=== PATIENT | female | born 1930 | race Two or more races ===

== ENCOUNTER 2016-02-23 09:28 | Observation (INO) | payer MEDICARE, MEDICAID ==
[~2016-02-23] VITALS: Ht 154.9 cm; Wt 60.6 kg
[~2016-02-23 09:28] MED LIST: AMLO5TAB2 PO; AMLO5TAB4 PO; ASPI81TA2 PO; CARV12.5 PO; CARV25TA PO; CARV6.252 PO; CHOL10002 PO; CLON0.1T PO; FURO-68 PO; FURO20TA3 PO; HYDR-2869 PO; Hydrocodone/Acetaminophen PO; LEVO125T5 PO; LEVO150T5 PO; LEVO500T8 PO; LISI-334 PO; POTA20TA4 PO; PRED20TA PO; SIMV20TA3 PO
[2016-02-23] MEDS ORDERED: AMLO5TAB2 PO (09:49)
--- NOTE | 2016-02-23 10:06 | EKG ---
[facility] [address] [place] [address] Test Date: 2016-02-23 Test Time: 09:32:44 Pat Name: MAE QUINONES Department: Room: Gender: F Cell Maker: : [id number] Requested By: MINI ST Order Number: [id number] Reading MD: Florence Braswell Measurements Intervals [place] Rate: 72 P: 43 MA: 166 QRS: -41 QRSD: 210 T: 137 QT: 478 QTc: 525 Interpretive Statements SINUS RHYTHM LEFT ATRIAL ABNORMALITY ABNORMAL LEFT AXIS DEVIATION LEFT BUNDLE BRANCH BLOCK Electronically Signed On 02-25-2016 23:59:07 [employer]ENTICE by Florence Braswell
[2016-02-23 10:08] LABS: BASO # 0.1 x10^3/uL (0.0-0.2); BASO % 1 % (0-3); EOS % 1 % (0-3); HEMATOCRIT 31.3 % (36.0-47.0); HEMOGLOBIN 10.7 g/dL (12.0-15.5); LYMPH # 0.8 x10^3/uL (1.0-4.8); LYMPH % 9 % (24-48); MEAN CORPUSCULAR HEMOGLOBIN 32 pg (25-35); MEAN CORPUSCULAR HGB CONC 34 g/dL (31-37); MEAN CORPUSCULAR VOLUME 94 fL (79-100); MONO % 4 % (0-9); NEUT % 85 % (31-73); PLATELET COUNT 310 x10^3/uL (140-400); RED BLOOD COUNT 3.33 x10^6/uL (3.50-5.40); RED CELL DISTRIBUTION WIDTH 14.3 % (11.5-14.5); WHITE BLOOD COUNT 8.6 x10^3/uL (4.0-11.0)
[2016-02-23 10:13] LABS: CALCIUM 9.1 mg/dL (8.5-10.1); CREATININE 0.7 mg/dL (0.6-1.0); GFR 79.2; POTASSIUM 4.4 mmol/L (3.5-5.1)
[2016-02-23 10:18] LABS: ALBUMIN 3.7 g/dL (3.4-5.0); DIRECT BILIRUBIN 0.2 mg/dL (0.0-0.2); TOTAL BILIRUBIN 1.1 mg/dL (0.2-1.0)
[2016-02-23 10:21] LABS: INR 1.2 (0.8-1.1)
[2016-02-23 10:24] LABS: CKMB MASS 0.7 ng/mL (0.0-3.6); CREATINE KINASE 41 U/L (26-192)
--- NOTE | 2016-02-23 10:28 | RAD ---
Portable chest, 02/23/2016: History: Chest pain Comparison is made to a study from 01/14/2016. A left-sided transvenous pacemaker remains in place with 2 leads extending into the right heart. The heart is enlarged. The pulmonary vascularity is congested with loss of vascular margination.. There are mixed interstitial and airspace opacities in both lungs most compatible with pulmonary edema. These have worsened since the previous study. There is probably pleural fluid contributing to the right basilar opacity. IMPRESSION: Worsening moderate bilateral pulmonary infiltrates most compatible with pulmonary edema due to congestive heart failure.
--- NOTE | 2016-02-23 10:55 | PHYS DOC ---
Past Medical History Past Medical History: CHF, High Cholesterol, Hypertension, Hypothyroid Additional Past Medical Histor: hiatal hernia Past Surgical History: Pacemaker Alcohol Use: Occasionally Drug Use: None Adult General Chief Complaint Chief Complaint: CHEST PAIN HPI HPI Patient is a 85 year old female who presents with shortness of breath. She speaks Romansh and her daughter is interpreting and states that this morning when she woke up she's been feeling short of breath. She denies any chest pain nausea vomiting. She states that since she sits up in a chair with oxygen she feels better. Currently she denies any chest pain and no according to daughter she was told she had some this morning. She was on 40 mg by mouth Lasix and had that decreased to 20 mg in January when she was admitted and followed up with Dr. Conklin. Review of Systems Review of Systems Constitutional: Denies fever or chills [] Eyes: Denies change in visual acuity, redness, or eye pain [] HENT: Denies nasal congestion or sore throat [] Respiratory: Denies cough, positive for shortness of breath [] Cardiovascular: No additional information not addressed in HPI [] GI: Denies abdominal pain, nausea, vomiting, bloody stools or diarrhea [] : Denies dysuria or hematuria [] Musculoskeletal: Denies back pain or joint pain [] Integument: Denies rash or skin lesions [] Neurologic: Denies headache, focal weakness or sensory changes [] Endocrine: Denies polyuria or polydipsia [] Current Medications Current Medications Current Medications Medications (Trade) Dose Ordered Sig/Kenneth Start Time Stop Time Status Last Admin Dose Admin Furosemide (Lasix) 20 mg 1X ONCE 02/23/16 11:45 02/23/16 11:46 DC 02/23/16 11:53 20 MG Allergies Allergies Allergies Coded Allergies Type Severity Reaction Last Updated Verified No Known Drug Allergies 11/24/13 No Physical Exam Physical Exam Constitutional: Well developed, well nourished, no acute distress, non-toxic appearance. [] HENT: Normocephalic, atraumatic, bilateral external ears normal, oropharynx moist, no oral exudates, nose normal. [] Eyes: PERRLA, EOMI, conjunctiva normal, no discharge. [] Neck: Normal range of motion, no tenderness, supple, no stridor. [] Cardiovascular:Heart rate regular rhythm, no murmur [] Lungs & Thorax: Coarse bilaterally with decreased breath sounds at the bases [] Abdomen: Bowel sounds normal, soft, no tenderness, no masses, no pulsatile masses. [] Skin: Warm, dry, no erythema, no rash. [] Back: No tenderness, no CVA tenderness. [] Extremities: No tenderness, no cyanosis, no clubbing, ROM intact, no edema. [] Neurologic: Alert and oriented X 3, normal motor function, normal sensory function, no focal deficits noted. [] Psychologic: Affect normal, judgement normal, mood normal. [] Current Patient Data Vital Signs Vital Signs Date Time Temp Pulse Resp B/P Pulse Ox O2 Delivery O2 Flow Rate FiO2 02/23/16 12:39 66 16 159/69 97 02/23/16 11:09 Nasal Cannula 2 02/23/16 09:32 97.7 97.7 Lab Values Laboratory Tests Test 02/23/16 09:45 02/23/16 10:50 White Blood Count 8.6x10^3/uL (4.0-11.0) Red Blood Count 3.33x10^6/uL (3.50-5.40) L Hemoglobin 10.7g/dL (12.0-15.5) L Hematocrit 31.3% (36.0-47.0) L Mean Corpuscular Volume 94fL (79-100) Mean Corpuscular Hemoglobin 32pg (25-35) Mean Corpuscular Hemoglobin Concent 34g/dL (31-37) Red Cell Distribution Width 14.3% (11.5-14.5) Platelet Count 310x10^3/uL (140-400) Neutrophils (%) (Auto) 85% (31-73) H Lymphocytes (%) (Auto) 9% (24-48) L Monocytes (%) (Auto) 4% (0-9) Eosinophils (%) (Auto) 1% (0-3) Basophils (%) (Auto) 1% (0-3) Neutrophils # (Auto) 7.3x10^3uL (1.8-7.7) Lymphocytes # (Auto) 0.8x10^3/uL (1.0-4.8) L Monocytes # (Auto) 0.3x10^3/uL (0.0-1.1) Eosinophils # (Auto) 0.1x10^3/uL (0.0-0.7) Basophils # (Auto) 0.1x10^3/uL (0.0-0.2) Prothrombin Time 14.0SEC (11.7-14.0) Prothrombin Time INR 1.2 (0.8-1.1) H Sodium Level 134mmol/L (136-145) L Potassium Level 4.4mmol/L (3.5-5.1) Chloride Level 101mmol/L (98-107) Carbon Dioxide Level 25mmol/L (21-32) Anion Gap 8 (6-14) Blood Urea Nitrogen 17mg/dL (7-20) Creatinine 0.7mg/dL (0.6-1.0) Estimated GFR (Cockcroft-Gault) 79.2 Glucose Level 211mg/dL (70-99) H Calcium Level 9.1mg/dL (8.5-10.1) Magnesium Level 2.0mg/dL (1.8-2.4) Total Bilirubin 1.1mg/dL (0.2-1.0) H Direct Bilirubin 0.2mg/dL (0.0-0.2) Aspartate Amino Transferase (AST) 31U/L (15-37) Alanine Aminotransferase (ALT) 32U/L (14-59) Alkaline Phosphatase 55U/L (46-116) Creatine Kinase 41U/L (26-192) Creatine Kinase MB (Mass) 0.7ng/mL (0.0-3.6) Creatine Kinase MB Relative Index % (0-4) Troponin I Quantitative < 0.017ng/mL (0.000-0.055) BT-Xrx-L-Type Natriuretic Peptide 4718pg/mL (0-449) H Total Protein 7.0g/dL (6.4-8.2) Albumin 3.7g/dL (3.4-5.0) Lipase 220U/L (73-393) Thyroid Stimulating Hormone (TSH) 1.865uIU/mL (0.358-3.74) Urine Collection Type Unknown Urine Color Yellow Urine Clarity Cloudy Urine pH 6.5 Urine Specific [place] 1.020 Urine Protein 30mg/dL (NEG-TRACE) Urine Glucose (UA) 100mg/dL (NEG) Urine Ketones (Stick) Negativemg/dL (NEG) Urine Blood Negative (NEG) Urine Nitrite Negative (NEG) Urine Bilirubin Negative (NEG) Urine Urobilinogen Dipstick 1.0mg/dL (0.2 mg/dL) Urine Leukocyte Esterase Moderate (NEG) Urine RBC 0/HPF (0-2) Urine WBC 1-4/HPF (0-4) Urine Bacteria Many/HPF (0-FEW) Laboratory Tests 02/23/16 09:45 Laboratory Tests 02/23/16 09:45 Microbiology 02/23/16 Urine Culture - Final, Complete 02/23/16 Urine Culture Result 1 (MEAGAN) - Final, Complete 02/23/16 Antimicrobic Susceptibility - Final, Complete EKG EKG EKG shows a paced rhythm that is unchanged from her previous EKG in January 2016 Radiology/Procedures Radiology/Procedures [facility] [address] [place] [address] IMAGING REPORT Signed PATIENT: MAE QUINONES ACCOUNT: [id number] : 1930 LOCATION: ER AGE: 85 SEX: F EXAM STATUS: REG ER ORD. PHYSICIAN: MINI ST MD REASON: chest pain PROCEDURE: PORTABLE CHEST 1V Portable chest, 02/23/2016: History: Chest pain Comparison is made to a study from 01/14/2016. A left-sided transvenous pacemaker remains in place with 2 leads extending into the right heart. The heart is enlarged. The pulmonary vascularity is congested with loss of vascular margination.. There are mixed interstitial and airspace opacities in both lungs most compatible with pulmonary edema. These have worsened since the previous study. There is probably pleural fluid contributing to the right basilar opacity. IMPRESSION: Worsening moderate bilateral pulmonary infiltrates most compatible with pulmonary edema due to congestive heart failure. DICTATED and SIGNED BY: HIPOLITO TUCKER MD DATE: 02/23/16 1023 CC: ANJEL SHARP; MINI ST MD ~ Impressions: Congestive heart failure exacerbation Course & Med Decision Making Course & Med Decision Making Pertinent Labs and Imaging studies reviewed. (See chart for details) She presents with signs and symptoms of heart failure. She was given IV Lasix and admitted to with consultation to Dr. Conklin. I did speak with Dr. Vences regarding the patient. Patient and daughter is agreeable to plan of admission. She is in stable condition at this time. Dragon Disclaimer Dragon Disclaimer This electronic medical record was generated, in whole or in part, using a voice recognition dictation system. Departure Departure Impression: Primary Impression: Acute on chronic congestive heart failure Disposition: ADMITTED INPATIENT Admitting Physician: Charlene Olaery Condition: STABLE Referrals: ANJEL SHARP (PCP) MINI ST MD Feb 23, 2016 10:55
[2016-02-23 11:06] LABS: BILIRUBIN,URINE NEGATIVE (NEG); GLUCOSE,URINE 100 mg/dL (NEG); NITRITE,URINE NEGATIVE (NEG); PH,URINE 6.5; PROTEIN,URINE 30 mg/dL (NEG-TRACE)
[2016-02-23 11:19] LABS: BACTERIA,URINE MANY /HPF (0-FEW); RBC,URINE 0 /HPF (0-2)
[2016-02-23] MEDS ORDERED: FUROSEMIDE 20 MG/2 ML VIAL IVP ONE (11:45)
[2016-02-23 14:10] VITALS: BP 147/78
[2016-02-23 15:00] VITALS: BP 147/78
[2016-02-23] MEDS ORDERED: FUROSEMIDE 40 MG/4 ML VIAL IVP ONE (15:30)
--- NOTE | 2016-02-23 16:47 | ACF ---
Admission Forms Criteria HEART FAILURE: COMMON COMPLICATIONS Clinical Indications for Inpatient Care (Place 'X' for any and all applicable criteria): Ongoing inpatient care may be indicated for heart failure with ANY ONE of the following (1)(2)(3)(4)(5): [ ]I. Ongoing need for care for primary condition requiring frequent therapy adjustments because of changes in cardiac function (eg, drug dosage changes for drugs that are renally metabolized) [ ]II. New-onset heart failure [ ]III. Heart failure with decreased urine output not responsive to attempts to optimize volume status [ ]IV. Acute cardiac ischemia causing or associated with failure [X]V. Complications of heart failure, including ANY ONE of the following: [ ]a) Pericardial effusion [ ]b) Symptomatic pleural effusion [ ]c) O2 saturation <90% or PO2 < 60 mm Hg (8.0 kPa) on room air or require baseline supplemental O2 [ ]d) Tachypnea [X]e) Dyspnea [ ]f) Syncope [ ]g) Change in mental status [ ]h) Acute renal insufficiency that is severe (reduction of more than 50% in estimated glomerular filtration rate from baseline) or progressive reduction of more than 25% in estimated glomerular filtration rate from baseline, with creatinine continuing to rise) [ ]i) Hemodynamic instability [ ]j) Anasarca [ ]k) Clinically significant metabolic abnormalities due to heart failure (eg, new-onset metabolic acidosis) Extended stay beyond goal length of stay for primary condition may be needed until ALL of the following are present(1)(3): [ ]a) Stable and effective diuretic regimen established (or patient on stable dialysis regimen if in chronic renal failure) [ ]b) Breathing comfortably at rest [ ]c) Saturation of arterial oxygen greater than 90% or at acceptable baseline [ ]d) Pulmonary edema absent or improved [ ]e) Hemodynamic stability [ ]f) Volume status acceptable on oral medication [ ]g) Peripheral or sacral edema absent or improved [ ]h) Renal function stable and manageable at a lower level of care [ ]i) Complications (eg, pleural effusion) resolved or manageable at a lower level of care [ ]j) Patient or caregiver has received written discharge instructions or educational material addressing activity level, diet, discharge medications, follow-up appointment, weight monitoring, and what to do if symptoms worsen The original [facility] content created by [employer] has been revised. The portions of the content which have been revised are identified through the use of italic text or in bold, and [facility] has neither reviewed nor approved the modified material.All other unmodified content is copyright [facility]. Please see references footnoted in the original [facility] edition 2016 Admission Criteria Met?: Pending BHUMIKA ALATORRE Feb 23, 2016 16:47
[2016-02-23 19:00] VITALS: BP 179/75
--- NOTE | 2016-02-23 19:09 | PDOC2 ---
CONSULT Date of Consult Date of Consult DATE: 02/23/16 TIME: 19:01 Reason for Consult Reason for Consult: Dyspnea Referring Physician Referring Physician: Dr. Oleary Identification/Chief Complaint Chief Complaint Dyspnea History of Present Illness Reason for Visit: This patient is a very pleasant 85-year-old lady that has a known history of heart rhythm problems post pacemaker. She's had previous admissions for acute CHF. She was at home when she started getting short of breath and this continued to get worse and due to that she was brought to the emergency room. After arrival in the ER she was seen and evaluated and he was decided to admit her. At the time that I saw her the patient states that she is still short of breath. Although doing a little better from when she came into the ER. She denies having any chest pains. She denies having any palpitations or loss of consciousness. The patient's heart rhythm was a paced rhythm since arrival. Past Medical History Cardiovascular: CHF, HTN, Hyperlipidemia, Other Endocrine: Hypothyroidism Past Surgical History Past Surgical History: Pacemaker Family History Family History: Hypertension Current Problem List Problem List Problems Medical Problems: (1) CHF (congestive heart failure) Status: Acute Current Medications Current Medications Current Medications Furosemide (Lasix) 20 mg 1X ONCE IVP Last administered on 02/23/16t 11:53; Start 02/23/16 at 11:45; Stop 02/23/16 at 11:46; Status DC Furosemide (Lasix) 40 mg 1X ONCE IVP Last administered on 02/23/16t 16:27; Start 02/23/16 at 15:30; Stop 02/23/16 at 15:31; Status DC Active Scripts Active Coreg (Carvedilol) 25 Mg Tablet 25 Mg PO BIDWMEALS Reported Amlodipine Besylate 5 Mg Tablet 5 Mg PO DAILY Clonidine Hcl 0.1 Mg Tablet 0.1 Mg PO BID Levothyroxine Sodium 125 Mcg Tablet 1 Tab PO DAILY Furosemide 20 Mg Tablet 1 Tab PO DAILY Aspirin 81 Mg Tab.chew 1 Tab PO DAILY Simvastatin 20 Mg Tablet 1 Tab PO QHS Lisinopril 20 Mg Tablet 1 Tab PO DAILY Hydralazine Hcl 50 Mg Tablet 1 Tab PO TID Allergies Allergies: Coded Allergies: No Known Drug Allergies (Unverified , 11/24/13) Physical Exam Physical Exam Patient in mild respiratory distress. H EENT pupils are reactive. Oral mucosa dry. Neck is supple 2 cm JVD. Lungs breath sounds are decreased, by basilar Rales. Heart regular rate and rhythm S1-S2 1 to 2/6 systolic murmur. Abdomen is soft bowel sounds are present. Extremities 1+ edema. Vitals VITALS Vital Signs Date Time Temp Pulse Resp B/P Pulse Ox O2 Delivery O2 Flow Rate FiO2 02/23/16 15:00 97.4 77 18 147/78 97 Nasal Cannula 2.0 97.4 Labs Labs Laboratory Tests Test 02/23/16 09:45 02/23/16 10:50 White Blood Count 8.6x10^3/uL (4.0-11.0) Red Blood Count 3.33x10^6/uL (3.50-5.40) Hemoglobin 10.7g/dL (12.0-15.5) Hematocrit 31.3% (36.0-47.0) Mean Corpuscular Volume 94fL (79-100) Mean Corpuscular Hemoglobin 32pg (25-35) Mean Corpuscular Hemoglobin Concent 34g/dL (31-37) Red Cell Distribution Width 14.3% (11.5-14.5) Platelet Count 310x10^3/uL (140-400) Neutrophils (%) (Auto) 85% (31-73) Lymphocytes (%) (Auto) 9% (24-48) Monocytes (%) (Auto) 4% (0-9) Eosinophils (%) (Auto) 1% (0-3) Basophils (%) (Auto) 1% (0-3) Neutrophils # (Auto) 7.3x10^3uL (1.8-7.7) Lymphocytes # (Auto) 0.8x10^3/uL (1.0-4.8) Monocytes # (Auto) 0.3x10^3/uL (0.0-1.1) Eosinophils # (Auto) 0.1x10^3/uL (0.0-0.7) Basophils # (Auto) 0.1x10^3/uL (0.0-0.2) Prothrombin Time 14.0SEC (11.7-14.0) Prothromb Time International Ratio 1.2 (0.8-1.1) Sodium Level 134mmol/L (136-145) Potassium Level 4.4mmol/L (3.5-5.1) Chloride Level 101mmol/L (98-107) Carbon Dioxide Level 25mmol/L (21-32) Anion Gap 8 (6-14) Blood Urea Nitrogen 17mg/dL (7-20) Creatinine 0.7mg/dL (0.6-1.0) Estimated GFR (Cockcroft-Gault) 79.2 Glucose Level 211mg/dL (70-99) Calcium Level 9.1mg/dL (8.5-10.1) Magnesium Level 2.0mg/dL (1.8-2.4) Total Bilirubin 1.1mg/dL (0.2-1.0) Direct Bilirubin 0.2mg/dL (0.0-0.2) Aspartate Amino Transf (AST/SGOT) 31U/L (15-37) Alanine Aminotransferase (ALT/SGPT) 32U/L (14-59) Alkaline Phosphatase 55U/L (46-116) Creatine Kinase 41U/L (26-192) Creatine Kinase MB (Mass) 0.7ng/mL (0.0-3.6) Creatine Kinase MB Relative Index % (0-4) Troponin I Quantitative < 0.017ng/mL (0.000-0.055) VJ-Cme-B-Type Natriuretic Peptide 4718pg/mL (0-449) Total Protein 7.0g/dL (6.4-8.2) Albumin 3.7g/dL (3.4-5.0) Lipase 220U/L (73-393) Thyroid Stimulating Hormone (TSH) 1.865uIU/mL (0.358-3.74) Urine Collection Type Unknown Urine Color Yellow Urine Clarity Cloudy Urine pH 6.5 Urine Specific [place] 1.020 Urine Protein 30mg/dL (NEG-TRACE) Urine Glucose (UA) 100mg/dL (NEG) Urine Ketones (Stick) Negativemg/dL (NEG) Urine Blood Negative (NEG) Urine Nitrite Negative (NEG) Urine Bilirubin Negative (NEG) Urine Urobilinogen Dipstick 1.0mg/dL (0.2 mg/dL) Urine Leukocyte Esterase Moderate (NEG) Urine RBC 0/HPF (0-2) Urine WBC 1-4/HPF (0-4) Urine Bacteria Many/HPF (0-FEW) Laboratory Tests Test 02/23/16 09:45 02/23/16 10:50 White Blood Count 8.6x10^3/uL (4.0-11.0) Red Blood Count 3.33x10^6/uL (3.50-5.40) Hemoglobin 10.7g/dL (12.0-15.5) Hematocrit 31.3% (36.0-47.0) Mean Corpuscular Volume 94fL (79-100) Mean Corpuscular Hemoglobin 32pg (25-35) Mean Corpuscular Hemoglobin Concent 34g/dL (31-37) Red Cell Distribution Width 14.3% (11.5-14.5) Platelet Count 310x10^3/uL (140-400) Neutrophils (%) (Auto) 85% (31-73) Lymphocytes (%) (Auto) 9% (24-48) Monocytes (%) (Auto) 4% (0-9) Eosinophils (%) (Auto) 1% (0-3) Basophils (%) (Auto) 1% (0-3) Neutrophils # (Auto) 7.3x10^3uL (1.8-7.7) Lymphocytes # (Auto) 0.8x10^3/uL (1.0-4.8) Monocytes # (Auto) 0.3x10^3/uL (0.0-1.1) Eosinophils # (Auto) 0.1x10^3/uL (0.0-0.7) Basophils # (Auto) 0.1x10^3/uL (0.0-0.2) Prothrombin Time 14.0SEC (11.7-14.0) Prothromb Time International Ratio 1.2 (0.8-1.1) Sodium Level 134mmol/L (136-145) Potassium Level 4.4mmol/L (3.5-5.1) Chloride Level 101mmol/L (98-107) Carbon Dioxide Level 25mmol/L (21-32) Anion Gap 8 (6-14) Blood Urea Nitrogen 17mg/dL (7-20) Creatinine 0.7mg/dL (0.6-1.0) Estimated GFR (Cockcroft-Gault) 79.2 Glucose Level 211mg/dL (70-99) Calcium Level 9.1mg/dL (8.5-10.1) Magnesium Level 2.0mg/dL (1.8-2.4) Total Bilirubin 1.1mg/dL (0.2-1.0) Direct Bilirubin 0.2mg/dL (0.0-0.2) Aspartate Amino Transf (AST/SGOT) 31U/L (15-37) Alanine Aminotransferase (ALT/SGPT) 32U/L (14-59) Alkaline Phosphatase 55U/L (46-116) Creatine Kinase 41U/L (26-192) Creatine Kinase MB (Mass) 0.7ng/mL (0.0-3.6) Creatine Kinase MB Relative Index % (0-4) Troponin I Quantitative < 0.017ng/mL (0.000-0.055) HV-Bnz-E-Type Natriuretic Peptide 4718pg/mL (0-449) Total Protein 7.0g/dL (6.4-8.2) Albumin 3.7g/dL (3.4-5.0) Lipase 220U/L (73-393) Thyroid Stimulating Hormone (TSH) 1.865uIU/mL (0.358-3.74) Urine Collection Type Unknown Urine Color Yellow Urine Clarity Cloudy Urine pH 6.5 Urine Specific [place] 1.020 Urine Protein 30mg/dL (NEG-TRACE) Urine Glucose (UA) 100mg/dL (NEG) Urine Ketones (Stick) Negativemg/dL (NEG) Urine Blood Negative (NEG) Urine Nitrite Negative (NEG) Urine Bilirubin Negative (NEG) Urine Urobilinogen Dipstick 1.0mg/dL (0.2 mg/dL) Urine Leukocyte Esterase Moderate (NEG) Urine RBC 0/HPF (0-2) Urine WBC 1-4/HPF (0-4) Urine Bacteria Many/HPF (0-FEW) Assessment/Plan Assessment/Plan This patient has a known history of previous episodes of CHF she comes in with an episode of acute on chronic CHF secondary to systolic dysfunction. I would recommend to diurese the patient. She has a problem with compliance and I have had her in the past on Lasix which had been reduced after she was seen her the last time because of hypotension. The patient is not very compliant with diet per fluid restrictions either. I have discussed all of this with the patient as well as the family. Thank you very much for asking me to participate in the care of this patient. MARYELLEN DUONG MD Feb 23, 2016 19:09
[2016-02-23] MEDS ORDERED: POTASSIUM CHLORIDE 20 MEQ TABLET.ER. PO ONE (19:15)
[2016-02-23] MEDS: CARVEDILOL 12.5 MG TABLET PO SCH (19:15)
[2016-02-23] MEDS ORDERED: ENOXAPARIN 40 MG/0.4 ML DISP.SYRIN. SQ SCH (20:00)
[2016-02-23] MEDS ORDERED: SIMVASTATIN 20 MG TABLET PO SCH (21:00)
[2016-02-23] MEDS ORDERED: HYDRALAZINE 50 MG TABLET PO SCH (21:00)
[2016-02-23] MEDS: CLONIDINE HCL 0.1 MG TABLET PO SCH (21:33)
[2016-02-23 23:00] VITALS: BP 90/42
[2016-02-24 03:00] VITALS: BP 102/54
[2016-02-24 04:37] LABS: BASO % 1 % (0-3); EOS % 1 % (0-3); HEMATOCRIT 28.7 % (36.0-47.0); LYMPH % 15 % (24-48); MEAN CORPUSCULAR HEMOGLOBIN 32 pg (25-35); MEAN CORPUSCULAR HGB CONC 35 g/dL (31-37); MEAN CORPUSCULAR VOLUME 93 fL (79-100); MONO % 7 % (0-9); NEUT % 77 % (31-73); PLATELET COUNT 262 x10^3/uL (140-400); RED BLOOD COUNT 3.09 x10^6/uL (3.50-5.40); RED CELL DISTRIBUTION WIDTH 14.1 % (11.5-14.5)
[2016-02-24 04:59] LABS: ALBUMIN 3.4 g/dL (3.4-5.0); ALBUMIN/GLOBULIN RATIO 1.2 (1.0-1.7); CALCIUM 8.7 mg/dL (8.5-10.1); GFR 52.4; POTASSIUM 4.5 mmol/L (3.5-5.1); TOTAL BILIRUBIN 1.2 mg/dL (0.2-1.0); TOTAL PROTEIN 6.2 g/dL (6.4-8.2)
[2016-02-24] MEDS ORDERED: LEVOTHYROXINE 125 MCG TABLET PO SCH (07:00)
[2016-02-24 07:21] VITALS: BP 112/56
[2016-02-24] MEDS ORDERED: POTASSIUM CHLORIDE 20 MEQ TABLET.ER. PO SCH (08:00)
[2016-02-24] MEDS: CLONIDINE HCL 0.1 MG TABLET PO SCH (09:00)
[2016-02-24] MEDS ORDERED: LISINOPRIL 20 MG TABLET PO SCH (09:00)
[2016-02-24] MEDS ORDERED: ASPIRIN 81 MG TAB.CHEW PO SCH (09:00)
[2016-02-24] MEDS ORDERED: AMLODIPINE BESYLATE 5 MG TABLET PO SCH (09:00)
[2016-02-24] MEDS: CARVEDILOL 12.5 MG TABLET PO SCH (09:23)
--- NOTE | 2016-02-24 09:45 | PDOC ---
Provider Note Provider Note H&P dictated. #[id number] KIERSTEN BALL MD Feb 24, 2016 09:45
--- NOTE | 2016-02-24 10:24 | RAD ---
Indication follow-up congestive heart failure. PA and lateral views of the chest were obtained and are compared to an examination one day earlier. Changes of congestive heart failure seen previously have improved substantially. Cardiomegaly is unchanged. Bilateral pleural effusions persist. A new finding is not seen. Bipolar cardiac pacing device is noted. IMPRESSION: Interval improvement. Bilateral pleural effusions.
[2016-02-24 11:01] VITALS: BP 107/47
[2016-02-24] MEDS ORDERED: FURO-68 PO (12:03)
--- NOTE | 2016-02-24 12:11 | HP ---
ADMIT DATE: 02/23/2016 LOCATION: [facility] REASON FOR ADMISSION TO THE HOSPITAL: Shortness of breath, chronic systolic heart failure. PRIMARY CARE PHYSICIAN: Dr. Gabriel. HISTORY OF PRESENT ILLNESS: The patient is an 85-year-old female, patient of Dr. Gabriel, with history of congestive heart failure, chronic systolic ejection fraction 20%. The patient was having shortness of breath and came into the Emergency Room. Her BNP was elevated. Chest x-ray shows CHF. She has crackles in the lungs, was given IV Lasix. Consultation was done for Cardiology and she is doing much better today. PAST MEDICAL HISTORY: Has history of congestive heart failure, hypertension, hyperlipidemia, hypothyroidism, chronic systolic heart failure, ejection fraction 20%. PAST SURGICAL HISTORY: Hiatal hernia, pacemaker. SOCIAL HISTORY: Denies smoking, social alcohol, and denies any drugs. FAMILY HISTORY: Positive for hypertension and heart disease. REVIEW OF SYSTEMS: 14-system review: CARDIAC: Complains of cough and shortness of breath. No fever, no yellow sputum. GASTROINTESTINAL: No nausea or vomiting. NEUROLOGICAL: No swelling. Rest of the 14-system was reviewed and negative. ALLERGIES: No known drug allergies. MEDICATIONS AT HOME: The patient is on Lasix 20 mg daily, amlodipine 5 mg daily, aspirin 81 mg daily, Coreg 25 mg twice a day, clonidine 0.1 twice a day, hydralazine 50 mg 3 times daily, levothyroxine 125 mcg daily, lisinopril 20 mg daily, simvastatin 20 mg daily. PHYSICAL EXAMINATION: GENERAL: The patient is pleasant, not in any distress. VITAL SIGNS: Temperature 97, pulse 73, respirations 28, blood pressure 167/77, and 88% on room air, 94 on 2 liters. HEENT: Head is atraumatic. Pupils equal. Oral cavity: No congestion. NECK: Supple. Thyroid not enlarged. JVD not elevated. CHEST: Symmetrical. Pacemaker left side of the chest. CARDIOVASCULAR: S1, S2. No murmurs. LUNGS: Crackles at the bases very fine. ABDOMEN: Soft, bowel sounds present, no mass palpable. EXTERNAL GENITALIA: No Morin. RECTAL: Deferred. EXTREMITIES: No calf tenderness, no edema. Pulses 1+. NEUROLOGIC: Cranial nerves intact. Power 5/5 in all extremities. LABORATORY DATA: Shows a white count of 8, hemoglobin 10, platelets 310. Electrolytes show sodium 134, potassium 4.4, chloride 101, bicarbonate 25, BUN 17, creatinine 0.7, glucose 211, and magnesium 2.0. LFTs were normal. ProBNP was 4718. UA was negative. INR 1.2. Chest x-ray: CHF. EKG: Normal sinus rhythm, no acute ischemic changes. FINAL IMPRESSION: 1. Rufak-fa-rhvbaop systolic heart failure. 2. 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 3. Hypertension. 4. Hyperlipidemia. 5. Poor left ventricular function, ejection fraction 20%. PLAN: At this time, was given IV Lasix. Replace potassium. Cardiology is going to follow and social service consult. Diet education and DVT prophylaxis and see how she does. KIERSTEN BALL MD DR: KARY/chel JOB#: [id number] / [id number] pooja Gabriel Dr.
--- NOTE | 2016-02-24 14:25 | PDOC ---
PROGRESS NOTES Subjective Subjective Patient is feeling well today and offers no cardiac complaints. Objective Objective Vital Signs Date Time Temp Pulse Resp B/P Pulse Ox O2 Delivery O2 Flow Rate FiO2 02/24/16 11:01 98.4 66 18 107/47 97 Nasal Cannula 2.0 98.4 Intake and Output 02/24/16 07:00 Intake Total 370 ml Balance 370 ml Intake Oral 370 ml # Voids 3 Physical Exam Physical Exam No change in cardiac exam Assessment Assessment Problems Medical Problems: (1) CHF (congestive heart failure) Status: Acute Plan Plan of Care Patient is stable from a cardiac standpoint. I recommend increasing Lasix to 40 mg qd. I spoke with her on the importance of limiting her fluid and salt intake. Comment Review of Relevant I have reviewed the following items bonny (where applicable) has been applied. Labs Laboratory Tests Test 02/23/16 09:45 02/23/16 10:50 02/23/16 19:30 02/24/16 02:53 White Blood Count 8.6x10^3/uL (4.0-11.0) 7.0x10^3/uL (4.0-11.0) Red Blood Count 3.33x10^6/uL (3.50-5.40) 3.09x10^6/uL (3.50-5.40) Hemoglobin 10.7g/dL (12.0-15.5) 10.0g/dL (12.0-15.5) Hematocrit 31.3% (36.0-47.0) 28.7% (36.0-47.0) Mean Corpuscular Volume 94fL (79-100) 93fL (79-100) Mean Corpuscular Hemoglobin 32pg (25-35) 32pg (25-35) Mean Corpuscular Hemoglobin Concent 34g/dL (31-37) 35g/dL (31-37) Red Cell Distribution Width 14.3% (11.5-14.5) 14.1% (11.5-14.5) Platelet Count 310x10^3/uL (140-400) 262x10^3/uL (140-400) Neutrophils (%) (Auto) 85% (31-73) 77% (31-73) Lymphocytes (%) (Auto) 9% (24-48) 15% (24-48) Monocytes (%) (Auto) 4% (0-9) 7% (0-9) Eosinophils (%) (Auto) 1% (0-3) 1% (0-3) Basophils (%) (Auto) 1% (0-3) 1% (0-3) Neutrophils # (Auto) 7.3x10^3uL (1.8-7.7) 5.4x10^3uL (1.8-7.7) Lymphocytes # (Auto) 0.8x10^3/uL (1.0-4.8) 1.0x10^3/uL (1.0-4.8) Monocytes # (Auto) 0.3x10^3/uL (0.0-1.1) 0.5x10^3/uL (0.0-1.1) Eosinophils # (Auto) 0.1x10^3/uL (0.0-0.7) 0.1x10^3/uL (0.0-0.7) Basophils # (Auto) 0.1x10^3/uL (0.0-0.2) 0.0x10^3/uL (0.0-0.2) Prothrombin Time 14.0SEC (11.7-14.0) Prothromb Time International Ratio 1.2 (0.8-1.1) Sodium Level 134mmol/L (136-145) 138mmol/L (136-145) Potassium Level 4.4mmol/L (3.5-5.1) 4.5mmol/L (3.5-5.1) Chloride Level 101mmol/L (98-107) 102mmol/L (98-107) Carbon Dioxide Level 25mmol/L (21-32) 25mmol/L (21-32) Anion Gap 8 (6-14) 11 (6-14) Blood Urea Nitrogen 17mg/dL (7-20) 23mg/dL (7-20) Creatinine 0.7mg/dL (0.6-1.0) 1.0mg/dL (0.6-1.0) Estimated GFR (Cockcroft-Gault) 79.2 52.4 Glucose Level 211mg/dL (70-99) 94mg/dL (70-99) Calcium Level 9.1mg/dL (8.5-10.1) 8.7mg/dL (8.5-10.1) Magnesium Level 2.0mg/dL (1.8-2.4) Total Bilirubin 1.1mg/dL (0.2-1.0) 1.2mg/dL (0.2-1.0) Direct Bilirubin 0.2mg/dL (0.0-0.2) Aspartate Amino Transf (AST/SGOT) 31U/L (15-37) 24U/L (15-37) Alanine Aminotransferase (ALT/SGPT) 32U/L (14-59) 27U/L (14-59) Alkaline Phosphatase 55U/L (46-116) 50U/L (46-116) Creatine Kinase 41U/L (26-192) Creatine Kinase MB (Mass) 0.7ng/mL (0.0-3.6) Creatine Kinase MB Relative Index % (0-4) Troponin I Quantitative < 0.017ng/mL (0.000-0.055) < 0.017ng/mL (0.000-0.055) < 0.017ng/mL (0.000-0.055) OC-Fzw-S-Type Natriuretic Peptide 4718pg/mL (0-449) Total Protein 7.0g/dL (6.4-8.2) 6.2g/dL (6.4-8.2) Albumin 3.7g/dL (3.4-5.0) 3.4g/dL (3.4-5.0) Lipase 220U/L (73-393) Thyroid Stimulating Hormone (TSH) 1.865uIU/mL (0.358-3.74) Urine Collection Type Unknown Urine Color Yellow Urine Clarity Cloudy Urine pH 6.5 Urine Specific [place] 1.020 Urine Protein 30mg/dL (NEG-TRACE) Urine Glucose (UA) 100mg/dL (NEG) Urine Ketones (Stick) Negativemg/dL (NEG) Urine Blood Negative (NEG) Urine Nitrite Negative (NEG) Urine Bilirubin Negative (NEG) Urine Urobilinogen Dipstick 1.0mg/dL (0.2 mg/dL) Urine Leukocyte Esterase Moderate (NEG) Urine RBC 0/HPF (0-2) Urine WBC 1-4/HPF (0-4) Urine Bacteria Many/HPF (0-FEW) BUN/Creatinine Ratio 23 (6-20) Albumin/Globulin Ratio 1.2 (1.0-1.7) Laboratory Tests Test 02/23/16 19:30 02/24/16 02:53 Troponin I Quantitative < 0.017ng/mL (0.000-0.055) < 0.017ng/mL (0.000-0.055) White Blood Count 7.0x10^3/uL (4.0-11.0) Red Blood Count 3.09x10^6/uL (3.50-5.40) Hemoglobin 10.0g/dL (12.0-15.5) Hematocrit 28.7% (36.0-47.0) Mean Corpuscular Volume 93fL (79-100) Mean Corpuscular Hemoglobin 32pg (25-35) Mean Corpuscular Hemoglobin Concent 35g/dL (31-37) Red Cell Distribution Width 14.1% (11.5-14.5) Platelet Count 262x10^3/uL (140-400) Neutrophils (%) (Auto) 77% (31-73) Lymphocytes (%) (Auto) 15% (24-48) Monocytes (%) (Auto) 7% (0-9) Eosinophils (%) (Auto) 1% (0-3) Basophils (%) (Auto) 1% (0-3) Neutrophils # (Auto) 5.4x10^3uL (1.8-7.7) Lymphocytes # (Auto) 1.0x10^3/uL (1.0-4.8) Monocytes # (Auto) 0.5x10^3/uL (0.0-1.1) Eosinophils # (Auto) 0.1x10^3/uL (0.0-0.7) Basophils # (Auto) 0.0x10^3/uL (0.0-0.2) Sodium Level 138mmol/L (136-145) Potassium Level 4.5mmol/L (3.5-5.1) Chloride Level 102mmol/L (98-107) Carbon Dioxide Level 25mmol/L (21-32) Anion Gap 11 (6-14) Blood Urea Nitrogen 23mg/dL (7-20) Creatinine 1.0mg/dL (0.6-1.0) Estimated GFR (Cockcroft-Gault) 52.4 BUN/Creatinine Ratio 23 (6-20) Glucose Level 94mg/dL (70-99) Calcium Level 8.7mg/dL (8.5-10.1) Total Bilirubin 1.2mg/dL (0.2-1.0) Aspartate Amino Transf (AST/SGOT) 24U/L (15-37) Alanine Aminotransferase (ALT/SGPT) 27U/L (14-59) Alkaline Phosphatase 50U/L (46-116) Total Protein 6.2g/dL (6.4-8.2) Albumin 3.4g/dL (3.4-5.0) Albumin/Globulin Ratio 1.2 (1.0-1.7) Microbiology 02/23/16 Urine Culture - Preliminary, Resulted 02/23/16 Urine Culture Result 1 (MEAGAN) - Preliminary, Resulted Medications Current Medications Furosemide (Lasix) 20 mg 1X ONCE IVP Last administered on 02/23/16 11:53; Start 02/23/16 at 11:45; Stop 02/23/16 at 11:46; Status DC Furosemide (Lasix) 40 mg 1X ONCE IVP Last administered on 02/23/16 16:27; Start 02/23/16 at 15:30; Stop 02/23/16 at 15:31; Status DC Amlodipine Besylate (Norvasc) 5 mg DAILY PO ; Start 02/24/16 at 09:00 Aspirin (Children'S Aspirin) 81 mg DAILY PO Last administered on 02/24/16 09: 23; Start 02/24/16 at 09:00 Clonidine HCl (Catapres) 0.1 mg BID PO Last administered on 02/23/16 21:33; Start 02/23/16 at 21:00 Hydralazine HCl (Apresoline) 50 mg TID PO Last administered on 02/23/16 21:32 ; Start 02/23/16 at 21:00 Levothyroxine Sodium (Synthroid) 125 mcg DAILY07 PO Last administered on 06:27; Start 02/24/16 at 07:00 Lisinopril (Prinivil) 20 mg DAILY PO Last administered on 02/24/16 09:24; Start 02/24/16 at 09:00 Simvastatin (Zocor) 20 mg QHS PO Last administered on 02/23/16 21:33; Start at 21:00 Carvedilol (Coreg) 12.5 mg BIDWMEALS PO Last administered on 02/24/16 09:23; Start 02/23/16 at 19:15 Potassium Chloride (Klor-Con) 40 meq 1X ONCE PO Last administered on 21:33; Start 02/23/16 at 19:15; Stop 02/23/16 at 19:17; Status DC Potassium Chloride (Klor-Con) 20 meq DAILYWBKFT PO Last administered on 09:23; Start 02/24/16 at 08:00 Enoxaparin Sodium (Lovenox 40mg Syringe) 40 mg Q24H SQ Last administered on 21:34; Start 02/23/16 at 20:00 Active Scripts Active Coreg (Carvedilol) 25 Mg Tablet 25 Mg PO BIDWMEALS Reported Lasix (Furosemide) 40 Mg Tablet 1 Tab PO DAILY Levothyroxine Sodium 125 Mcg Tablet 1 Tab PO DAILY Aspirin 81 Mg Tab.chew 1 Tab PO DAILY Simvastatin 20 Mg Tablet 1 Tab PO QHS Lisinopril 20 Mg Tablet 1 Tab PO DAILY Hydralazine Hcl 50 Mg Tablet 1 Tab PO TID Vitals/I & O Vital Sign - Last 24 Hours 02/23/16 02/23/16 02/23/16 02/23/16 14:28 15:00 19:00 19:15 Temp 97.4 98.6 97.4 98.6 Pulse 77 89 89 Resp 18 20 B/P 147/78 179/75 179/75 Pulse Ox 97 98 O2 Delivery Nasal Cannula Nasal Cannula Room Air O2 Flow Rate 2.0 2.0 02/23/16 02/23/16 02/23/16 02/23/16 20:06 21:32 21:33 23:00 Temp 98.7 98.7 Pulse 89 89 65 Resp 16 B/P 179/75 179/75 90/42 Pulse Ox 94 O2 Delivery Nasal Cannula Nasal Cannula O2 Flow Rate 2.0 2.0 02/24/16 02/24/16 02/24/16 02/24/16 03:00 07:21 07:40 09:23 Temp 97.9 98.0 97.9 98.0 Pulse 66 67 74 Resp 22 20 B/P 102/54 112/56 112/56 Pulse Ox 95 97 O2 Delivery Nasal Cannula Nasal Cannula Nasal Cannula O2 Flow Rate 2.0 2.0 2.0 02/24/16 02/24/16 09:24 11:01 Temp 98.4 98.4 Pulse 74 66 Resp 18 B/P 112/56 107/47 Pulse Ox 97 O2 Delivery Nasal Cannula O2 Flow Rate 2.0 Intake and Output 02/23/16 02/23/16 02/24/16 15:00 23:00 07:00 Intake Total 120 ml 250 ml Balance 120 ml 250 ml MARYELLEN DUONG MD Feb 24, 2016 14:25
== END 2016-02-24 13:45 | disposition home or self-care (01) ==
LOC: ER 09:28 → INTOOBSV 13:00 → 2 NORTH 13:00
PROVIDERS: ADMIT Internal Medicine; ATTEND Internal Medicine
DX: I50.22 Chronic systolic (congestive) heart failure (principal); E78.00 Pure hypercholesterolemia, unspecified; I10 Essential (primary) hypertension; E78.5 Hyperlipidemia, unspecified; E03.9 Hypothyroidism, unspecified; Z95.0 Presence of cardiac pacemaker; Z82.49 Family history of ischemic heart disease and other diseases of the circulatory system
CPT/HCPCS: 36415; 71010; 71020; 80048; 80053; 80076; 81001; 82553; 83690; 83735; 83880; 84443; 84484; 85027; 85610; 87086; 87186; 93005; 96372; 96374; 96376; 99285; G0378; J1650; J1940; G0379

== ENCOUNTER 2016-04-28 09:50 | Observation (INO) | payer MEDICARE, MEDICAID ==
[~2016-04-28] VITALS: Ht 154.9 cm; Wt 62.7 kg
--- NOTE | 2016-04-28 10:24 | EKG ---
[facility] [address] [place] [address] Test Date: 2016-04-28 Test Time: 10:14:31 Pat Name: MAE QUINONES Department: Room: Gender: F Rayon Tester: : [id number] Requested By: MILTON OJEDA Order Number: [id number] Reading MD: Measurements Intervals [place] Rate: 79 P: 142 HI: 150 QRS: -43 QRSD: 206 T: 138 QT: 458 QTc: 526 Interpretive Statements SUPRAVENTRICULAR RHYTHM ABNORMAL LEFT AXIS DEVIATION NON SPECIFIC INTRAVENTRICULAR BLOCK QRS(T) CONTOUR ABNORMALITY CONSISTENT WITH ANTEROSEPTAL INFARCT POSSIBLY RECENT CONSIDER INFERIOR INFARCT ABNORMAL ECG RI6.01 No previous ECG available for comparison
[2016-04-28 10:34] LABS: BASO % 1 % (0-3); EOS % 2 % (0-3); HEMATOCRIT 30.7 % (36.0-47.0); HEMOGLOBIN 10.5 g/dL (12.0-15.5); LYMPH # 0.8 x10^3/uL (1.0-4.8); LYMPH % 13 % (24-48); MEAN CORPUSCULAR HEMOGLOBIN 32 pg (25-35); MEAN CORPUSCULAR HGB CONC 34 g/dL (31-37); MEAN CORPUSCULAR VOLUME 94 fL (79-100); MONO % 6 % (0-9); NEUT % 78 % (31-73); PLATELET COUNT 246 x10^3/uL (140-400); RED BLOOD COUNT 3.28 x10^6/uL (3.50-5.40); RED CELL DISTRIBUTION WIDTH 14.5 % (11.5-14.5); WHITE BLOOD COUNT 6.1 x10^3/uL (4.0-11.0)
--- NOTE | 2016-04-28 10:52 | RAD ---
Portable chest, 04/28/2016: History: Lightheadedness, dizziness Comparison is made to a study from 02/24/2016. A left-sided transvenous pacemaker remains in place with 2 leads extending into the right heart. The heart is enlarged. There is calcific plaquing of the aorta. The basilar lung markings are prominent with Renetta B lines on the left. The findings suggest mild interstitial edema. Previously seen small bilateral pleural effusions are no longer evident. The bony structures are demineralized. IMPRESSION: Mild congestive heart failure with interstitial pulmonary edema.
[2016-04-28 10:59] LABS: CREATININE 0.8 mg/dL (0.6-1.0); GFR 67.8; POTASSIUM 4.1 mmol/L (3.5-5.1)
[2016-04-28 11:08] LABS: ALBUMIN 3.7 g/dL (3.4-5.0); DIRECT BILIRUBIN 0.3 mg/dL (0.0-0.2); TOTAL BILIRUBIN 1.3 mg/dL (0.2-1.0); TOTAL PROTEIN 7.2 g/dL (6.4-8.2)
--- NOTE | 2016-04-28 12:52 | PHYS DOC ---
Past Medical History Past Medical History: CHF, High Cholesterol, Hypertension, Hypothyroid Additional Past Medical Histor: hiatal hernia Past Surgical History: Pacemaker Alcohol Use: Occasionally Drug Use: None Adult General Chief Complaint Chief Complaint: DIZZY/LIGHT HEADED HPI HPI 85-year-old female presenting to the emergency department with lightheadedness. This started approximately 24 hours ago. It is worse when she stands up. She reports normal oral intake at home. She denies dysuria polyuria. She denies cough fevers or chills. Location generalized. Duration intermittent. No alleviating factors present. Review of systems is negative for chest pain shortness of breath abdominal pain nausea vomiting fevers chills. All other review of systems is negative unless otherwise noted in history of present illness. Review of Systems Review of Systems SEE ABOVE. Allergies Allergies Allergies Coded Allergies Type Severity Reaction Last Updated Verified No Known Drug Allergies 11/24/13 No Physical Exam Physical Exam Constitutional: Well developed, well nourished, no acute distress, non-toxic appearance. HENT: Normocephalic, atraumatic, bilateral external ears normal, oropharynx moist, no oral exudates, nose normal. [] Eyes: PERRLA, EOMI, conjunctiva normal, no discharge. Neck: Normal range of motion, no tenderness, supple, no stridor. [] Cardiovascular:Heart rate regular rhythm, no murmur [] Lungs & Thorax: Bilateral breath sounds clear to auscultation Abdomen: Bowel sounds normal, soft, no tenderness, no masses, no pulsatile masses. [] Skin: Warm, dry, no erythema, no rash. [] Back: No tenderness, no CVA tenderness. Extremities: No tenderness, no cyanosis, no clubbing, ROM intact, 1+ edema present Neurologic: Alert and oriented X 3, normal motor function, normal sensory function, no focal deficits noted. [] Psychologic: Affect normal, judgement normal, mood normal. [] Current Patient Data Vital Signs Vital Signs Date Time Temp Pulse Resp B/P Pulse Ox O2 Delivery O2 Flow Rate FiO2 04/28/16 11:17 76 149/67 97 Room Air 04/28/16 09:59 98.4 14 98.4 Lab Values Laboratory Tests Test 04/28/16 10:21 04/28/16 10:45 White Blood Count 6.1x10^3/uL (4.0-11.0) Red Blood Count 3.28x10^6/uL (3.50-5.40) L Hemoglobin 10.5g/dL (12.0-15.5) L Hematocrit 30.7% (36.0-47.0) L Mean Corpuscular Volume 94fL (79-100) Mean Corpuscular Hemoglobin 32pg (25-35) Mean Corpuscular Hemoglobin Concent 34g/dL (31-37) Red Cell Distribution Width 14.5% (11.5-14.5) Platelet Count 246x10^3/uL (140-400) Neutrophils (%) (Auto) 78% (31-73) H Lymphocytes (%) (Auto) 13% (24-48) L Monocytes (%) (Auto) 6% (0-9) Eosinophils (%) (Auto) 2% (0-3) Basophils (%) (Auto) 1% (0-3) Neutrophils # (Auto) 4.7x10^3uL (1.8-7.7) Lymphocytes # (Auto) 0.8x10^3/uL (1.0-4.8) L Monocytes # (Auto) 0.4x10^3/uL (0.0-1.1) Eosinophils # (Auto) 0.1x10^3/uL (0.0-0.7) Basophils # (Auto) 0.0x10^3/uL (0.0-0.2) Sodium Level 139mmol/L (136-145) Potassium Level 4.1mmol/L (3.5-5.1) Chloride Level 104mmol/L (98-107) Carbon Dioxide Level 25mmol/L (21-32) Anion Gap 10 (6-14) Blood Urea Nitrogen 15mg/dL (7-20) Creatinine 0.8mg/dL (0.6-1.0) Estimated GFR (Cockcroft-Gault) 67.8 Glucose Level 124mg/dL (70-99) H Calcium Level 9.0mg/dL (8.5-10.1) Total Bilirubin 1.3mg/dL (0.2-1.0) H Direct Bilirubin 0.3mg/dL (0.0-0.2) H Aspartate Amino Transferase (AST) 25U/L (15-37) Alanine Aminotransferase (ALT) 22U/L (14-59) Alkaline Phosphatase 57U/L (46-116) Troponin I Quantitative 0.026ng/mL (0.000-0.055) QA-Ant-V-Type Natriuretic Peptide 7619pg/mL (0-449) H Total Protein 7.2g/dL (6.4-8.2) Albumin 3.7g/dL (3.4-5.0) Lipase 236U/L (73-393) Lactic Acid Level 1.1mmol/L (0.4-2.0) Laboratory Tests 04/28/16 10:21 Laboratory Tests 04/28/16 10:21 EKG EKG [] EKG shows paced rhythm with a regular rate. Radiology/Procedures Radiology/Procedures [] Course & Med Decision Making Course & Med Decision Making Pertinent Labs and Imaging studies reviewed. (See chart for details) [] 85-year-old female presenting to the emergency department with lightheadedness and general weakness. Triage vital signs afebrile normal heart rate. Mild hypertension. Satting well on room air. EKG shows paced rhythm with a regular rate. Chest x-ray shows pulmonary edema. Blood work obtained. CBC shows mild anemia. Chemistry panel shows elevated proBNP. Troponin within the reference range of normal. Lactic acid normal. Chest x-ray shows pulmonary edema. Patient walked in the emergency department however felt severely short of breath. Patient subsequently admitted to our hospital for further evaluation workup and care. Dragon Disclaimer Dragon Disclaimer This electronic medical record was generated, in whole or in part, using a voice recognition dictation system. Departure Departure Impression: Primary Impression: Acute on chronic congestive heart failure Additional Impressions: CHF (congestive heart failure) Pulmonary edema Disposition: ADMITTED INPATIENT Admitting Physician: Charlene Oleary Condition: STABLE Referrals: ANJEL SHARP (PCP) Problem Qualifiers MILTON OJEDA MD Apr 28, 2016 12:52
[2016-04-28] MEDS ORDERED: ONDANSETRON PF 4 MG/2 ML VIAL. IV PRN (15:00)
[2016-04-28] MEDS ORDERED: MORPHINE SULFATE 2 MG/ML DISP.SYRIN. IV PRN (15:00)
[2016-04-28 15:38] LABS: BILIRUBIN,URINE NEGATIVE (NEG); GLUCOSE,URINE NEGATIVE (NEG); NITRITE,URINE NEGATIVE (NEG); PH,URINE 6.5; PROTEIN,URINE 100 mg/dL (NEG-TRACE)
[2016-04-28 15:53] LABS: BACTERIA,URINE MANY /HPF (0-FEW); RBC,URINE 0 /HPF (0-2); WBC,URINE OCC /HPF (0-4)
[2016-04-28 15:54] LABS: SQUAMOUS EPITHELIAL CELL,UR MOD /LPF
[2016-04-28 17:31] VITALS: BP 144/72
[2016-04-28 17:32] VITALS: BP 144/72
[2016-04-28 19:00] VITALS: BP 121/60
[2016-04-28] MEDS ORDERED: SIMVASTATIN 20 MG TABLET PO SCH (21:00)
[2016-04-28] MEDS: HYDRALAZINE 50 MG TABLET PO SCH (21:17)
[2016-04-28] MEDS ORDERED: ENOXAPARIN 40 MG/0.4 ML DISP.SYRIN. SQ SCH (22:00)
[2016-04-28 23:00] VITALS: BP 142/79
[2016-04-28] MEDS ORDERED: ACETAMINOPHEN 325 MG TABLET. PO PRN (23:00)
[2016-04-29] VITALS (8 sets, daily range): BP systolic 126–148; BP diastolic 61–75
--- NOTE | 2016-04-29 01:09 | ACF ---
Admission Forms Criteria HEART FAILURE Clinical Indications for Admission to Inpatient Care (Place 'X' for any and all applicable criteria): Admission is indicated by ANY ONE of the following(1)(2)(3)(4): [ ]I. Severe electrolyte abnormalities requiring inpatient care(9) [ ]II. Hemodynamic instability [ ]III. Anasarca [ ]IV. Acute cardiac ischemia causing or associated with failure (Also use Angina or Myocardial Infarction as appropriate) [ ]V. Cardiac arrhythmias of immediate concern [ ]. Precipitating cause for acute decompensation (eg, pneumonia, pulmonary embolism) requires inpatient care [ ]VII. Pulmonary edema that is very severe (eg, mechanical ventilation needed, imminent or likely, need for 100% oxygen to keep oxygen saturation above 90%) [ ]VIII. Inpatient admission required rather than observation care (Also use Heart Failure: Observation Care as appropriate) because of ANY ONE of the following: [ ]a) Pulmonary edema that is severe or worsening as indicated by ALL of the following: [ ]i) New need for oxygen therapy to keep oxygen saturation above 90% (or increased FiO2 need from baseline) [ ]ii) Has not improved sufficiently with emergency department or observation care IV diuretics or other heart failure treatments[C] [ ]b) Cognitive impairment that is severe or persistent [ ]c) Increased creatinine (new on laboratory test) with reduction of more than 50% in estimated glomerular filtration rate from baseline. [ ]d) Acute renal insufficiency (progressively (ongoing) rising creatinine (known from past laboratory test) with reduction of more than 25% in estimated glomerular filtration rate from baseline) [ ]e) Acute peripheral ischemia (eg, pulseless, cool, mottled, or cyanotic extremity) [ ]f) Acute renal failure [ ]g) Supplemental O2 or respiratory treatment for >24 hr that are performable only in acute inpatient setting [ ]h) Pulmonary artery catheter monitoring [ ]i) Other condition, treatment or monitoring requiring inpatient admission [ ]IX. Contraindications and/or Inappropriate clinical situations for Observational Care in patients with Heart Failure, when ANY ONE of the following is required: [ ]a) Patient with High risk of cardiac embolism (e.g, patients with previous cardiac embolism, LVEF < 40%, age >75 and patients with prosthetic valve) 18 [ ]b) Patient with Moderate risk including DM patient, CAD and patient aged 65-75 [ ]c) Patient with any change in cardiac biomarker especially troponin should be managed as high risk in an inpatient setting 19 [ ]d) Physician judgement irrespective of ECG and other diagnostic findings 20 [ ]e) Patients with hyponatremia have high risk for mortality and require more extensive care and length of stay 21 [ ]f) Need for large volume diuresis 21 [ ]g) Presence of renal insufficiency or hypotension limiting speed of diuresis 21 [ ]h) Acute cardiac Ischemia in the elderly 21 [ ]i) Patients with a 30 day risk of mortality based on a multidimensional prognostic index (MPI) [J,]21 [X]X. General contraindications and/or Inappropriate clinical situations for Observational Care in patients with Heart Failure, when ANY ONE of the following is required: [X]a) Prediction of prolongation of LOS based on ANY ONE of the following may be considered as a contraindication for observational care 2, 3, 4, 5, 6, 7, 8 , 9, 10, 11 [X]i) Age > 65 yrs. [ ]ii) Patient arriving by ambulance [ ]iii) Patient with high acuity [ ]iv) Patient requiring vital sign monitoring [ ]v) Patient on IV medication [ ]b) Systolic blood pressures 180mmHg 3,12 [ ]c) Patient with altered mental status including delirium and other alteration of consciousness, (3) [ ]d) Patient whose discharge disposition will be to a jail home or rehabilitation home should not be managed in Emergency Department Observation Unit. CMS rule requires 3 days hospital stay before such placement.3,13 [ ]e) Patient with failure to thrive due to broad array of etiologies 3,16,17 [ ]f) Inability to ambulate 3,14 Extended stay beyond goal length of stay may be needed for(1)(3)(21)(25): [ ]a) Cardiac ischemia, confirmed or suspected as precipitant [ ]b) Cardiogenic shock or refractory pulmonary edema [ ]c) Acute kidney injury or renal failure [ ]d) Respiratory failure (eg, need for noninvasive or invasive mechanical ventilation) (23) [ ]e) Concomitant pneumonia or significant electrolyte abnormality (eg, severe hyponatremia) [ ]f) Newly diagnosed (new onset) atrial fibrillation [ ]g) Stage IV chronic kidney disease (estimated glomerular filtration rate of less than 30 mL/min/1.73m2 (0.50 mL/sec/1.73m2), and not previously on chronic dialysis The original [facility] content created by [facility] has been revised. The portions of the content which have been revised are identified through the use of italic text or in bold, and [facility] has neither reviewed nor approved the modified material. All other unmodified content is copyright [facility]. Please see references footnoted in the original [facility] edition 2016 Admission Criteria Met?: Yes SHERLYN ZALDIVAR Apr 29, 2016 01:09
[2016-04-29 05:22] LABS: BASO # 0.1 x10^3/uL (0.0-0.2); BASO % 1 % (0-3); EOS % 2 % (0-3); HEMATOCRIT 30.2 % (36.0-47.0); HEMOGLOBIN 10.1 g/dL (12.0-15.5); LYMPH % 14 % (24-48); MEAN CORPUSCULAR HEMOGLOBIN 32 pg (25-35); MEAN CORPUSCULAR HGB CONC 33 g/dL (31-37); MEAN CORPUSCULAR VOLUME 94 fL (79-100); MONO % 7 % (0-9); NEUT % 77 % (31-73); PLATELET COUNT 251 x10^3/uL (140-400); RED BLOOD COUNT 3.19 x10^6/uL (3.50-5.40); RED CELL DISTRIBUTION WIDTH 14.8 % (11.5-14.5); WHITE BLOOD COUNT 7.3 x10^3/uL (4.0-11.0)
[2016-04-29 05:44] LABS: CREATININE 0.9 mg/dL (0.6-1.0); GFR 59.2; POTASSIUM 3.5 mmol/L (3.5-5.1)
[2016-04-29] MEDS ORDERED: LEVOTHYROXINE 125 MCG TABLET PO SCH (07:00)
[2016-04-29] MEDS ORDERED: CARVEDILOL 12.5 MG TABLET PO SCH (08:00)
[2016-04-29] MEDS: HYDRALAZINE 50 MG TABLET PO SCH ×2 (08:44→14:54)
[2016-04-29] MEDS ORDERED: ASPIRIN 81 MG TAB.CHEW PO SCH (09:00)
[2016-04-29] MEDS ORDERED: FUROSEMIDE 40 MG TABLET PO SCH (09:00)
[2016-04-29] MEDS ORDERED: LISINOPRIL 20 MG TABLET PO SCH (09:00)
--- NOTE | 2016-04-29 10:28 | PDOC ---
Provider Note Provider Note Pt seen.H&P dictated. #[id number] KIERSTEN BALL MD Apr 29, 2016 10:28
[2016-04-29] MEDS ORDERED: MECLIZINE HCL 12.5 MG TABLET. PO PRN (10:30)
[2016-04-29] MEDS ORDERED: MECL12.52 PO (10:31)
--- NOTE | 2016-04-29 12:40 | HP ---
ADMIT DATE: 04/28/2016 LOCATION: [facility]. REASON FOR ADMISSION TO THE HOSPITAL: 1. Dizziness. 2. Shortness of breath. 3. Chronic systolic heart failure. HISTORY OF PRESENT ILLNESS: The patient is an 85-year-old female, patient of Dr. Gabriel. She was having dizziness and short of breath with exercise and came to the Emergency Room and she was slightly congested in the lungs, was given Lasix and she was feeling better. PAST MEDICAL HISTORY: History of chronic systolic heart failure, ejection fraction 20%, has a pacemaker for sick sinus syndrome. She has history of hypertension, hypothyroidism, hyperlipidemia, and hiatal hernia. PAST SURGICAL HISTORY: As mentioned, has a pacemaker. ALLERGIES: No known allergies. PERSONAL HISTORY: No history of smoking, alcohol, or drug abuse. SOCIAL HISTORY: Lives at home with a family member; somebody lives with her. MEDICATIONS AT HOME: The patient is on aspirin 81 mg daily, Coreg 25 mg twice a day, Lasix 40 mg daily, hydralazine 50 mg 3 times daily, levothyroxine 125 mcg daily, lisinopril 20 mg daily, simvastatin 20 mg daily. FAMILY HISTORY: Unremarkable. REVIEW OF SYSTEMS: Complains of dizziness and lightheaded, short of breath with exertion. No shortness of breath when she is a stationary. No swelling in the legs. Rest of her system was reviewed and negative. PHYSICAL EXAMINATION: GENERAL: The patient is pleasant, not in any distress. VITAL SIGNS: At the time of admission shows a temperature 98, pulse 83, respirations 14, blood pressure 143/75, 98% on room air. HEENT: Head is atraumatic. Pupils equal. Oral cavity: No congestion. Dentures present. NECK: Supple. Thyroid not enlarged. JVD not elevated. CHEST: Symmetrical. LUNGS: Few crackles at the bases, pacemaker left side of chest. CARDIOVASCULAR: S1, S2. ABDOMEN: Soft, bowel sounds present, no mass palpable. EXTERNAL GENITALIA: No Morin. RECTAL: Deferred. EXTREMITIES: No calf tenderness. Pulses 1+. NEUROLOGIC: Cranial nerves intact. Power 5/5 in all extremities. LABORATORY DATA: Shows a white count of 6, hemoglobin 10, platelets 246. Electrolytes show sodium 139, potassium 4.1, chloride 104, bicarbonate 25, BUN 15, creatinine 0.8, glucose 124. LFTs were normal. ProBNP was 2619. Troponin was negative. Chest x-ray shows mild CHF. EKG done, report is pending. FINAL IMPRESSION: 1. Shortness of breath secondary to acute on chronic systolic heart failure. 2. Chronic systolic heart failure, ejection fraction 20%. 3. Sick sinus syndrome, pacemaker. 4. Hypothyroidism. 5. Hypertension. 6. Hyperlipidemia. 7. Dizziness secondary to probably inner ear problems. PLAN: Plan would be admit to the hospital. Cardiology consultation, Dr. Conklin, and she is feeling better. She wants to go home, probably could be discharged home. Give some Antivert for dizziness and see how she does. Follow with PCP in 1 week. KIERSTEN BALL MD DR: KARY/chel JOB#: [id number] / [id number] ANJEL Laird
--- NOTE | 2016-04-29 13:36 | PDOC2 ---
CONSULT Date of Consult Date of Consult DATE: 04/29/16 TIME: 13:33 Reason for Consult Reason for Consult: Exertional dyspnea Referring Physician Referring Physician: Dr Oleary Identification/Chief Complaint Chief Complaint Dizziness when standing up History of Present Illness Reason for Visit: 85 year old female who complains of dizziness worse when standing up. Has not been sick recently. Patient states she has been eating and drinking like normal , although she does not have much of an appetite on exam this morning. States that if she slowly stands up the dizziness does not really happen. Denies any palpitations, shortness of breath, edema, or other cardiac complaints. Past Medical History Cardiovascular: CHF, HTN, Hyperlipidemia, Other Endocrine: Hypothyroidism Past Surgical History Past Surgical History: Pacemaker Family History Family History: Hypertension Current Problem List Problem List Problems Medical Problems: (1) Acute on chronic congestive heart failure Status: Acute (2) CHF (congestive heart failure) Status: Acute (3) Pulmonary edema Status: Acute (4) SOBOE (shortness of breath on exertion) Status: Acute Current Medications Current Medications Current Medications Ondansetron HCl (Zofran) 4 mg PRN Q8HRS PRN IV NAUSEA/VOMITING; Start 04/28/16 at 15:00; Stop 04/29/16 at 14:59 Morphine Sulfate 2 mg PRN Q2HR PRN IV PAIN; Start 04/28/16 at 15:00; Stop 04/29 at 14:59 Aspirin (Children'S Aspirin) 81 mg DAILY PO Last administered on 04/29/16 08: 44; Start 04/29/16 at 09:00 Furosemide (Lasix) 40 mg DAILY PO Last administered on 04/29/16 08:44; Start 04/29/16 at 09:00 Hydralazine HCl (Apresoline) 50 mg TID PO Last administered on 04/29/16 08:44 ; Start 04/28/16 at 21:00 Levothyroxine Sodium (Synthroid) 125 mcg DAILY07 PO Last administered on 07:39; Start 04/29/16 at 07:00 Lisinopril (Prinivil) 20 mg DAILY PO Last administered on 04/29/16 08:43; Start 04/29/16 at 09:00 Simvastatin (Zocor) 20 mg QHS PO Last administered on 04/28/16 21:17; Start at 21:00 Carvedilol (Coreg) 25 mg BIDWMEALS PO Last administered on 04/29/16 08:44; Start 04/29/16 at 08:00 Enoxaparin Sodium (Lovenox 40mg Syringe) 40 mg Q24H SQ Last administered on 21:17; Start 04/28/16 at 22:00 Acetaminophen (Tylenol) 650 mg PRN Q6HRS PRN PO MILD PAIN / TEMP Last administered on 04/28/16 23:27; Start 04/28/16 at 23:00 Meclizine HCl (Antivert) 12.5 mg PRN Q6HRS PRN PO DIZZINESS; Start 04/29/16 at 10:30 Active Scripts Active Coreg (Carvedilol) 25 Mg Tablet 25 Mg PO BIDWMEALS Reported Lasix (Furosemide) 40 Mg Tablet 1 Tab PO DAILY Levothyroxine Sodium 125 Mcg Tablet 1 Tab PO DAILY Aspirin 81 Mg Tab.chew 1 Tab PO DAILY Simvastatin 20 Mg Tablet 1 Tab PO QHS Lisinopril 20 Mg Tablet 1 Tab PO DAILY Hydralazine Hcl 50 Mg Tablet 1 Tab PO TID Allergies Allergies: Coded Allergies: No Known Drug Allergies (Unverified , 11/24/13) Physical Exam General: Alert, Cooperative, No acute distress Lungs: Clear to auscultation, Normal air movement Heart: Regular rate Extremities: No edema Vitals VITALS Vital Signs Date Time Temp Pulse Resp B/P Pulse Ox O2 Delivery O2 Flow Rate FiO2 04/29/16 11:49 72 18 142/68 97 Room Air 04/29/16 10:57 97.4 97.4 Labs Labs Laboratory Tests Test 04/28/16 10:21 04/28/16 10:45 04/28/16 15:30 04/28/16 20:40 White Blood Count 6.1x10^3/uL (4.0-11.0) Red Blood Count 3.28x10^6/uL (3.50-5.40) Hemoglobin 10.5g/dL (12.0-15.5) Hematocrit 30.7% (36.0-47.0) Mean Corpuscular Volume 94fL (79-100) Mean Corpuscular Hemoglobin 32pg (25-35) Mean Corpuscular Hemoglobin Concent 34g/dL (31-37) Red Cell Distribution Width 14.5% (11.5-14.5) Platelet Count 246x10^3/uL (140-400) Neutrophils (%) (Auto) 78% (31-73) Lymphocytes (%) (Auto) 13% (24-48) Monocytes (%) (Auto) 6% (0-9) Eosinophils (%) (Auto) 2% (0-3) Basophils (%) (Auto) 1% (0-3) Neutrophils # (Auto) 4.7x10^3uL (1.8-7.7) Lymphocytes # (Auto) 0.8x10^3/uL (1.0-4.8) Monocytes # (Auto) 0.4x10^3/uL (0.0-1.1) Eosinophils # (Auto) 0.1x10^3/uL (0.0-0.7) Basophils # (Auto) 0.0x10^3/uL (0.0-0.2) Sodium Level 139mmol/L (136-145) Potassium Level 4.1mmol/L (3.5-5.1) Chloride Level 104mmol/L (98-107) Carbon Dioxide Level 25mmol/L (21-32) Anion Gap 10 (6-14) Blood Urea Nitrogen 15mg/dL (7-20) Creatinine 0.8mg/dL (0.6-1.0) Estimated GFR (Cockcroft-Gault) 67.8 Glucose Level 124mg/dL (70-99) Calcium Level 9.0mg/dL (8.5-10.1) Total Bilirubin 1.3mg/dL (0.2-1.0) Direct Bilirubin 0.3mg/dL (0.0-0.2) Aspartate Amino Transf (AST/SGOT) 25U/L (15-37) Alanine Aminotransferase (ALT/SGPT) 22U/L (14-59) Alkaline Phosphatase 57U/L (46-116) Troponin I Quantitative 0.026ng/mL (0.000-0.055) 0.021ng/mL (0.000-0.055) FG-Kue-O-Type Natriuretic Peptide 7619pg/mL (0-449) Total Protein 7.2g/dL (6.4-8.2) Albumin 3.7g/dL (3.4-5.0) Lipase 236U/L (73-393) Lactic Acid Level 1.1mmol/L (0.4-2.0) Urine Collection Type Unknown Urine Color Yellow Urine Clarity Cloudy Urine pH 6.5 Urine Specific [place] 1.020 Urine Protein 100mg/dL (NEG-TRACE) Urine Glucose (UA) Negativemg/dL (NEG) Urine Ketones (Stick) Negativemg/dL (NEG) Urine Blood Negative (NEG) Urine Nitrite Negative (NEG) Urine Bilirubin Negative (NEG) Urine Urobilinogen Dipstick 1.0mg/dL (0.2 mg/dL) Urine Leukocyte Esterase Trace (NEG) Urine RBC 0/HPF (0-2) Urine WBC Occ/HPF (0-4) Urine Squamous Epithelial Cells Mod/LPF Urine Bacteria Many/HPF (0-FEW) Urine Mucus Mod/LPF Test 04/29/16 03:15 White Blood Count 7.3x10^3/uL (4.0-11.0) Red Blood Count 3.19x10^6/uL (3.50-5.40) Hemoglobin 10.1g/dL (12.0-15.5) Hematocrit 30.2% (36.0-47.0) Mean Corpuscular Volume 94fL (79-100) Mean Corpuscular Hemoglobin 32pg (25-35) Mean Corpuscular Hemoglobin Concent 33g/dL (31-37) Red Cell Distribution Width 14.8% (11.5-14.5) Platelet Count 251x10^3/uL (140-400) Neutrophils (%) (Auto) 77% (31-73) Lymphocytes (%) (Auto) 14% (24-48) Monocytes (%) (Auto) 7% (0-9) Eosinophils (%) (Auto) 2% (0-3) Basophils (%) (Auto) 1% (0-3) Neutrophils # (Auto) 5.6x10^3uL (1.8-7.7) Lymphocytes # (Auto) 1.0x10^3/uL (1.0-4.8) Monocytes # (Auto) 0.5x10^3/uL (0.0-1.1) Eosinophils # (Auto) 0.1x10^3/uL (0.0-0.7) Basophils # (Auto) 0.1x10^3/uL (0.0-0.2) Sodium Level 139mmol/L (136-145) Potassium Level 3.5mmol/L (3.5-5.1) Chloride Level 103mmol/L (98-107) Carbon Dioxide Level 22mmol/L (21-32) Anion Gap 14 (6-14) Blood Urea Nitrogen 19mg/dL (7-20) Creatinine 0.9mg/dL (0.6-1.0) Estimated GFR (Cockcroft-Gault) 59.2 Glucose Level 140mg/dL (70-99) Calcium Level 9.0mg/dL (8.5-10.1) Troponin I Quantitative 0.019ng/mL (0.000-0.055) Laboratory Tests Test 04/28/16 15:30 04/28/16 20:40 04/29/16 03:15 Urine Collection Type Unknown Urine Color Yellow Urine Clarity Cloudy Urine pH 6.5 Urine Specific [place] 1.020 Urine Protein 100mg/dL (NEG-TRACE) Urine Glucose (UA) Negativemg/dL (NEG) Urine Ketones (Stick) Negativemg/dL (NEG) Urine Blood Negative (NEG) Urine Nitrite Negative (NEG) Urine Bilirubin Negative (NEG) Urine Urobilinogen Dipstick 1.0mg/dL (0.2 mg/dL) Urine Leukocyte Esterase Trace (NEG) Urine RBC 0/HPF (0-2) Urine WBC Occ/HPF (0-4) Urine Squamous Epithelial Cells Mod/LPF Urine Bacteria Many/HPF (0-FEW) Urine Mucus Mod/LPF Troponin I Quantitative 0.021ng/mL (0.000-0.055) 0.019ng/mL (0.000-0.055) White Blood Count 7.3x10^3/uL (4.0-11.0) Red Blood Count 3.19x10^6/uL (3.50-5.40) Hemoglobin 10.1g/dL (12.0-15.5) Hematocrit 30.2% (36.0-47.0) Mean Corpuscular Volume 94fL (79-100) Mean Corpuscular Hemoglobin 32pg (25-35) Mean Corpuscular Hemoglobin Concent 33g/dL (31-37) Red Cell Distribution Width 14.8% (11.5-14.5) Platelet Count 251x10^3/uL (140-400) Neutrophils (%) (Auto) 77% (31-73) Lymphocytes (%) (Auto) 14% (24-48) Monocytes (%) (Auto) 7% (0-9) Eosinophils (%) (Auto) 2% (0-3) Basophils (%) (Auto) 1% (0-3) Neutrophils # (Auto) 5.6x10^3uL (1.8-7.7) Lymphocytes # (Auto) 1.0x10^3/uL (1.0-4.8) Monocytes # (Auto) 0.5x10^3/uL (0.0-1.1) Eosinophils # (Auto) 0.1x10^3/uL (0.0-0.7) Basophils # (Auto) 0.1x10^3/uL (0.0-0.2) Sodium Level 139mmol/L (136-145) Potassium Level 3.5mmol/L (3.5-5.1) Chloride Level 103mmol/L (98-107) Carbon Dioxide Level 22mmol/L (21-32) Anion Gap 14 (6-14) Blood Urea Nitrogen 19mg/dL (7-20) Creatinine 0.9mg/dL (0.6-1.0) Estimated GFR (Cockcroft-Gault) 59.2 Glucose Level 140mg/dL (70-99) Calcium Level 9.0mg/dL (8.5-10.1) Assessment/Plan Assessment/Plan Acute on chronic CHF Pulmonary edema The patient has improved significantly since she was diuresed. Presently she is feeling fine and is back to her baseline. She may be discharged to be followed at home as an outpatient. Thank you very much for asking me to participate in the care of this patient. MARYELLEN DUONG MD Apr 29, 2016 13:36
== END 2016-04-29 16:34 | disposition home or self-care (01) ==
LOC: ER 09:50 → INTOOBSV 14:36 → 6 SOUTH 14:36
PROVIDERS: ADMIT Internal Medicine; ATTEND Internal Medicine
DX: I50.23 Acute on chronic systolic (congestive) heart failure (principal); E03.9 Hypothyroidism, unspecified; I10 Essential (primary) hypertension; E78.5 Hyperlipidemia, unspecified; R42 Dizziness and giddiness; E78.00 Pure hypercholesterolemia, unspecified; Z95.0 Presence of cardiac pacemaker
CPT/HCPCS: 36415; 71010; 80048; 80076; 81001; 83605; 83690; 83880; 84484; 85027; 87086; 93005; 96372; 97161; 99285; G0378; J1650; 87186; G0379

== ENCOUNTER 2016-05-18 08:18 | Observation (INO) | payer MEDICAID, MEDICARE ==
[~2016-05-18] VITALS: Ht 152.4 cm; Wt 64.7 kg
[~2016-05-18 08:18] MED LIST changes: +MECL12.52 PO
--- NOTE | 2016-05-18 08:41 | PHYS DOC ---
Past Medical History Past Medical History: CHF, High Cholesterol, Hypertension, Hypothyroid Additional Past Medical Histor: hiatal hernia Past Surgical History: Pacemaker Alcohol Use: Occasionally Drug Use: None Adult General Chief Complaint Chief Complaint: DIZZY/LIGHT HEADED HPI HPI Patient is a 85 year old female who presents with complains of dizziness. She states started yesterday and she is feeling nauseated for them. She states the room feels like it's pending. She denies any fevers chills vomiting, headache, neck stiffness, ear congestion, chest pain. She's had similar symptoms 2 months ago and was given meclizine but this made her confused and she is refusing to take it. Her son is the court interpreter. She lives with her 2 children, according to her son she walked into the room without any difficulty. Review of Systems Review of Systems Constitutional: Denies fever or chills [] Eyes: Denies change in visual acuity, redness, or eye pain [] HENT: Denies nasal congestion or sore throat [] Respiratory: Denies cough or shortness of breath [] Cardiovascular: No additional information not addressed in HPI [] GI: Denies abdominal pain, nausea, vomiting, bloody stools or diarrhea [] : Denies dysuria or hematuria [] Musculoskeletal: Denies back pain or joint pain [] Integument: Denies rash or skin lesions [] Neurologic: Denies headache, focal weakness or sensory changes, positive for dizziness Endocrine: Denies polyuria or polydipsia [] Current Medications Current Medications Current Medications Medications (Trade) Dose Ordered Sig/[facility] Start Time Stop Time Status Last Admin Dose Admin Aspirin (Yana Aspirin) 325 mg 1X ONCE 05/18/16 11:15 05/18/16 11:16 UNV Diazepam (Valium) 2.5 mg 1X ONCE 05/18/16 09:00 05/18/16 09:01 DC 05/18/16 09:13 2.5 MG Allergies Allergies Allergies Coded Allergies Type Severity Reaction Last Updated Verified No Known Drug Allergies 11/24/13 No Physical Exam Physical Exam Constitutional: Well developed, well nourished, no acute distress, non-toxic appearance. [] HENT: Normocephalic, atraumatic, bilateral external ears normal, oropharynx moist, no oral exudates, nose normal. [] Eyes: PERRLA, EOMI, conjunctiva normal, no discharge. [] Neck: Normal range of motion, no tenderness, supple, no stridor. [] Cardiovascular:Heart rate regular rhythm, no murmur [] Lungs & Thorax: Bilateral breath sounds clear to auscultation [] Abdomen: Bowel sounds normal, soft, no tenderness, no masses, no pulsatile masses. [] Skin: Warm, dry, no erythema, no rash. [] Back: No tenderness, no CVA tenderness. [] Extremities: No tenderness, no cyanosis, no clubbing, ROM intact, no edema. [] Neurologic: Alert and oriented X 3, normal motor function, normal sensory function, no focal deficits noted, they'll nerves II through XII grossly intact , finger-nose intact. Psychologic: Affect normal, judgement normal, mood normal. [] Current Patient Data Vital Signs Vital Signs Date Time Temp Pulse Resp B/P Pulse Ox O2 Delivery O2 Flow Rate FiO2 05/18/16 08:40 98.4 72 18 149/69 96 Room Air 98.4 Lab Values Laboratory Tests Test 05/18/16 09:05 White Blood Count 6.7x10^3/uL (4.0-11.0) Red Blood Count 3.15x10^6/uL (3.50-5.40) L Hemoglobin 10.0g/dL (12.0-15.5) L Hematocrit 29.8% (36.0-47.0) L Mean Corpuscular Volume 95fL (79-100) Mean Corpuscular Hemoglobin 32pg (25-35) Mean Corpuscular Hemoglobin Concent 34g/dL (31-37) Red Cell Distribution Width 15.0% (11.5-14.5) H Platelet Count 220x10^3/uL (140-400) Neutrophils (%) (Auto) 82% (31-73) H Lymphocytes (%) (Auto) 10% (24-48) L Monocytes (%) (Auto) 6% (0-9) Eosinophils (%) (Auto) 2% (0-3) Basophils (%) (Auto) 1% (0-3) Neutrophils # (Auto) 5.5x10^3uL (1.8-7.7) Lymphocytes # (Auto) 0.7x10^3/uL (1.0-4.8) L Monocytes # (Auto) 0.4x10^3/uL (0.0-1.1) Eosinophils # (Auto) 0.1x10^3/uL (0.0-0.7) Basophils # (Auto) 0.0x10^3/uL (0.0-0.2) Prothrombin Time 14.4SEC (11.7-14.0) H Prothrombin Time INR 1.2 (0.8-1.1) H Sodium Level 134mmol/L (136-145) L Potassium Level 4.6mmol/L (3.5-5.1) Chloride Level 101mmol/L (98-107) Carbon Dioxide Level 26mmol/L (21-32) Anion Gap 7 (6-14) Blood Urea Nitrogen 15mg/dL (7-20) Creatinine 0.8mg/dL (0.6-1.0) Estimated GFR (Cockcroft-Gault) 67.8 Glucose Level 107mg/dL (70-99) H Calcium Level 8.7mg/dL (8.5-10.1) Magnesium Level 2.2mg/dL (1.8-2.4) Total Bilirubin 1.1mg/dL (0.2-1.0) H Direct Bilirubin 0.3mg/dL (0.0-0.2) H Aspartate Amino Transferase (AST) 33U/L (15-37) Alanine Aminotransferase (ALT) 33U/L (14-59) Alkaline Phosphatase 60U/L (46-116) Creatine Kinase 34U/L (26-192) Creatine Kinase MB (Mass) 0.6ng/mL (0.0-3.6) Creatine Kinase MB Relative Index 1.8% (0-4) Troponin I Quantitative < 0.017ng/mL (0.000-0.055) WC-Hhr-G-Type Natriuretic Peptide 5570pg/mL (0-449) H Total Protein 6.3g/dL (6.4-8.2) L Albumin 3.5g/dL (3.4-5.0) Thyroid Stimulating Hormone (TSH) 2.677uIU/mL (0.358-3.74) Laboratory Tests 05/18/16 09:05 Laboratory Tests 05/18/16 09:05 EKG EKG Sinus rhythm with left axis deviation, left bundle branch morphology, no ST elevations or T-wave inversions that's different and her previous EKGs on February 23, 2016 and April 28, 2016, every RS 190 ms, QTc 523 ms, as interpreted by me. Radiology/Procedures Radiology/Procedures [place] [id number] IMAGING REPORT Signed PATIENT: MAE QUINONES ACCOUNT: [id number] : 1930 LOCATION: ER AGE: 85 SEX: F EXAM STATUS: PRE ER ORD. PHYSICIAN: MINI ST MD REASON: dizziness PROCEDURE: PORTABLE CHEST 1V Portable AP upright chest x-ray performed at 08 55 History: Dizziness for 2 days. History of CHF and hypertension. Comparison: 04/28/2016. Findings: There is an increase in right-sided pleural effusion. Small left-sided pleural effusion is now evident. Bilateral interstitial pulmonary edema is unchanged. Right hilar fullness is unchanged and may be secondary to prominent pulmonary artery but a right hilar mass or enlarged lymph node has not been excluded. Bipolar atrial-ventricular pacemaker is again noted. The heart size is prominent but stable. Mediastinum is unchanged. IMPRESSION: Worsening CHF. Unchanged prominent right hilum. DICTATED and SIGNED BY: AUNDREA CARO MD DATE: 05/18/16 0900 CC: ANJEL SHARP; MINI ST MD ~ [address] [id number] IMAGING REPORT Signed PATIENT: MAE QUINONES ACCOUNT: [id number] : 1930 LOCATION: ER AGE: 85 SEX: F EXAM STATUS: REG ER ORD. PHYSICIAN: MINI ST MD REASON: dizziness PROCEDURE: CT HEAD WO CONTRAST Clinical indications: Dizziness.. Technique: Noncontrast axial cross sectional scanning of the head was performed. RS Compliance Statement: One or more of the following individualized dose reduction techniques were utilized for this examination: 1. Automated exposure control 2. Adjustment of the mA and/or kV according to patient size 3. Use of iterative reconstruction technique Comparison: October 27, 2012. Findings: No acute intracranial hemorrhage or midline shift or mass-effect or hydrocephalus or extra-axial fluid collection is seen. There is a new focus of small hypodensity within the left parietal centrum semiovale seen on image 16 and series 2. Chronic bilateral periventricular white matter hypodensity is seen elsewhere consistent with chronic small vessel ischemic disease. No skull fracture or pneumocephalus is seen. No opacification of the mastoid sinuses or the paranasal sinuses is seen. The maxillary sinuses are not completely seen in this study. Impression: No acute intracranial hemorrhage is seen. Small focus of hypodensity of the left parietal centrum semiovale. Acute ischemia is possible. DICTATED and SIGNED BY: AUNDREA CARO MD DATE: 05/18/16 1022 CC: ANJEL SHARP; MINI ST MD ~ Impressions: Dizziness Worsening heart failure nonischemic stroke Course & Med Decision Making Course & Med Decision Making Pertinent Labs and Imaging studies reviewed. (See chart for details) CT scan season area that's concerning for ischemia. Spoke with Dr. Oleary, who is agreeable to admit the patient and consult neurology. Spoke with Dr. Apodaca, who recommends giving the patient 325 of aspirin now. Patient's agreeable plan is in stable condition this time. Dragon Disclaimer Dragon Disclaimer This electronic medical record was generated, in whole or in part, using a voice recognition dictation system. Departure Departure Impression: Primary Impression: Stroke Disposition: ADMITTED INPATIENT Admitting Physician: Charlene Oleary Condition: STABLE Referrals: ANJEL SHARP (PCP) MINI ST MD May 18, 2016 08:41
[2016-05-18] MEDS ORDERED: DIAZEPAM 10 MG/2 ML DISP.SYRIN. IV ONE (09:00)
--- NOTE | 2016-05-18 09:10 | RAD ---
Portable AP upright chest x-ray performed at 08 55 History: Dizziness for 2 days. History of CHF and hypertension. Comparison: 04/28/2016. Findings: There is an increase in right-sided pleural effusion. Small left-sided pleural effusion is now evident. Bilateral interstitial pulmonary edema is unchanged. Right hilar fullness is unchanged and may be secondary to prominent pulmonary artery but a right hilar mass or enlarged lymph node has not been excluded. Bipolar atrial-ventricular pacemaker is again noted. The heart size is prominent but stable. Mediastinum is unchanged. IMPRESSION: Worsening CHF. Unchanged prominent right hilum.
[2016-05-18 09:19] LABS: BASO % 1 % (0-3); EOS % 2 % (0-3); HEMATOCRIT 29.8 % (36.0-47.0); LYMPH # 0.7 x10^3/uL (1.0-4.8); LYMPH % 10 % (24-48); MEAN CORPUSCULAR HEMOGLOBIN 32 pg (25-35); MEAN CORPUSCULAR HGB CONC 34 g/dL (31-37); MEAN CORPUSCULAR VOLUME 95 fL (79-100); MONO % 6 % (0-9); NEUT % 82 % (31-73); PLATELET COUNT 220 x10^3/uL (140-400); RED BLOOD COUNT 3.15 x10^6/uL (3.50-5.40); WHITE BLOOD COUNT 6.7 x10^3/uL (4.0-11.0)
[2016-05-18 09:25] LABS: CALCIUM 8.7 mg/dL (8.5-10.1); CREATININE 0.8 mg/dL (0.6-1.0); GFR 67.8; POTASSIUM 4.6 mmol/L (3.5-5.1)
[2016-05-18 09:30] LABS: ALBUMIN 3.5 g/dL (3.4-5.0); DIRECT BILIRUBIN 0.3 mg/dL (0.0-0.2); MAGNESIUM 2.2 mg/dL (1.8-2.4); TOTAL BILIRUBIN 1.1 mg/dL (0.2-1.0); TOTAL PROTEIN 6.3 g/dL (6.4-8.2)
[2016-05-18 09:45] LABS: CKMB INDEX 1.8 % (0-4); CKMB MASS 0.6 ng/mL (0.0-3.6)
--- NOTE | 2016-05-18 10:30 | RAD ---
Clinical indications: Dizziness.. Technique: Noncontrast axial cross sectional scanning of the head was performed. PQRS Compliance Statement: One or more of the following individualized dose reduction techniques were utilized for this examination: 1. Automated exposure control 2. Adjustment of the mA and/or kV according to patient size 3. Use of iterative reconstruction technique Comparison: October 27, 2012. Findings: No acute intracranial hemorrhage or midline shift or mass-effect or hydrocephalus or extra-axial fluid collection is seen. There is a new focus of small hypodensity within the left parietal centrum semiovale seen on image 16 and series 2. Chronic bilateral periventricular white matter hypodensity is seen elsewhere consistent with chronic small vessel ischemic disease. No skull fracture or pneumocephalus is seen. No opacification of the mastoid sinuses or the paranasal sinuses is seen. The maxillary sinuses are not completely seen in this study. Impression: No acute intracranial hemorrhage is seen. Small focus of hypodensity of the left parietal centrum semiovale. Acute ischemia is possible.
[2016-05-18 10:54] LABS: INR 1.2 (0.8-1.1); PROTHROMBIN TIME PATIENT 14.4 SEC (11.7-14.0)
[2016-05-18] MEDS ORDERED: ASPIRIN 325 MG TABLET PO ONE (11:15)
[2016-05-18 11:19] LABS: BILIRUBIN,URINE NEGATIVE (NEG); GLUCOSE,URINE NEGATIVE (NEG); NITRITE,URINE NEGATIVE (NEG); PH,URINE 7.5; PROTEIN,URINE 30 mg/dL (NEG-TRACE)
[2016-05-18 11:43] LABS: BACTERIA,URINE 0 /HPF (0-FEW); RBC,URINE 0 /HPF (0-2); SQUAMOUS EPITHELIAL CELL,UR OCC /LPF
[2016-05-18] MEDS ORDERED: POTA10TA10 PO (13:09)
[2016-05-18] MEDS ORDERED: FURO-69 PO (13:09)
[2016-05-18 13:30] VITALS: BP 156/81
--- NOTE | 2016-05-18 14:08 | EKG ---
[facility] [address] [place] [address] Test Date: 2016-05-18 Test Time: 08:37:25 Pat Name: MAE QUINONES Department: Room: Gender: F Radiation Therapy Technologist: : 1930 Requested By: MINI ST Order Number: [id number] Reading MD: Measurements Intervals [place] Rate: 76 P: -4 CA: 162 QRS: -43 QRSD: 198 T: 137 QT: 460 QTc: 523 Interpretive Statements SINUS RHYTHM ABNORMAL LEFT AXIS DEVIATION NON SPECIFIC INTRAVENTRICULAR BLOCK QRS(T) CONTOUR ABNORMALITY CONSISTENT WITH ANTEROSEPTAL INFARCT POSSIBLY RECENT CONSISTENT WITH INFERIOR INFARCT POSSIBLY RECENT ABNORMAL ECG RI6.01 No previous ECG available for comparison
[2016-05-18 15:00] VITALS: BP 150/82
[2016-05-18] MEDS: POTASSIUM CHLORIDE 20 MEQ TABLET.ER. PO SCH (16:04)
[2016-05-18] MEDS: LEVOTHYROXINE 125 MCG TABLET PO SCH (16:04)
[2016-05-18] MEDS: FUROSEMIDE 20 MG TABLET PO SCH (16:04)
[2016-05-18] MEDS: CARVEDILOL 12.5 MG TABLET. PO SCH (16:05)
[2016-05-18] MEDS: LISINOPRIL 20 MG TABLET PO SCH (16:05)
[2016-05-18] MEDS ORDERED: ONDANSETRON PF 4 MG/2 ML VIAL. IV PRN (16:30)
[2016-05-18] MEDS ORDERED: ASPIRIN CHEWABLE 81 MG TABLET. PO SCH (17:00)
--- NOTE | 2016-05-18 17:05 | RAD ---
Clinical indications: Dizziness and CVA. Duplex sonography of the cervical portion of both carotid arteries was performed including color flow imaging and spectral waveform analysis with flow velocity measurement and middleton scale evaluation. Right side: Peak systolic flow velocity of the CCA is 39 cm/sec. Peak systolic flow velocity of the ICA is 73 cm/sec. Thus, the ICA/CCA ratio is 1.9. Peak end diastolic flow velocity of the ICA is 19 cm/sec. The peak systolic velocity of the ECA is 54 cm/sec. Left side: Peak systolic flow velocity of the CCA is 127 cm/sec. Peak systolic flow velocity of the ICA is 90 cm/sec. Thus, the ICA/CCA ratio is 0.7. Peak end diastolic flow velocity of the ICA is 23 cm/sec. Peak systolic flow velocity of the ECA is 53 cm/sec. No significant stenosis is seen within either carotid bifurcation or proximal ICA. There is asymmetric increase in flow velocity within the left CCA due to tortuosity of the left CCA. Antegrade vertebral flow is seen bilaterally. The measurements were made using the NASCET criteria. Impression:No significant plaque formation is identified within the cervical portion of either carotid artery.
--- NOTE | 2016-05-18 17:34 | ACF ---
Admission Forms Criteria STROKE: ISCHEMIC Clinical Indications for Admission to Inpatient Care (Place 'X' for any and all applicable criteria): Admission is indicated for ANY ONE of the following(1)(2)(3)(4): [X]I. Acute stroke Extended stay beyond goal length of stay may be needed for(1)(2) [ ]a) Major deficit or clinical deterioration [ ]b) Hospital-acquired infection (eg, urinary tract infection, pneumonia) [ ]c) Embolic cause of stroke [ ]d) Venous thromboembolism(9) [ ]e) Seizures [ ]f) Bleeding (eg, cerebral) [ ]g) Increased intracranial pressure [ ]h) Comorbidities [ ]i) Surgical intervention The original [email or web address]. content created by [employer] has been revised. The portions of the content which have been revised are identified through the use of italic text or in bold, and [facility] [employer] has neither reviewed nor approved the modified material. All other unmodified content is copyright [facility] [employer]. Please see references footnoted in the original [facility] [employer] edition 2016 Admission Criteria Met?: Yes SALINAS HOBBS May 18, 2016 17:34
--- NOTE | 2016-05-18 18:36 | PDOC2 ---
NEUROLOGY CONSULT Date of Admission Date of Admission DATE: 05/18/16 TIME: 18:20 Reason for Consult Reason for Consult: IMPRESSION: Acute/subacute left parietal centrum semiovale infarct? Dizziness for 2 weeks, multifactorial. CHF, worse. HTN HLD Hypothyroidism Drinking, longstanding RECOMMENDATIONS/PLAN: Increase ASA to 325 mg daily, will change to Plavix after CVA is confirmed. Repeat HCT w/o contrast in a.m. CTA if dizziness worse. No MRI due to pacemaker. Echo Fasting lipid penal in a.m Lab: see orders. OT/PT Discussed with her daughter in all detail at bedside. Carotid A US + Doppler: No high grade stenosis. HISTORY OF THE PRESENT ILLNESS: 85-y-old [place] origin female patient with above medical disease has been having symptoms of persistent dizziness for about 2 weeks. She stated her dizziness is worse at lying position, but better at sitting position that may has effects of CHF. She was treated with Meclizine and she said it help her dizziness in short period of time but caused her confusion per her daughter. No tinnitus. No focalized sensory or motor deficits noted. She has some nausea but no projectile vomiting. PAST MEDICAL HISTORY: Please see above. PAST SURGERY HISTORY: Pacemaker Placement ALLERGY: Reviewed. MEDICATIONS: Refer to [facility] FAMILY HISTORY: Non contributory. SOCIAL HISTORY: Lives with her family. Denies smoking and illicit drug use. She drinks 1-2 beers 2 or more times a week for 66 years. REVIEW OF SYSTEMS: Constitutional: No malnutrition, weight loss, cachexia. Head: No recent traumatic brain or head injury. Skin: No edema, or rash. Ear: No infection, tinnitus. Eyes: No vision loss or color blindness. Nose: No bleeding or purulent discharges. Hearing: Mild hearing decrease. Neck: No injury. Breast: No history of cancer, masses,or discharges. Cardiac: CHF, Pacemaker Placement, HTN, HLD. Pulmonary: No COPD. GI: Hiatal hernia.. Urinary/genital: UTI. Endocrinologic: Hypothyroidism. Skeletomuscular: Generalized weakness. Neurological: see HP. Psychiatric: Denies drug use/abuse. Otherwise, not [id number] review of systems. PHYSICAL EXAMINATION: General appearance is in subacute distress. HEENT: Normocephalic and nontraumatic. Eyes, nose, ears, and throat are unremarkable. Neck is supple. No lymphadenopathy. No bruits are heard over the carotid artery. No crepitus. Cardiovascular: S1, S2, regular rate and rhythm. Pulmonary: Clear to auscultation bilaterally. Abdomen: Bowel sounds are positive. Extremities: No rash, lesions, or edema. No restriction of range of motion NEUROLOGICAL EXAMINATION: awake. Oriented to place and person and partially to time. PERRL. EOMI. No obvious nystagmus noted. CN: no focal findings. Muscle tone: within normal. Muscle strength: 4+ DTR: 2- Plantar reflex: Flexor response bilaterally Gait: not examined in bed. Sensory exam: no abnormal findings. No obvious cerebellar signs elicited. F-T-N test fine bilaterally. Current Medications Current Medications Current Medications Diazepam (Valium) 2.5 mg 1X ONCE IV Last administered on 05/18/16 09:13; Start 05/18/16 at 09:00; Stop 05/18/16 at 09:01; Status DC Aspirin (Yana Aspirin) 325 mg 1X ONCE PO Last administered on 05/18/16 11:15 ; Start 05/18/16 at 11:15; Stop 05/18/16 at 11:19; Status DC Aspirin (Children'S Aspirin) 81 mg DAILY PO Last administered on 05/18/16 16: 04; Start 05/18/16 at 17:00; Stop 05/18/16 at 17:00; Status DC Furosemide (Lasix) 20 mg DAILY PO Last administered on 05/18/16 16:04; Start 05/18/16 at 16:00 Hydralazine HCl (Apresoline) 50 mg TID PO ; Start 05/18/16 at 21:00 Levothyroxine Sodium (Synthroid) 125 mcg DAILY07 PO Last administered on 16:04; Start 05/18/16 at 17:00 Lisinopril (Prinivil) 20 mg DAILY PO Last administered on 05/18/16 16:05; Start 05/18/16 at 17:00 Simvastatin (Zocor) 20 mg QHS PO ; Start 05/18/16 at 21:00 Carvedilol (Coreg) 25 mg BIDWMEALS PO Last administered on 05/18/16 16:05; Start 05/18/16 at 17:00 Potassium Chloride (Klor-Con) 20 meq BIDWMEALS PO Last administered on 16:04; Start 05/18/16 at 17:00 Aspirin (Ecotrin) 325 mg DAILYWBKFT PO ; Start 05/19/16 at 08:00 Ondansetron HCl (Zofran) 4 mg PRN Q6HRS PRN IV NAUSEA/VOMITING Last administered on 05/18/16 16:37; Start 05/18/16 at 16:30 Active Scripts Active Coreg (Carvedilol) 25 Mg Tablet 25 Mg PO BIDWMEALS Reported Potassium Chloride 10 Meq Tablet.er 20 Meq PO BID Lasix (Furosemide) 20 Mg Tablet 1 Tab PO DAILY Levothyroxine Sodium 125 Mcg Tablet 1 Tab PO DAILY Aspirin 81 Mg Tab.chew 1 Tab PO DAILY Simvastatin 20 Mg Tablet 1 Tab PO QHS Lisinopril 20 Mg Tablet 1 Tab PO DAILY Hydralazine Hcl 50 Mg Tablet 1 Tab PO TID Allergies Allergies: Coded Allergies: No Known Drug Allergies (Unverified , 11/24/13) Vitals VITALS Vital Signs Date Time Temp Pulse Resp B/P Pulse Ox O2 Delivery O2 Flow Rate FiO2 05/18/16 16:05 88 147/81 05/18/16 15:00 96.7 20 91 Room Air 96.7 Labs Labs Laboratory Tests Test 05/18/16 09:05 05/18/16 11:00 White Blood Count 6.7x10^3/uL (4.0-11.0) Red Blood Count 3.15x10^6/uL (3.50-5.40) Hemoglobin 10.0g/dL (12.0-15.5) Hematocrit 29.8% (36.0-47.0) Mean Corpuscular Volume 95fL (79-100) Mean Corpuscular Hemoglobin 32pg (25-35) Mean Corpuscular Hemoglobin Concent 34g/dL (31-37) Red Cell Distribution Width 15.0% (11.5-14.5) Platelet Count 220x10^3/uL (140-400) Neutrophils (%) (Auto) 82% (31-73) Lymphocytes (%) (Auto) 10% (24-48) Monocytes (%) (Auto) 6% (0-9) Eosinophils (%) (Auto) 2% (0-3) Basophils (%) (Auto) 1% (0-3) Neutrophils # (Auto) 5.5x10^3uL (1.8-7.7) Lymphocytes # (Auto) 0.7x10^3/uL (1.0-4.8) Monocytes # (Auto) 0.4x10^3/uL (0.0-1.1) Eosinophils # (Auto) 0.1x10^3/uL (0.0-0.7) Basophils # (Auto) 0.0x10^3/uL (0.0-0.2) Prothrombin Time 14.4SEC (11.7-14.0) Prothromb Time International Ratio 1.2 (0.8-1.1) Sodium Level 134mmol/L (136-145) Potassium Level 4.6mmol/L (3.5-5.1) Chloride Level 101mmol/L (98-107) Carbon Dioxide Level 26mmol/L (21-32) Anion Gap 7 (6-14) Blood Urea Nitrogen 15mg/dL (7-20) Creatinine 0.8mg/dL (0.6-1.0) Estimated GFR (Cockcroft-Gault) 67.8 Glucose Level 107mg/dL (70-99) Calcium Level 8.7mg/dL (8.5-10.1) Magnesium Level 2.2mg/dL (1.8-2.4) Total Bilirubin 1.1mg/dL (0.2-1.0) Direct Bilirubin 0.3mg/dL (0.0-0.2) Aspartate Amino Transf (AST/SGOT) 33U/L (15-37) Alanine Aminotransferase (ALT/SGPT) 33U/L (14-59) Alkaline Phosphatase 60U/L (46-116) Creatine Kinase 34U/L (26-192) Creatine Kinase MB (Mass) 0.6ng/mL (0.0-3.6) Creatine Kinase MB Relative Index 1.8% (0-4) Troponin I Quantitative < 0.017ng/mL (0.000-0.055) NB-Ymd-Y-Type Natriuretic Peptide 5570pg/mL (0-449) Total Protein 6.3g/dL (6.4-8.2) Albumin 3.5g/dL (3.4-5.0) Thyroid Stimulating Hormone (TSH) 2.677uIU/mL (0.358-3.74) Urine Collection Type U cath Urine Color Yellow Urine Clarity Clear Urine pH 7.5 Urine Specific [place] 1.015 Urine Protein 30mg/dL (NEG-TRACE) Urine Glucose (UA) Negativemg/dL (NEG) Urine Ketones (Stick) Negativemg/dL (NEG) Urine Blood Negative (NEG) Urine Nitrite Negative (NEG) Urine Bilirubin Negative (NEG) Urine Urobilinogen Dipstick 1.0mg/dL (0.2 mg/dL) Urine Leukocyte Esterase Negative (NEG) Urine RBC 0/HPF (0-2) Urine WBC 1-4/HPF (0-4) Urine Squamous Epithelial Cells Occ/LPF Urine Transitional Epithelial Cells Few/LPF Urine Bacteria 0/HPF (0-FEW) Urine Mucus Slight/LPF Laboratory Tests Test 05/18/16 09:05 05/18/16 11:00 White Blood Count 6.7x10^3/uL (4.0-11.0) Red Blood Count 3.15x10^6/uL (3.50-5.40) Hemoglobin 10.0g/dL (12.0-15.5) Hematocrit 29.8% (36.0-47.0) Mean Corpuscular Volume 95fL (79-100) Mean Corpuscular Hemoglobin 32pg (25-35) Mean Corpuscular Hemoglobin Concent 34g/dL (31-37) Red Cell Distribution Width 15.0% (11.5-14.5) Platelet Count 220x10^3/uL (140-400) Neutrophils (%) (Auto) 82% (31-73) Lymphocytes (%) (Auto) 10% (24-48) Monocytes (%) (Auto) 6% (0-9) Eosinophils (%) (Auto) 2% (0-3) Basophils (%) (Auto) 1% (0-3) Neutrophils # (Auto) 5.5x10^3uL (1.8-7.7) Lymphocytes # (Auto) 0.7x10^3/uL (1.0-4.8) Monocytes # (Auto) 0.4x10^3/uL (0.0-1.1) Eosinophils # (Auto) 0.1x10^3/uL (0.0-0.7) Basophils # (Auto) 0.0x10^3/uL (0.0-0.2) Prothrombin Time 14.4SEC (11.7-14.0) Prothromb Time International Ratio 1.2 (0.8-1.1) Sodium Level 134mmol/L (136-145) Potassium Level 4.6mmol/L (3.5-5.1) Chloride Level 101mmol/L (98-107) Carbon Dioxide Level 26mmol/L (21-32) Anion Gap 7 (6-14) Blood Urea Nitrogen 15mg/dL (7-20) Creatinine 0.8mg/dL (0.6-1.0) Estimated GFR (Cockcroft-Gault) 67.8 Glucose Level 107mg/dL (70-99) Calcium Level 8.7mg/dL (8.5-10.1) Magnesium Level 2.2mg/dL (1.8-2.4) Total Bilirubin 1.1mg/dL (0.2-1.0) Direct Bilirubin 0.3mg/dL (0.0-0.2) Aspartate Amino Transf (AST/SGOT) 33U/L (15-37) Alanine Aminotransferase (ALT/SGPT) 33U/L (14-59) Alkaline Phosphatase 60U/L (46-116) Creatine Kinase 34U/L (26-192) Creatine Kinase MB (Mass) 0.6ng/mL (0.0-3.6) Creatine Kinase MB Relative Index 1.8% (0-4) Troponin I Quantitative < 0.017ng/mL (0.000-0.055) NL-Bvh-U-Type Natriuretic Peptide 5570pg/mL (0-449) Total Protein 6.3g/dL (6.4-8.2) Albumin 3.5g/dL (3.4-5.0) Thyroid Stimulating Hormone (TSH) 2.677uIU/mL (0.358-3.74) Urine Collection Type U cath Urine Color Yellow Urine Clarity Clear Urine pH 7.5 Urine Specific [place] 1.015 Urine Protein 30mg/dL (NEG-TRACE) Urine Glucose (UA) Negativemg/dL (NEG) Urine Ketones (Stick) Negativemg/dL (NEG) Urine Blood Negative (NEG) Urine Nitrite Negative (NEG) Urine Bilirubin Negative (NEG) Urine Urobilinogen Dipstick 1.0mg/dL (0.2 mg/dL) Urine Leukocyte Esterase Negative (NEG) Urine RBC 0/HPF (0-2) Urine WBC 1-4/HPF (0-4) Urine Squamous Epithelial Cells Occ/LPF Urine Transitional Epithelial Cells Few/LPF Urine Bacteria 0/HPF (0-FEW) Urine Mucus Slight/LPF HUGH OVALLES MD May 18, 2016 18:35
[2016-05-18 19:00] VITALS: BP 138/68
[2016-05-18] MEDS: HYDRALAZINE 50 MG TABLET PO SCH (20:44)
[2016-05-18] MEDS ORDERED: SIMVASTATIN 20 MG TABLET PO SCH (21:00)
[2016-05-18 23:30] VITALS: BP 143/66
[2016-05-19 02:53] VITALS: BP 142/73
[2016-05-19 06:06] LABS: BASO # 0.1 x10^3/uL (0.0-0.2); BASO % 1 % (0-3); EOS % 1 % (0-3); HEMATOCRIT 32.2 % (36.0-47.0); HEMOGLOBIN 10.8 g/dL (12.0-15.5); LYMPH # 0.9 x10^3/uL (1.0-4.8); LYMPH % 12 % (24-48); MEAN CORPUSCULAR HEMOGLOBIN 32 pg (25-35); MEAN CORPUSCULAR HGB CONC 34 g/dL (31-37); MEAN CORPUSCULAR VOLUME 94 fL (79-100); MONO % 7 % (0-9); NEUT % 81 % (31-73); PLATELET COUNT 252 x10^3/uL (140-400); RED BLOOD COUNT 3.43 x10^6/uL (3.50-5.40); WHITE BLOOD COUNT 8.1 x10^3/uL (4.0-11.0)
[2016-05-19] MEDS ORDERED: ACETAMINOPHEN 500 MG TABLET PO PRN (06:30)
[2016-05-19 06:43] LABS: ALBUMIN 3.4 g/dL (3.4-5.0); ALBUMIN/GLOBULIN RATIO 1.1 (1.0-1.7); CALCIUM 8.9 mg/dL (8.5-10.1); CREATININE 0.8 mg/dL (0.6-1.0); GFR 67.8; POTASSIUM 4.6 mmol/L (3.5-5.1); TOTAL BILIRUBIN 1.6 mg/dL (0.2-1.0); TOTAL PROTEIN 6.6 g/dL (6.4-8.2)
[2016-05-19 06:51] LABS: CHOLESTEROL/HDL RATIO 2.6
[2016-05-19 07:18] VITALS: BP 148/72
[2016-05-19] MEDS ORDERED: ASPIRIN ENTERIC COATED 325 MG TABLET.DR. PO SCH (08:00)
[2016-05-19] MEDS: FUROSEMIDE 20 MG TABLET PO SCH (08:04)
[2016-05-19] MEDS: HYDRALAZINE 50 MG TABLET PO SCH ×2 (08:04→14:41)
[2016-05-19] MEDS: LEVOTHYROXINE 125 MCG TABLET PO SCH (08:04)
[2016-05-19] MEDS: CARVEDILOL 12.5 MG TABLET. PO SCH (08:04)
[2016-05-19] MEDS: POTASSIUM CHLORIDE 20 MEQ TABLET.ER. PO SCH (08:05)
[2016-05-19] MEDS: LISINOPRIL 20 MG TABLET PO SCH (08:05)
--- NOTE | 2016-05-19 09:43 | RAD ---
CT scan of the head without contrast 05/19/2016 Clinical History: Dizziness.. Technique: Unenhanced, contiguous, 5 mm axial sections were obtained through the head. One or more of the following individualized dose reduction techniques were utilized for this study: 1. Automated exposure control. 2. Adjustment of the mA and/or kV according to patient size. 3. Use of iterative reconstruction technique. Findings: Comparison study dated 05/18/2016. There is generalized parenchymal atrophy. Small scattered areas of decreased attenuation are seen within the periventricular and subcortical white matter of both cerebral hemispheres consistent with areas of small vessel ischemic disease. No acute parenchymal abnormality is seen. No extra-axial fluid collection is noted. No skull fracture is seen. Since the previous examination there has been no significant interval change. Impression: No acute intracranial abnormality is seen.
--- NOTE | 2016-05-19 10:29 | PDOC ---
Provider Note Provider Note Pt seen.H&P dictated. #[id number] KIERSTEN BALL MD May 19, 2016 10:29
[2016-05-19 10:33] VITALS: BP 125/58
--- NOTE | 2016-05-19 10:43 | PDOC ---
PROGRESS NOTES Assessment Assessment Questionable acute/subacute left parietal centrum semiovale infarct on HCT of , but negative on HCT of 05/19. Dizziness for 2 weeks, multifactorial. CHF, worse. HTN HLD Hypothyroidism Drinking, longstanding RECOMMENDATIONS/PLAN: Continue ASA to 325 mg daily. Continue Zocor HS. No MRI due to pacemaker. Echo pending. OT/PT FU with PCP. Discussed with her daughters at bedside on 05/19. Carotid A US + Doppler: No high grade stenosis. Fasting lipid penal: In normal range. 2 HCTs: see above. HISTORY OF THE PRESENT ILLNESS: 85-y-old [place] origin female patient with above medical disease has been having symptoms of persistent dizziness for about 2 weeks. She stated her dizziness is worse at lying position, but better at sitting position that may has effects of CHF. She was treated with Meclizine and she said it help her dizziness in short period of time but caused her confusion per her daughter. No tinnitus. No focalized sensory or motor deficits noted. She has some nausea but no projectile vomiting. She stated her symptoms of dizziness is significantly improved on 05/19. PAST MEDICAL HISTORY: Please see above. PAST SURGERY HISTORY: Pacemaker Placement ALLERGY: Reviewed. MEDICATIONS: Refer to [facility] FAMILY HISTORY: Non contributory. SOCIAL HISTORY: Lives with her family. Denies smoking and illicit drug use. She drinks 1-2 beers 2 or more times a week for 66 years. REVIEW OF SYSTEMS: Constitutional: No malnutrition, weight loss, cachexia. Head: No recent traumatic brain or head injury. Skin: No edema, or rash. Ear: No infection, tinnitus. Eyes: No vision loss or color blindness. Nose: No bleeding or purulent discharges. Hearing: Mild hearing decrease. Neck: No injury. Breast: No history of cancer, masses,or discharges. Cardiac: CHF, Pacemaker Placement, HTN, HLD. Pulmonary: No COPD. GI: Hiatal hernia.. Urinary/genital: UTI. Endocrinologic: Hypothyroidism. Skeletomuscular: Generalized weakness. Neurological: see HP. Psychiatric: Denies drug use/abuse. Otherwise, not [id number] review of systems. PHYSICAL EXAMINATION: General appearance is in subacute distress. HEENT: Normocephalic and nontraumatic. Eyes, nose, ears, and throat are unremarkable. Neck is supple. No lymphadenopathy. No bruits are heard over the carotid artery. No crepitus. Cardiovascular: S1, S2, regular rate and rhythm. Pulmonary: Clear to auscultation bilaterally. Abdomen: Bowel sounds are positive. Extremities: No rash, lesions, or edema. No restriction of range of motion NEUROLOGICAL EXAMINATION: awake. Oriented to place and person and partially to time. PERRL. EOMI. No obvious nystagmus noted. CN: no focal findings. Muscle tone: within normal. Muscle strength: 5- DTR: 2- Plantar reflex: Flexor response bilaterally Gait: not examined in bed. Sensory exam: no abnormal findings. No obvious cerebellar signs elicited. F-T-N test fine bilaterally. Objective Objective Vital Signs Date Time Temp Pulse Resp B/P Pulse Ox O2 Delivery O2 Flow Rate FiO2 05/19/16 10:33 97.4 69 18 125/58 96 Room Air 97.4 Intake and Output 05/19/16 07:00 Intake Total 400 ml Output Total 325 ml Balance 75 ml Intake Oral 400 ml Output Urine Total 325 ml Vitals Signs Vitals VS - Last 72 Hours, by Label Date Time Temp Pulse Resp B/P Pulse Ox O2 Delivery O2 Flow Rate FiO2 05/19/16 10:33 97.4 69 18 125/58 96 Room Air 97.4 05/19/16 08:05 78 148/72 05/19/16 08:04 78 148/72 05/19/16 08:04 78 148/72 05/19/16 07:18 98.1 78 18 148/72 97 Room Air 98.1 05/19/16 02:53 97.1 88 17 142/73 95 Room Air 97.1 05/18/16 23:30 97.7 79 18 143/66 93 Room Air 97.7 05/18/16 20:44 85 149/78 05/18/16 20:00 Room Air 05/18/16 19:00 96.1 80 17 138/68 96 Room Air 96.1 05/18/16 16:05 88 147/81 05/18/16 16:05 88 147/81 05/18/16 15:00 96.7 88 20 150/82 91 Room Air 96.7 05/18/16 13:30 96.6 77 18 156/81 97 Room Air 96.6 05/18/16 13:30 Room Air 05/18/16 13:30 96.6 77 18 156/81 97 Room Air 96.6 05/18/16 11:40 72 16 150/75 100 Room Air 05/18/16 10:40 70 16 148/70 100 Room Air 05/18/16 09:40 72 16 152/70 100 Room Air 05/18/16 08:40 98.4 72 18 149/69 96 Room Air 98.4 Laboratory Laboratory Laboratory Tests Test 05/18/16 11:00 05/18/16 20:52 05/19/16 05:35 Urine Collection Type U cath Urine Color Yellow Urine Clarity Clear Urine pH 7.5 Urine Specific [place] 1.015 Urine Protein 30mg/dL (NEG-TRACE) Urine Glucose (UA) Negativemg/dL (NEG) Urine Ketones (Stick) Negativemg/dL (NEG) Urine Blood Negative (NEG) Urine Nitrite Negative (NEG) Urine Bilirubin Negative (NEG) Urine Urobilinogen Dipstick 1.0mg/dL (0.2 mg/dL) Urine Leukocyte Esterase Negative (NEG) Urine RBC 0/HPF (0-2) Urine WBC 1-4/HPF (0-4) Urine Squamous Epithelial Cells Occ/LPF Urine Transitional Epithelial Cells Few/LPF Urine Bacteria 0/HPF (0-FEW) Urine Mucus Slight/LPF Glucose (Fingerstick) 159mg/dL (70-99) White Blood Count 8.1x10^3/uL (4.0-11.0) Red Blood Count 3.43x10^6/uL (3.50-5.40) Hemoglobin 10.8g/dL (12.0-15.5) Hematocrit 32.2% (36.0-47.0) Mean Corpuscular Volume 94fL (79-100) Mean Corpuscular Hemoglobin 32pg (25-35) Mean Corpuscular Hemoglobin Concent 34g/dL (31-37) Red Cell Distribution Width 15.0% (11.5-14.5) Platelet Count 252x10^3/uL (140-400) Neutrophils (%) (Auto) 81% (31-73) Lymphocytes (%) (Auto) 12% (24-48) Monocytes (%) (Auto) 7% (0-9) Eosinophils (%) (Auto) 1% (0-3) Basophils (%) (Auto) 1% (0-3) Neutrophils # (Auto) 6.5x10^3uL (1.8-7.7) Lymphocytes # (Auto) 0.9x10^3/uL (1.0-4.8) Monocytes # (Auto) 0.5x10^3/uL (0.0-1.1) Eosinophils # (Auto) 0.0x10^3/uL (0.0-0.7) Basophils # (Auto) 0.1x10^3/uL (0.0-0.2) Sodium Level 133mmol/L (136-145) Potassium Level 4.6mmol/L (3.5-5.1) Chloride Level 99mmol/L (98-107) Carbon Dioxide Level 21mmol/L (21-32) Anion Gap 13 (6-14) Blood Urea Nitrogen 20mg/dL (7-20) Creatinine 0.8mg/dL (0.6-1.0) Estimated GFR (Cockcroft-Gault) 67.8 BUN/Creatinine Ratio 25 (6-20) Glucose Level 101mg/dL (70-99) Calcium Level 8.9mg/dL (8.5-10.1) Total Bilirubin 1.6mg/dL (0.2-1.0) Aspartate Amino Transf (AST/SGOT) 37U/L (15-37) Alanine Aminotransferase (ALT/SGPT) 39U/L (14-59) Alkaline Phosphatase 65U/L (46-116) Total Protein 6.6g/dL (6.4-8.2) Albumin 3.4g/dL (3.4-5.0) Albumin/Globulin Ratio 1.1 (1.0-1.7) Triglycerides Level 58mg/dL (0-150) Cholesterol Level 112mg/dL (0-200) LDL Cholesterol, Calculated 57mg/dL (0-100) VLDL Cholesterol, Calculated 12mg/dL (0-40) HDL Cholesterol 43mg/dL (40-60) Cholesterol/HDL Ratio 2.6 Medication Medications Current Medications Acetaminophen (Tylenol) 500 mg PRN Q6HRS PRN PO MILD PAIN / TEMP Last administered on 05/19/16 06:33; Start 05/19/16 at 06:30 Aspirin (Yana Aspirin) 325 mg 1X ONCE PO Last administered on 05/18/16 11:15 ; Start 05/18/16 at 11:15; Stop 05/18/16 at 11:19; Status DC Aspirin (Children'S Aspirin) 81 mg DAILY PO Last administered on 05/18/16 16: 04; Start 05/18/16 at 17:00; Stop 05/18/16 at 17:00; Status DC Aspirin (Ecotrin) 325 mg DAILYWBKFT PO Last administered on 05/19/16 08:04; Start 05/19/16 at 08:00 Carvedilol (Coreg) 25 mg BIDWMEALS PO Last administered on 05/19/16 08:04; Start 05/18/16 at 17:00 Furosemide (Lasix) 20 mg DAILY PO Last administered on 05/19/16 08:04; Start 05/18/16 at 16:00 Hydralazine HCl (Apresoline) 50 mg TID PO Last administered on 05/19/16 08:04 ; Start 05/18/16 at 21:00 Levothyroxine Sodium (Synthroid) 125 mcg DAILY07 PO Last administered on 08:04; Start 05/18/16 at 17:00 Lisinopril (Prinivil) 20 mg DAILY PO Last administered on 05/19/16 08:05; Start 05/18/16 at 17:00 Ondansetron HCl (Zofran) 4 mg PRN Q6HRS PRN IV NAUSEA/VOMITING Last administered on 05/18/16 16:37; Start 05/18/16 at 16:30 Potassium Chloride (Klor-Con) 20 meq BIDWMEALS PO Last administered on 08:05; Start 05/18/16 at 17:00 Simvastatin (Zocor) 20 mg QHS PO Last administered on 05/18/16 20:43; Start at 21:00 Comment Review of Relevant I have reviewed the following items bonny (where applicable) has been applied. HUGH OVALLES MD May 19, 2016 10:43
--- NOTE | 2016-05-19 12:48 | HP ---
ADMIT DATE: 05/18/2016 LOCATION: [facility]. REASON FOR ADMISSION TO THE HOSPITAL: Dizziness, possible stroke on the CT scan. HISTORY OF PRESENT ILLNESS: The patient is an 85-year-old female, patient of Dr. Gabriel. She has a history of congestive heart failure, chronic systolic heart failure, ejection fraction 20%, pacemaker, hypertension, hypothyroidism, hyperlipidemia. She was having dizziness for the last 2 days, getting progressively worse, came to the Emergency Room. She had a CT head, which shows questionable CVA, was admitted to the hospital, seen by Neurology. The patient has a pacemaker, could not get an MRI. Carotid Doppler, echo was ordered. PAST MEDICAL HISTORY: As mentioned above, has a history of sick sinus syndrome, bradycardia, has a pacemaker, congestive heart failure, ejection fraction 20%, hypertension, hyperlipidemia, hypothyroidism, and chronic systolic heart failure. PAST SURGICAL HISTORY: As mentioned above, has a pacemaker. ALLERGIES: No known allergies. MEDICATIONS AT HOME: Aspirin 81 mg daily, Coreg 25 mg daily, Lasix 20 mg daily, hydralazine 50 mg 3 times a day, [id number] mcg daily, lisinopril 20 mg daily, potassium 10 mEq daily, simvastatin 20 mg daily. PERSONAL HISTORY: No history of smoking, alcohol or drug abuse. FAMILY HISTORY: Positive for hypertension, heart disease. REVIEW OF SYMPTOMS: CARDIAC: No chest pain. LUNGS: No cough, sputum. GASTROINTESTINAL: No nausea or vomiting. NEUROLOGICAL: Has some dizziness. No focal deficits. PHYSICAL EXAMINATION: GENERAL: Pleasant, not in any distress. VITAL SIGNS: Temperature 98, pulse 72, respirations 18, blood pressure 149/69, 92% on room air. HEENT: Head is atraumatic. Pupils equal. Oral cavity, no congestion. NECK: Supple. Thyroid not enlarged. JVD not elevated. CHEST: Symmetrical. CARDIOVASCULAR: S1, S2, pacemaker, left side chest. LUNGS: Clear to auscultation. ABDOMEN: Soft. No mass palpable. EXTREMITIES: No calf tenderness, no edema. NEUROLOGIC: Cranial nerves intact. Power 5/5. Moves all extremities. LABORATORY DATA: White count 6, hemoglobin 10, platelets are 220. Electrolytes show sodium 134, potassium 4.6, chloride 101, bicarbonate 26, BUN 15, creatinine 0.8, glucose 107. LFTs were normal. INR 1.2. Urine was negative. Chest x-ray: CHF. CT head shows decreased attenuation and no acute abnormality detected and carotid doppler negative. FINAL IMPRESSION: 1. Dizziness. 2. Questionable stroke on the CT scan, but repeat CT scan was ordered. The report is pending at this point. 3. Chronic systolic heart failure. 4. Pacemaker. 5. Hypothyroidism. 6. Hyperlipidemia. PLAN: At this time, we will have a Neurology followup, Cardiology see echocardiogram. Hopefully, she could probably go home this evening or tomorrow. KIERSTEN BALL MD DR: KARY/chel JOB#: [id number] / [id number] ANJEL Laird
[2016-05-19 14:34] VITALS: BP 124/58
[2016-05-19 14:41] VITALS: BP 124/58
[2016-05-19] MEDS ORDERED: ASPI325T11 PO (14:50)
[2016-05-19] MEDS ORDERED: DIAZ2TAB PO (14:50)
--- NOTE | 2016-05-19 16:30 | CARD ---
APPROVED REPORT EXAM: Two-dimensional and M-mode echocardiogram with Doppler and color Doppler. Other Information Quality : GoodHR: 74bpm Rhythm : Pacemaker INDICATION CVA/TIA Dizziness and Vertigo Dyspnea Fatigue Mitral Valve Disease Congestive Heart Failure 2D DIMENSIONS RVDd3.5 (2.9-3.5cm)Left Atrium(2D)4.4 (1.6-4.0cm) IVSd1.0 (0.7-1.1cm)Aortic Root(2D)2.6 (2.0-3.7cm) LVDd6.3 (3.9-5.9cm)LVOT Diameter2.0 (1.8-2.4cm) PWd1.1 (0.7-1.1cm)LVDs5.6 (2.5-4.0cm) FS (%) 10.2 %SV43.8 ml LVEF(%)21.0 (>50%) Aortic Valve AoV Peak Tobi.149.1cm/sAoV VTI30.9cm AO Peak GR.8.9mmHgLVOT Peak Tobi.100.1cm/s LVOT VTI 23.95cmAO Mean GR.4mmHg FADI (VMAX)2.49ay9EWF (VTI)2.49cm2 AI P 1/2 Qbtf351dw Mitral Valve MV E Wsptrejp717.7cm/sMV E Peak Gr.72mmHg MV DECEL [id number] A Aobrkaph78.7cm/s MV E Mean Gr.3mmHgMV QRD61uv E/A Ratio1.2MV A Tsyznhdc666ux MVA (PHT)4.63cm2 Pulmonary Valve PV Peak Dglodlsh436.2cm/sPV Peak Grad.4mmHg RVOT VTI19.5cm Tricuspid Valve TR P. Lwatkiwi844te/sRAP ZYFFGSLU5ziGu TR Peak Gr.33baJvWALT73ysFk Pulmonary Vein S1 Vopzbltt10.8cm/sD2 Ghibpjdw46.8cm/s PVa [id number] LEFT VENTRICLE The Left Ventricle is dilated. There is normal left ventricular wall thickness. Left ventricle systol ic function is severely impaired. The Ejection Fraction is 21%. There is global hypokinesis of the le ft ventricle. Tissue Doppler imaging reveals severe left ventricular diastolic dysfunction. Transmitr al Doppler flow pattern is Grade IV-fixed restrictive diastolic dysfunction. There is no ventricular septal defect visualized. RIGHT VENTRICLE The right ventricle is normal size. The right ventricular systolic function is normal. There is a pac emaker lead seen in the RV/RA. ATRIA The left atrium is mildly dilated. Right atrium appears dilated. The interatrial septum was poorly vi sualized, cannot rule out the possibility of an atrail septal defect AORTIC VALVE The aortic valve is mildly calcified but opens well. The aortic valve is trileaflet. Doppler and [place] r Flow revealed mild to moderate aortic regurgitation. There is no significant aortic valvular stenos is. MITRAL VALVE Mitral annular calcification is mild to moderate. The mitral valve leaflets are calcified but opens w ell. There is no evidence of mitral valve prolapse. There is no mitral valve stenosis. Doppler and Co shayy Flow revealed moderate mitral regurgitation. TRICUSPID VALVE The tricuspid valve is normal in structure. Doppler and Color Flow revealed moderate tricuspid regurg itation. There is moderate to severe pulmonary hypertension. The PA pressure was estimated at 62 mmHg . There is no tricuspid valve stenosis. PULMONIC VALVE The pulmonary valve is normal in structure. Doppler and Color Flow revealed mild pulmonic valvular re gurgitation. There is no pulmonic valvular stenosis. GREAT VESSELS The aortic root is normal in size. The ascending aorta is normal in size. Normal pulmonary venous javed w (Doppler). The IVC is dilated and collapses >50% with inspiration. PERICARDIAL EFFUSION Ascites present in subcostal image. There is no evidence of significant pericardial effusion. Critical Notification Critical Value: No <Conclusion> Left ventricle systolic function is severely impaired. The Ejection Fraction is 21%. The Left Ventricle is dilated. There is global hypokinesis of the left ventricle. Tissue Doppler imaging reveals severe left ventricular diastolic dysfunction. Transmitral Doppler flow pattern is Grade IV-fixed restrictive diastolic dysfunction. The left atrium is mildly dilated. Right atrium appears dilated. The interatrial septum was poorly visualized, cannot rule out the possibility of an atrail septal def ect The aortic valve is mildly calcified but opens well. The aortic valve is trileaflet. Doppler and Color Flow revealed mild to moderate aortic regurgitation. Mitral annular calcification is mild to moderate. The mitral valve leaflets are calcified but opens well. Doppler and Color Flow revealed moderate mitral regurgitation. Doppler and Color Flow revealed moderate tricuspid regurgitation. There is moderate to severe pulmonary hypertension. The PA pressure was estimated at 62 mmHg. The pulmonary valve is normal in structure. Doppler and Color Flow revealed mild pulmonic valvular regurgitation. Ascites present in subcostal image. There is no evidence of significant pericardial effusion.
--- NOTE | 2016-05-22 14:46 | PDOC ---
Provider Note Provider Note Discharge summary dictated KIERSTEN BALL MD May 22, 2016 14:45
--- NOTE | 2016-05-22 18:15 | HP ---
ADMIT DATE: 05/19/2016 REASON FOR ADMISSION TO THE HOSPITAL: Dizziness, possible CVA. CONSULTATION: Dr. Apodaca, Dr. Conklin. PROCEDURES DONE: 1. CT head x2. 2. Echocardiogram. 3. Carotid Doppler. HOSPITAL COURSE: The patient is an 85-year-old female with history of chronic systolic heart failure, 20% ejection fraction, has a pacemaker who came with dizziness and lightheaded. Initial CT scan showed what could be a small infarct at the left parietal centrum semiovale, but repeat CT scan did not show any stroke. Carotid Doppler was negative. Echocardiogram with 20% ejection fraction and chronic systolic heart failure. No thrombus. The patient was discharged on low-dose Valium. The patient says that she did not do well with Antivert. FINAL DIAGNOSES: 1. Dizziness probably secondary to inner ear vestibular problem. 2. Chronic systolic heart failure with 20% ejection fraction. 3. Hypertension. 4. Hypothyroidism and no evidence of cerebrovascular accident at this point. KIERSTEN BALL MD DR: KARY/chel JOB#: [id number] / [id number] pooja Gabriel Dr.
== END 2016-05-19 16:48 | disposition home or self-care (01) ==
LOC: ER 08:18 → 6 SOUTH 10:58 → INTOOBSV 10:58
PROVIDERS: ADMIT Internal Medicine; ATTEND Internal Medicine
DX: R42 Dizziness and giddiness (principal); I11.0 Hypertensive heart disease with heart failure; I50.22 Chronic systolic (congestive) heart failure; E03.9 Hypothyroidism, unspecified; E78.5 Hyperlipidemia, unspecified; E78.00 Pure hypercholesterolemia, unspecified; Z95.0 Presence of cardiac pacemaker; Z82.49 Family history of ischemic heart disease and other diseases of the circulatory system
CPT/HCPCS: 36415; 70450; 71010; 80048; 80053; 80061; 80076; 81001; 82553; 82607; 82947; 83735; 83880; 84443; 84484; 85027; 85610; 93005; 93306; 93880; 96374; 96375; 97162; 97165; 99285; G0378; J2405; J3360; G0379

== ENCOUNTER 2016-06-11 08:05 | Inpatient (IN) | payer MEDICARE ==
[2016-06-11] VITALS (7 sets, daily range): BP systolic 99–146; BP diastolic 43–75
[~2016-06-11] VITALS: Ht 154.9 cm; Wt 60.4 kg
[~2016-06-11 08:05] MED LIST changes: +ASPI325T11 PO; +DIAZ2TAB PO; +FURO-69 PO; +POTA10TA12 PO
--- NOTE | 2016-06-11 08:45 | PHYS DOC ---
Past Medical History Past Medical History: CHF, High Cholesterol, Hypertension, Hypothyroid Additional Past Medical Histor: hiatal hernia Past Surgical History: Pacemaker Alcohol Use: Occasionally Drug Use: None Adult General Chief Complaint Chief Complaint: DIZZY/LIGHT HEADED HPI HPI Patient is a 85 year old female who presents with headache, dizziness and chest pain. She states the chest pain started last night as a pressure sensation in his in her chest doesn't radiate. She does feel somewhat nauseated at times however currently she is not having any nausea or shortness of breath. She states she's never had chest pain before. She also is complaining about a headache that's generalized in nature. She also states she feels dizzy like the room spinning around and around. She states she's had a history of this before and was on meclizine however in May when she was diagnosed with her stroke they took her off a meclizine. She states it makes it difficult for her to ambulate. She denies any focal neurological deficits, weakness in her arms or legs. She denies any fevers or chills. Review of Systems Review of Systems Constitutional: Denies fever or chills [] Eyes: Denies change in visual acuity, redness, or eye pain [] HENT: Denies nasal congestion or sore throat [] Respiratory: Denies cough or shortness of breath [] Cardiovascular: No additional information not addressed in HPI [] GI: Denies abdominal pain, nausea, vomiting, bloody stools or diarrhea [] : Denies dysuria or hematuria [] Musculoskeletal: Denies back pain or joint pain [] Integument: Denies rash or skin lesions [] Neurologic: Denies focal weakness or sensory changes on a positive for headache ,[] Endocrine: Denies polyuria or polydipsia [] Current Medications Current Medications Current Medications Medications (Trade) Dose Ordered Sig/Kenneth Start Time Stop Time Status Last Admin Dose Admin Ondansetron HCl (Zofran) 4 mg PRN Q8HRS PRN 06/11/16 10:15 06/12/16 10:14 UNV Allergies Allergies Allergies Coded Allergies Type Severity Reaction Last Updated Verified No Known Drug Allergies 11/24/13 No Physical Exam Physical Exam Constitutional: Well developed, well nourished, no acute distress, non-toxic appearance. [] HENT: Normocephalic, atraumatic, bilateral external ears normal, oropharynx moist, no oral exudates, nose normal. [] Eyes: PERRLA, EOMI, conjunctiva normal, no discharge. [] Neck: Normal range of motion, no tenderness, supple, no stridor. [] Cardiovascular:Heart rate regular rhythm, no murmur [] Lungs & Thorax: Bilateral breath sounds clear to auscultation [] Abdomen: Bowel sounds normal, soft, no tenderness, no masses, no pulsatile masses. [] Skin: Warm, dry, no erythema, no rash. [] Back: No tenderness, no CVA tenderness. [] Extremities: No tenderness, no cyanosis, no clubbing, ROM intact, no edema. [] Neurologic: Alert and oriented X 3, normal motor function, normal sensory function, no focal deficits noted. [] Psychologic: Affect normal, judgement normal, mood normal. [] Current Patient Data Vital Signs Vital Signs Date Time Temp Pulse Resp B/P (MAP) Pulse Ox O2 Delivery O2 Flow Rate FiO2 06/11/16 08:55 97.9 79 22 130/67 (88) 98 Room Air 97.9 Lab Values Laboratory Tests Test 06/11/16 08:55 06/11/16 09:30 White Blood Count 6.2 x10^3/uL (4.0-11.0) Red Blood Count 3.16 x10^6/uL (3.50-5.40) L Hemoglobin 10.2 g/dL (12.0-15.5) L Hematocrit 29.4 % (36.0-47.0) L Mean Corpuscular Volume 93 fL (79-100) Mean Corpuscular Hemoglobin 32 pg (25-35) Mean Corpuscular Hemoglobin Concent 35 g/dL (31-37) Red Cell Distribution Width 14.8 % (11.5-14.5) H Platelet Count 235 x10^3/uL (140-400) Neutrophils (%) (Auto) 78 % (31-73) H Lymphocytes (%) (Auto) 12 % (24-48) L Monocytes (%) (Auto) 8 % (0-9) Eosinophils (%) (Auto) 2 % (0-3) Basophils (%) (Auto) 1 % (0-3) Neutrophils # (Auto) 4.8 x10^3uL (1.8-7.7) Lymphocytes # (Auto) 0.7 x10^3/uL (1.0-4.8) L Monocytes # (Auto) 0.5 x10^3/uL (0.0-1.1) Eosinophils # (Auto) 0.1 x10^3/uL (0.0-0.7) Basophils # (Auto) 0.0 x10^3/uL (0.0-0.2) Prothrombin Time 14.7 SEC (11.7-14.0) H Prothrombin Time INR 1.2 (0.8-1.1) H Sodium Level 133 mmol/L (136-145) L Potassium Level 3.8 mmol/L (3.5-5.1) Chloride Level 101 mmol/L (98-107) Carbon Dioxide Level 23 mmol/L (21-32) Anion Gap 9 (6-14) Blood Urea Nitrogen 16 mg/dL (7-20) Creatinine 0.9 mg/dL (0.6-1.0) Estimated GFR (Cockcroft-Gault) 59.2 Glucose Level 109 mg/dL (70-99) H Calcium Level 8.7 mg/dL (8.5-10.1) Magnesium Level 1.9 mg/dL (1.8-2.4) Total Bilirubin 1.5 mg/dL (0.2-1.0) H Direct Bilirubin 0.4 mg/dL (0.0-0.2) H Aspartate Amino Transferase (AST) 21 U/L (15-37) Alanine Aminotransferase (ALT) 20 U/L (14-59) Alkaline Phosphatase 54 U/L (46-116) Creatine Kinase 29 U/L (26-192) Creatine Kinase MB (Mass) < 0.5 ng/mL (0.0-3.6) Creatine Kinase MB Relative Index % (0-4) Troponin I Quantitative < 0.017 ng/mL (0.000-0.055) SH-Els-N-Type Natriuretic Peptide 9243 pg/mL (0-449) H Total Protein 6.6 g/dL (6.4-8.2) Albumin 3.3 g/dL (3.4-5.0) L Lipase 303 U/L (73-393) Thyroid Stimulating Hormone (TSH) 1.077 uIU/mL (0.358-3.74) Urine Collection Type Unknown Urine Color Yellow Urine Clarity Clear Urine pH 6.0 Urine Specific [place] 1.010 Urine Protein Negative mg/dL (NEG-TRACE) Urine Glucose (UA) Negative mg/dL (NEG) Urine Ketones (Stick) Negative mg/dL (NEG) Urine Blood Negative (NEG) Urine Nitrite Negative (NEG) Urine Bilirubin Negative (NEG) Urine Urobilinogen Dipstick 1.0 mg/dL (0.2 mg/dL) Urine Leukocyte Esterase Trace (NEG) Urine RBC 0 /HPF (0-2) Urine WBC 0 /HPF (0-4) Urine Squamous Epithelial Cells Few /LPF Urine Bacteria 0 /HPF (0-FEW) Laboratory Tests 06/11/16 08:55 Laboratory Tests 06/11/16 08:55 EKG EKG EKG shows sinus rhythm with a rate of 81 bpm with left axis deviation, with intraventricular block, QTC 508 ms, EKG unchanged from one that was done in May 2016. Radiology/Procedures Radiology/Procedures [facility] [address] [place] [address] IMAGING REPORT Signed PATIENT: MAE QUINONES ACCOUNT: [id number] : 1930 LOCATION: ER AGE: 85 SEX: F EXAM STATUS: REG ER ORD. PHYSICIAN: MINI ST MD REASON: dizziness, headache PROCEDURE: CT HEAD WO CONTRAST Indication dizziness and headache. History of hypertension. Noncontrast images of the head were obtained. Comparison is made to an examination 05/19/2016. The calvarium appears unremarkable. The visualized paranasal sinuses appear normal. There is no subdural or epidural hematoma. There is some underlying atrophy compatible with the patient's age. There is a focal deep white matter lucency, image 19, near the right hemispheric vertex. This appears to be new when compared to the previous exam and may represent a small area of interval bland infarction. The finding is subtle and not certain. There is no mass or midline shift. There is no hemorrhage. IMPRESSION: Possible interval small bland infarct in the right deep white matter. The finding is not certain. There is no evidence of hemorrhage PQRS Compliance Statement: One or more of the following individualized dose reduction techniques were utilized for this examination: 1. Automated exposure control 2. Adjustment of the mA and/or kV according to patient size 3. Use of iterative reconstruction technique DICTATED and SIGNED BY: RONIT VALDES MD DATE: 06/11/16945 CC: ANJEL SHARP; MINI ST MD ~ [facility] [address] [place] [address] IMAGING REPORT Signed PATIENT: MAE QUINONES ACCOUNT: [id number] : 1930 LOCATION: ER AGE: 85 SEX: F EXAM STATUS: REG ER ORD. PHYSICIAN: MINI ST MD REASON: right side chest pain, dizzy and headaches PROCEDURE: PORTABLE CHEST 1V Indication headache and dizziness. Right-sided chest pain. A single view of the chest was obtained. Comparison is made to an examination 05/18/2016. There is generalized cardiomegaly similar to the previous exam. There are changes compatible with congestive heart failure. A focal infiltrate is not seen. There are small pleural effusions. Bipolar cardiac pacing device is noted. IMPRESSION: Cardiomegaly. Moderate changes of congestive heart failure. Small bilateral pleural effusions DICTATED and SIGNED BY: RONIT VALDES MD DATE: 06/11/16910 CC: ANJEL SHARP; MINI ST MD ~ Impressions: Dizziness Likely new CVA Congestive heart failure Dyslipidemia Pacemaker Hypertension Hypothyroidism Course & Med Decision Making Course & Med Decision Making Pertinent Labs and Imaging studies reviewed. (See chart for details) Patient has a new CVA based on CT scan, no hemorrhage appreciated. She does take aspirin daily she has not taken any of her a.m. meds as of yet. She is in stable condition being admitted to Dr. Oleary for her new CVA and for chest discomfort. Interim orders have been written with serial troponins. Patient and her sons agreeable plans in stable condition. Dragon Disclaimer Dragon Disclaimer This electronic medical record was generated, in whole or in part, using a voice recognition dictation system. Departure Departure Impression: Primary Impression: Chest pain Additional Impression: Stroke Disposition: ADMITTED INPATIENT Admitting Physician: Charlene Oleary Condition: STABLE Referrals: ANJEL SHARP (PCP) Problem Qualifiers Primary Impression: Chest pain Chest pain type: unspecified Qualified Codes: R07.9 - Chest pain, unspecified Additional Impression: Stroke CVA mechanism: unspecified Qualified Codes: I63.9 - Cerebral infarction, unspecified MINI ST MD June 11, 2016 08:45
--- NOTE | 2016-06-11 09:18 | RAD ---
Indication headache and dizziness. Right-sided chest pain. A single view of the chest was obtained. Comparison is made to an examination 05/18/2016. There is generalized cardiomegaly similar to the previous exam. There are changes compatible with congestive heart failure. A focal infiltrate is not seen. There are small pleural effusions. Bipolar cardiac pacing device is noted. IMPRESSION: Cardiomegaly. Moderate changes of congestive heart failure. Small bilateral pleural effusions
[2016-06-11 09:21] LABS: BASO % 1 % (0-3); EOS % 2 % (0-3); HEMATOCRIT 29.4 % (36.0-47.0); HEMOGLOBIN 10.2 g/dL (12.0-15.5); LYMPH # 0.7 x10^3/uL (1.0-4.8); LYMPH % 12 % (24-48); MEAN CORPUSCULAR HEMOGLOBIN 32 pg (25-35); MEAN CORPUSCULAR HGB CONC 35 g/dL (31-37); MEAN CORPUSCULAR VOLUME 93 fL (79-100); MONO % 8 % (0-9); NEUT % 78 % (31-73); PLATELET COUNT 235 x10^3/uL (140-400); RED BLOOD COUNT 3.16 x10^6/uL (3.50-5.40); RED CELL DISTRIBUTION WIDTH 14.8 % (11.5-14.5); WHITE BLOOD COUNT 6.2 x10^3/uL (4.0-11.0)
[2016-06-11 09:27] LABS: INR 1.2 (0.8-1.1); PROTHROMBIN TIME PATIENT 14.7 SEC (11.7-14.0)
[2016-06-11 09:28] LABS: CALCIUM 8.7 mg/dL (8.5-10.1); CREATININE 0.9 mg/dL (0.6-1.0); GFR 59.2; POTASSIUM 3.8 mmol/L (3.5-5.1)
[2016-06-11 09:34] LABS: ALBUMIN 3.3 g/dL (3.4-5.0); DIRECT BILIRUBIN 0.4 mg/dL (0.0-0.2); MAGNESIUM 1.9 mg/dL (1.8-2.4); TOTAL BILIRUBIN 1.5 mg/dL (0.2-1.0); TOTAL PROTEIN 6.6 g/dL (6.4-8.2)
[2016-06-11 09:36] LABS: BILIRUBIN,URINE NEGATIVE (NEG); GLUCOSE,URINE NEGATIVE (NEG); NITRITE,URINE NEGATIVE (NEG); PROTEIN,URINE NEGATIVE (NEG-TRACE)
--- NOTE | 2016-06-11 09:38 | EKG ---
[facility] [address] [place] [address] Test Date: 2016-06-11 Test Time: 08:53:52 Pat Name: MAE QUINONES Department: Room: Gender: F Employment Officer: : 1930 Requested By: MINI ST Order Number: [id number] Reading MD: Florence Braswell Measurements Intervals [place] Rate: 81 P: 90 CO: 196 QRS: -37 QRSD: 178 T: 138 QT: 432 QTc: 508 Interpretive Statements SINUS RHYTHM ELECTRONIC PACEMAKER A SENSED AND V PACED ABNORMAL ECG Electronically Signed On 06-12-2016 18:13:16 CDT by Florence Braswell
[2016-06-11 09:45] LABS: CKMB MASS < 0.5 ng/mL (0.0-3.6); CREATINE KINASE 29 U/L (26-192)
[2016-06-11 09:53] LABS: BACTERIA,URINE 0 /HPF (0-FEW); RBC,URINE 0 /HPF (0-2); SQUAMOUS EPITHELIAL CELL,UR FEW /LPF; WBC,URINE 0 /HPF (0-4)
--- NOTE | 2016-06-11 09:54 | RAD ---
Indication dizziness and headache. History of hypertension. Noncontrast images of the head were obtained. Comparison is made to an examination 05/19/2016. The calvarium appears unremarkable. The visualized paranasal sinuses appear normal. There is no subdural or epidural hematoma. There is some underlying atrophy compatible with the patient's age. There is a focal deep white matter lucency, image 19, near the right hemispheric vertex. This appears to be new when compared to the previous exam and may represent a small area of interval bland infarction. The finding is subtle and not certain. There is no mass or midline shift. There is no hemorrhage. IMPRESSION: Possible interval small bland infarct in the right deep white matter. The finding is not certain. There is no evidence of hemorrhage PQRS Compliance Statement: One or more of the following individualized dose reduction techniques were utilized for this examination: 1. Automated exposure control 2. Adjustment of the mA and/or kV according to patient size 3. Use of iterative reconstruction technique
[2016-06-11] MEDS ORDERED: ONDANSETRON PF 4 MG/2 ML VIAL. IV PRN (10:15)
--- NOTE | 2016-06-11 11:46 | PDOC ---
Provider Note Provider Note Pt seen.H&P dictated.. #[id number] KIERSTEN BALL MD June 11, 2016 11:46
--- NOTE | 2016-06-11 12:50 | PDOC2 ---
NEUROLOGY CONSULT Date of Admission Date of Admission DATE: 06/11/16 TIME: 12:33 Reason for Consult Reason for Consult: dizziness Referring Physician Referring Physician: Dr. Oleary Source Source: Caregiver, Chart review, Patient History of Present Illness History of Present Illness The patient is an 85-year-old right-handed female who comes in for dizziness. She describes a lightheaded feeling. We spoke in Nepali. She denies true vertigo. She was here for the same thing a month ago. Serial CT scans and carotid Dopplers were negative. CT head today shows questionable right frontal infarct. She denies tinnitus or hearing loss. It is no prior history of stroke, seizure, or head injury. She has a pacemaker so cannot have an MRI. She generally gets around with a cane Past Medical History Cardiovascular: CHF, HTN, Hyperlipidemia GI: Other (hiatal hernia) Endocrine: Hypothyroidism, Other Past Surgical History Past Surgical History: Pacemaker, Cataract Removal, Hernia Repair (umbilical) Family History Family History: No pertinent hx Social History Social History , occasional beer, recently cut down on that, no tobacco Current Medications Current Medications Current Medications Ondansetron HCl (Zofran) 4 mg PRN Q8HRS PRN IV NAUSEA/VOMITING; Start 06/11/16 at 10:15; Stop 06/12/16 at 10:14 Aspirin (Ecotrin) 325 mg DAILYWBKFT PO ; Start 06/11/16 at 12:30 Diazepam (Valium) 2 mg BID PO ; Start 06/11/16 at 12:30 Furosemide (Lasix) 20 mg DAILY PO ; Start 06/11/16 at 12:30 Hydralazine HCl (Apresoline) 50 mg TID PO ; Start 06/11/16 at 14:00 Levothyroxine Sodium (Synthroid) 125 mcg DAILY07 PO ; Start 06/11/16 at 12:30 Lisinopril (Prinivil) 20 mg DAILY PO ; Start 06/11/16 at 12:30 Simvastatin (Zocor) 20 mg QHS PO ; Start 06/11/16 at 21:00 Carvedilol (Coreg) 25 mg BIDWMEALS PO ; Start 06/11/16 at 12:30 Potassium Chloride (Klor-Con) 10 meq DAILYWBKFT PO ; Start 06/11/16 at 12:30 Enoxaparin Sodium (Lovenox 40mg Syringe) 40 mg Q24H SQ ; Start 06/11/16 at 13:00 Active Scripts Active Valium (Diazepam) 2 Mg Tablet 2 Mg PO BID Aspirin Ec (Aspirin) 325 Mg Tablet.dr 325 Mg PO DAILYWBKFT 30 Days Coreg (Carvedilol) 25 Mg Tablet 25 Mg PO BIDWMEALS Reported Potassium Chloride 10 Meq Tablet.er 20 Meq PO BID Lasix (Furosemide) 20 Mg Tablet 1 Tab PO DAILY Levothyroxine Sodium 125 Mcg Tablet 1 Tab PO DAILY Simvastatin 20 Mg Tablet 1 Tab PO QHS Lisinopril 20 Mg Tablet 1 Tab PO DAILY Hydralazine Hcl 50 Mg Tablet 1 Tab PO TID Allergies Allergies: Coded Allergies: No Known Drug Allergies (Unverified , 11/24/13) ROS Review of System Patient denies fevers, chills, weight loss, dyspnea, angina, abdominal pain, change in bowels, or dysuria. 14 point review of systems is negative. Physical Exam Physical Examination PHYSICAL EXAMINATION: Vital signs: see above. General appearance is normal and in no acute distress. HEENT: Normocephalic and nontraumatic. Eyes, nose, ears, and throat are unremarkable. Tympanic membranes clear Neck is supple. No lymphadenopathy. No bruits are heard over the carotid artery. No crepitus. NEUROLOGICAL EXAMINATION: Mental Status Examination: Alert. Oriented to time, place, and person. Answers questions and follows commends. Pupils are equal round and reactive to light and accommodation. Funduscopic exam: No papilledema. Extraocular movements are intact. Visual field exam shows no defect on the direct confrontation. No motor or sensory deficits on the facial exam. Uvula in the midline and the soft palate elevated symmetrically. No deviation of the tongue to any direction. Gross hearing is normal. Shoulder shrug normal. Muscle tone is normal. Muscle strength is 5. Deep tendon reflexes are 2+ all around. Plantar reflex is with flexion response bilaterally. [id number] test performance is accurate. Tandem walk test is slightly ataxic, gait is normal. Alternative movements are accurate. Romberg test is negative. Sensory exam shows no deficits. No cerebellar signs are elicited. Vitals VITALS Vital Signs Date Time Temp Pulse Resp B/P (MAP) Pulse Ox O2 Delivery O2 Flow Rate FiO2 06/11/16 12:09 98.1 80 16 146/75 (98) 97 98.1 5/6/17 12:08 Room Air Labs Labs Laboratory Tests Test 06/11/16 08:55 06/11/16 09:30 White Blood Count 6.2 x10^3/uL (4.0-11.0) Red Blood Count 3.16 x10^6/uL (3.50-5.40) Hemoglobin 10.2 g/dL (12.0-15.5) Hematocrit 29.4 % (36.0-47.0) Mean Corpuscular Volume 93 fL (79-100) Mean Corpuscular Hemoglobin 32 pg (25-35) Mean Corpuscular Hemoglobin Concent 35 g/dL (31-37) Red Cell Distribution Width 14.8 % (11.5-14.5) Platelet Count 235 x10^3/uL (140-400) Neutrophils (%) (Auto) 78 % (31-73) Lymphocytes (%) (Auto) 12 % (24-48) Monocytes (%) (Auto) 8 % (0-9) Eosinophils (%) (Auto) 2 % (0-3) Basophils (%) (Auto) 1 % (0-3) Neutrophils # (Auto) 4.8 x10^3uL (1.8-7.7) Lymphocytes # (Auto) 0.7 x10^3/uL (1.0-4.8) Monocytes # (Auto) 0.5 x10^3/uL (0.0-1.1) Eosinophils # (Auto) 0.1 x10^3/uL (0.0-0.7) Basophils # (Auto) 0.0 x10^3/uL (0.0-0.2) Prothrombin Time 14.7 SEC (11.7-14.0) Prothromb Time International Ratio 1.2 (0.8-1.1) Sodium Level 133 mmol/L (136-145) Potassium Level 3.8 mmol/L (3.5-5.1) Chloride Level 101 mmol/L (98-107) Carbon Dioxide Level 23 mmol/L (21-32) Anion Gap 9 (6-14) Blood Urea Nitrogen 16 mg/dL (7-20) Creatinine 0.9 mg/dL (0.6-1.0) Estimated GFR (Cockcroft-Gault) 59.2 Glucose Level 109 mg/dL (70-99) Calcium Level 8.7 mg/dL (8.5-10.1) Magnesium Level 1.9 mg/dL (1.8-2.4) Total Bilirubin 1.5 mg/dL (0.2-1.0) Direct Bilirubin 0.4 mg/dL (0.0-0.2) Aspartate Amino Transf (AST/SGOT) 21 U/L (15-37) Alanine Aminotransferase (ALT/SGPT) 20 U/L (14-59) Alkaline Phosphatase 54 U/L (46-116) Creatine Kinase 29 U/L (26-192) Creatine Kinase MB (Mass) < 0.5 ng/mL (0.0-3.6) Creatine Kinase MB Relative Index % (0-4) Troponin I Quantitative < 0.017 ng/mL (0.000-0.055) AS-Ssk-M-Type Natriuretic Peptide 9243 pg/mL (0-449) Total Protein 6.6 g/dL (6.4-8.2) Albumin 3.3 g/dL (3.4-5.0) Lipase 303 U/L (73-393) Thyroid Stimulating Hormone (TSH) 1.077 uIU/mL (0.358-3.74) Urine Collection Type Unknown Urine Color Yellow Urine Clarity Clear Urine pH 6.0 Urine Specific [place] 1.010 Urine Protein Negative mg/dL (NEG-TRACE) Urine Glucose (UA) Negative mg/dL (NEG) Urine Ketones (Stick) Negative mg/dL (NEG) Urine Blood Negative (NEG) Urine Nitrite Negative (NEG) Urine Bilirubin Negative (NEG) Urine Urobilinogen Dipstick 1.0 mg/dL (0.2 mg/dL) Urine Leukocyte Esterase Trace (NEG) Urine RBC 0 /HPF (0-2) Urine WBC 0 /HPF (0-4) Urine Squamous Epithelial Cells Few /LPF Urine Bacteria 0 /HPF (0-FEW) Laboratory Tests Test 06/11/16 08:55 06/11/16 09:30 White Blood Count 6.2 x10^3/uL (4.0-11.0) Red Blood Count 3.16 x10^6/uL (3.50-5.40) Hemoglobin 10.2 g/dL (12.0-15.5) Hematocrit 29.4 % (36.0-47.0) Mean Corpuscular Volume 93 fL (79-100) Mean Corpuscular Hemoglobin 32 pg (25-35) Mean Corpuscular Hemoglobin Concent 35 g/dL (31-37) Red Cell Distribution Width 14.8 % (11.5-14.5) Platelet Count 235 x10^3/uL (140-400) Neutrophils (%) (Auto) 78 % (31-73) Lymphocytes (%) (Auto) 12 % (24-48) Monocytes (%) (Auto) 8 % (0-9) Eosinophils (%) (Auto) 2 % (0-3) Basophils (%) (Auto) 1 % (0-3) Neutrophils # (Auto) 4.8 x10^3uL (1.8-7.7) Lymphocytes # (Auto) 0.7 x10^3/uL (1.0-4.8) Monocytes # (Auto) 0.5 x10^3/uL (0.0-1.1) Eosinophils # (Auto) 0.1 x10^3/uL (0.0-0.7) Basophils # (Auto) 0.0 x10^3/uL (0.0-0.2) Prothrombin Time 14.7 SEC (11.7-14.0) Prothromb Time International Ratio 1.2 (0.8-1.1) Sodium Level 133 mmol/L (136-145) Potassium Level 3.8 mmol/L (3.5-5.1) Chloride Level 101 mmol/L (98-107) Carbon Dioxide Level 23 mmol/L (21-32) Anion Gap 9 (6-14) Blood Urea Nitrogen 16 mg/dL (7-20) Creatinine 0.9 mg/dL (0.6-1.0) Estimated GFR (Cockcroft-Gault) 59.2 Glucose Level 109 mg/dL (70-99) Calcium Level 8.7 mg/dL (8.5-10.1) Magnesium Level 1.9 mg/dL (1.8-2.4) Total Bilirubin 1.5 mg/dL (0.2-1.0) Direct Bilirubin 0.4 mg/dL (0.0-0.2) Aspartate Amino Transf (AST/SGOT) 21 U/L (15-37) Alanine Aminotransferase (ALT/SGPT) 20 U/L (14-59) Alkaline Phosphatase 54 U/L (46-116) Creatine Kinase 29 U/L (26-192) Creatine Kinase MB (Mass) < 0.5 ng/mL (0.0-3.6) Creatine Kinase MB Relative Index % (0-4) Troponin I Quantitative < 0.017 ng/mL (0.000-0.055) YC-Pcm-S-Type Natriuretic Peptide 9243 pg/mL (0-449) Total Protein 6.6 g/dL (6.4-8.2) Albumin 3.3 g/dL (3.4-5.0) Lipase 303 U/L (73-393) Thyroid Stimulating Hormone (TSH) 1.077 uIU/mL (0.358-3.74) Urine Collection Type Unknown Urine Color Yellow Urine Clarity Clear Urine pH 6.0 Urine Specific [place] 1.010 Urine Protein Negative mg/dL (NEG-TRACE) Urine Glucose (UA) Negative mg/dL (NEG) Urine Ketones (Stick) Negative mg/dL (NEG) Urine Blood Negative (NEG) Urine Nitrite Negative (NEG) Urine Bilirubin Negative (NEG) Urine Urobilinogen Dipstick 1.0 mg/dL (0.2 mg/dL) Urine Leukocyte Esterase Trace (NEG) Urine RBC 0 /HPF (0-2) Urine WBC 0 /HPF (0-4) Urine Squamous Epithelial Cells Few /LPF Urine Bacteria 0 /HPF (0-FEW) Images Images CT head: The calvarium appears unremarkable. The visualized paranasal sinuses appear normal. There is no subdural or epidural hematoma. There is some underlying atrophy compatible with the patient's age. There is a focal deep white matter lucency, image 19, near the right hemispheric vertex. This appears to be new when compared to the previous exam and may represent a small area of interval bland infarction. The finding is subtle and not certain. There is no mass or midline shift. There is no hemorrhage. IMPRESSION: Possible interval small bland infarct in the right deep white matter. The finding is not certain. There is no evidence of hemorrhage Assessment/Plan Assessment/Plan Impression: I am not impressed with the CT findings. I doubt that she has had a new stroke in the location would not explain her symptoms, anyway Lightheadedness is nonspecific, implies relative hypoperfusion. I do not find any vestibular abnormality either. Recommendations: Check orthostatic blood pressures Supportive care Rehabilitation modalities Repeat head CT on 06/13. Discussed with patient's daughter. Thank you for letting me help with the patient's care. TAYLOR DOLAN MD June 11, 2016 12:50
[2016-06-11] MEDS: CARVEDILOL 12.5 MG TABLET. PO SCH ×2 (13:47→17:39)
[2016-06-11] MEDS: FUROSEMIDE 20 MG TABLET PO SCH (13:47)
[2016-06-11] MEDS: ENOXAPARIN 40 MG/0.4 ML SYRINGE. SQ SCH (13:47)
[2016-06-11] MEDS: diazePAM 2 MG TABLET PO SCH ×2 (13:47→22:16)
[2016-06-11] MEDS: LEVOTHYROXINE 125 MCG TABLET PO SCH (13:48)
[2016-06-11] MEDS: POTASSIUM CHLORIDE 10 MEQ TABLET.ER. PO SCH (13:48)
[2016-06-11] MEDS: ASPIRIN ENTERIC COATED 325 MG TABLET.DR. PO SCH (13:48)
[2016-06-11] MEDS: LISINOPRIL 20 MG TABLET PO SCH (13:48)
--- NOTE | 2016-06-11 15:44 | HP ---
ADMIT DATE: 06/11/2016 LOCATION: [facility]. REASON FOR ADMISSION TO THE HOSPITAL: Dizziness, possible lacunar infarct on the CT scan. HISTORY OF PRESENT ILLNESS: The patient is an 85-year-old female, patient of Dr. Gabriel, who has a history of chronic sick sinus syndrome, pacemaker, chronic systolic heart failure, ejection fraction 20%, hypertension, hyperlipidemia, and hypothyroidism. She has chronic dizziness. She is on Antivert, and at last admission, she was seen, had a CT scan x2, carotid Doppler, echocardiogram and was placed on aspirin 325 daily. The patient was supposed to be on Valium 2 mg to improve the symptoms, but she did not get it filled because insurance denied it. PAST MEDICAL HISTORY: Heart failure, systolic hypertension, hypothyroidism, and dizziness. PAST SURGICAL HISTORY: Pacemaker. ALLERGIES: No known drug allergies. MEDICATIONS AT HOME: The patient is on Coreg 25 mg twice daily, Lasix 20 mg daily, potassium 10 mEq daily, diazepam supposed to be on 2 mg twice a day, hydralazine 50 mg 3 times daily, levothyroxine 125 mcg daily, lisinopril 20 mg daily, and simvastatin 20 mg daily. PERSONAL HISTORY: No history of smoking, alcohol, or drug abuse. FAMILY HISTORY: Hypertension. REVIEW OF SYMPTOMS: Dizziness, lightheadedness. No weakness, no problem with speech. Other 14-system was reviewed and negative. PHYSICAL EXAMINATION: GENERAL: The patient is not in any distress. VITAL SIGNS: At the time of admission, temperature 97, pulse 79, respirations 22, blood pressure 130/67, and 98% on room air. HEENT: Head is atraumatic. Pupils equal. Oral cavity: No congestion. NECK: Supple. Thyroid not enlarged. JVD not elevated. CHEST: Symmetrical. CARDIOVASCULAR: S1, S2. No murmurs, has a pacemaker in left chest. LUNGS: Clear to auscultation. No wheezing. ABDOMEN: Soft, bowel sounds present, no mass palpable. EXTERNAL GENITALIA: No Morin. RECTAL: Deferred. EXTREMITIES: No calf tenderness, no edema. Pulses 1+. NEUROLOGIC: Cranial nerves intact. Power 5/5 in all extremities. No nystagmus, no double vision and cranial nerves intact. Power 5/5. LABORATORY DATA: Shows a white count of 6, hemoglobin 10, and platelets 235. Electrolytes show sodium 133, potassium 3.8, chloride 101, bicarbonate 23, BUN 16, and creatinine 0.9. TSH was normal. INR is 1.2. Urine is negative. Chest x-ray is negative. CT scan shows possible lacunar infarct in the deep white matter in the right side. FINAL IMPRESSION: 1. Dizziness. 2. Possible lacunar infarct. 3. Sick sinus syndrome, pacemaker. 4. Chronic systolic heart failure, ejection fraction 23%. 5. Hypothyroidism. 6. Hypertension. 7. 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 PLAN: At this time, Neurology is consulted. The patient is already on aspirin, Valium for dizziness, and PT, OT, and Speech. The patient had a complete workup last month including carotid echocardiogram, and CT scans and we will see what the Neurology recommends. KIERSTEN BALL MD DR: KARY/chel JOB#: [id number] / [id number] ANJEL Laird
[2016-06-11] MEDS ORDERED: SIMVASTATIN 20 MG TABLET PO SCH (21:00)
[2016-06-12 02:54] VITALS: BP 109/42
--- NOTE | 2016-06-12 06:15 | ACF ---
Admission Forms Criteria TELEMETRY CARE Telemetry Admission Guidelines (Place 'X' for any and all applicable criteria): Admission to telemetry [A] may be indicated for ANY ONE of the following(1)(2)(3 )(4)(5): [ ]I. Cardiac disease, including ANY ONE of the following (9)(10)(11)(12)(13 ): [ ]a) Postacute UT [ ]b) Low-risk patients with ST-segment elevation UT who have undergone successful percutaneous coronary intervention [ ]c) Unstable angina [ ]d) Suspected UT (until it is ruled out) [ ]e) Post cardiac surgery (first 48 to 72 hours unless complications occur) [ ]f) Acute arrhythmias (including significant tachycardia or bradycardia) [B] [ ]g) Firing of an implantable cardioverter defibrillator [C] [ ]h) Suspected pacemaker or implantable cardioverter defibrillator malfunction (10) [ ]i) New administration or adjustment of an antiarrhythmic drug [D ] [ ]j) Child admitted for acute congestive heart failure [ ]j) Long QT syndrome [ ]k) Advanced heart block (eg, second-degree Mobitz type II, third- degree heart block) [ ]l) Acute myocarditis or pericarditis [ ]m) Short-term (ambulatory or inpatient) monitoring after a cardiac procedure as indicated by ANY ONE of the following [E]: [ ]i) Electrophysiologic studies [ ]ii) Percutaneous coronary intervention with stent placement [ ]iii) Pacemaker placement with cardiac conduction defect [ ]iv) Implantable cardiac defibrillator placement [ ]II. Drug overdose or poisoning with substance that causes arrhythmias or QT prolongation (eg, phenothiazines, sympathomimetic agents, cyclic antidepressants, digitalis, antiarrhythmic drugs)(15) [ ]III. Short-term (ambulatory or inpatient) monitoring after therapeutic or diagnostic procedure requiring conscious sedation or anesthesia (eg, endoscopy, elective cardioversion) [X]IV. Acute cerebrovascular even[F](18) [ ]V. Massive blood transfusion (eg, at least 10 units of packed red blood cells in 24 hours) [ ]. Variceal bleeding after endoscopy, sclerotherapy, or IV vasopressin [ ]VII. Uncorrected electrolyte abnormalities associated with an increased risk of dangerous arrhythmia [G]; examples include [ ]a) Hyperkalemia with attributable ECG changes [ ]b) Potassium greater than 6.5 mmol/L (mEq/L) in a patient without history of chronic renal disease [ ]c) Prolonged QT attributed to hypokalemia, hypomagnesemia, or hypocalcemia [ ]VIII.Unexplained syncope or other neurologic event suspected of being due to arrhythmia due to a finding that increases risk; examples include(19)(20)(21): [ ]a) High-risk ECG findings (eg, bifascicular block, bradycardia, abnormal QT interval, ventricular pre- excitation) [ ]b) History of previous syncope due to arrhythmia [ ]c) Abnormal ventricular function (eg, reduced ejection fraction ) [ ]d) Exertional or supine syncope [ ]e) Concerning syncope characteristics (eg, sudden loss of consciousness without prodrome) [ ]f) Family history of sudden [ ]g) Use of arrhythmogenic medication [ ]h) Suspected cardiac ischemia [ ]i) Known channelopathy (eg, long QT syndrome, Brugada syndrome, or catecholaminergic paroxysmal ventricular tachycardia) [ ]j) Known structural heart disease (eg, hypertrophic cardiomyopathy , severe valvular disease) [ ]k) Palpitations preceding syncope The original [employer] content created by [employer] has been revised. The portions of the content which have been revised are identified through the use of italic text or in bold, and [employer] has neither reviewed nor approved the modified material. All other unmodified content is copyright [employer]. Please see references footnoted in the original [employer] edition 2016 Admission Criteria Met?: Yes SHERLYN ZALDIVAR June 12, 2016 06:15
[2016-06-12 06:35] LABS: BASO # 0.1 x10^3/uL (0.0-0.2); BASO % 1 % (0-3); EOS % 2 % (0-3); HEMATOCRIT 28.2 % (36.0-47.0); HEMOGLOBIN 9.4 g/dL (12.0-15.5); LYMPH # 1.2 x10^3/uL (1.0-4.8); LYMPH % 21 % (24-48); MEAN CORPUSCULAR HEMOGLOBIN 32 pg (25-35); MEAN CORPUSCULAR HGB CONC 34 g/dL (31-37); MEAN CORPUSCULAR VOLUME 96 fL (79-100); MONO % 9 % (0-9); NEUT % 67 % (31-73); PLATELET COUNT 206 x10^3/uL (140-400); RED BLOOD COUNT 2.94 x10^6/uL (3.50-5.40); RED CELL DISTRIBUTION WIDTH 15.1 % (11.5-14.5); WHITE BLOOD COUNT 5.5 x10^3/uL (4.0-11.0)
[2016-06-12 06:47] LABS: CALCIUM 8.4 mg/dL (8.5-10.1); CREATININE 0.9 mg/dL (0.6-1.0); GFR 59.2; POTASSIUM 3.8 mmol/L (3.5-5.1)
[2016-06-12 07:33] VITALS: BP 126/53
[2016-06-12] MEDS: ASPIRIN ENTERIC COATED 325 MG TABLET.DR. PO SCH (08:00)
[2016-06-12] MEDS: CARVEDILOL 12.5 MG TABLET. PO SCH (10:24)
[2016-06-12] MEDS: LEVOTHYROXINE 125 MCG TABLET PO SCH (10:25)
[2016-06-12] MEDS: LISINOPRIL 20 MG TABLET PO SCH (10:25)
[2016-06-12] MEDS: FUROSEMIDE 20 MG TABLET PO SCH (10:26)
[2016-06-12] MEDS: diazePAM 2 MG TABLET PO SCH (10:26)
[2016-06-12] MEDS: POTASSIUM CHLORIDE 10 MEQ TABLET.ER. PO SCH (10:26)
--- NOTE | 2016-06-12 10:55 | PDOC ---
PROGRESS NOTES Subjective Subjective feeling better ,anxious to go home Objective Objective Vital Signs Date Time Temp Pulse Resp B/P (MAP) Pulse Ox O2 Delivery O2 Flow Rate FiO2 06/12/16 10:25 71 126/53 06/12/16 07:33 97.9 18 98 Room Air 97.9 Intake and Output 06/12/16 07:00 Intake Total 400 ml Balance 400 ml Intake Oral 400 ml # Voids 5 Physical Exam Abdomen: Normal bowel sounds, Soft Heart: Regular rate, Normal S1 Extremities: No clubbing General: Alert HEENT: Atraumatic Lungs: Clear to auscultation MUSCULOSKELETAL: No joint tenderness Neck: Supple Neuro: Normal speech Psych/Mental Status: Mental status NL Skin: No breakdown Diagnosis Problem List Problems Medical Problems: (1) Chest pain Status: Acute (2) Stroke Status: Acute Assessment Assessment Problems Medical Problems: (1) Chest pain Status: Acute (2) Stroke Status: Acute FINAL IMPRESSION: 1. Dizziness. 2. Possible lacunar infarct?. 3. Sick sinus syndrome, pacemaker. 4. Chronic systolic heart failure, ejection fraction 20%. 5. Hypothyroidism. 6. Hypertension. 7. 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 PLAN: seen by neurology ,no stroke. no ortho static bp changes. labs ok, monitor no arrhythmias d/c home today out pt CT head. cAt this time, Neurology is consulted. The patient is already on aspirin, Valium for dizziness, and PT, OT, and Speech. The patient had a complete workup last month including carotid echocardiogram, and CT scans and we will see what the Neurology recommends. Problems: Plan Plan of Care Problems Medical Problems: (1) Chest pain Status: Acute (2) Stroke Status: Acute Comment Review of Relevant I have reviewed the following items bonny (where applicable) has been applied. Labs Laboratory Tests Test 06/11/16 16:05 06/11/16 22:10 06/12/16 05:00 Troponin I Quantitative < 0.017 ng/mL (0.000-0.055) 0.018 ng/mL (0.000-0.055) White Blood Count 5.5 x10^3/uL (4.0-11.0) Red Blood Count 2.94 x10^6/uL (3.50-5.40) Hemoglobin 9.4 g/dL (12.0-15.5) Hematocrit 28.2 % (36.0-47.0) Mean Corpuscular Volume 96 fL (79-100) Mean Corpuscular Hemoglobin 32 pg (25-35) Mean Corpuscular Hemoglobin Concent 34 g/dL (31-37) Red Cell Distribution Width 15.1 % (11.5-14.5) Platelet Count 206 x10^3/uL (140-400) Neutrophils (%) (Auto) 67 % (31-73) Lymphocytes (%) (Auto) 21 % (24-48) Monocytes (%) (Auto) 9 % (0-9) Eosinophils (%) (Auto) 2 % (0-3) Basophils (%) (Auto) 1 % (0-3) Neutrophils # (Auto) 3.7 x10^3uL (1.8-7.7) Lymphocytes # (Auto) 1.2 x10^3/uL (1.0-4.8) Monocytes # (Auto) 0.5 x10^3/uL (0.0-1.1) Eosinophils # (Auto) 0.1 x10^3/uL (0.0-0.7) Basophils # (Auto) 0.1 x10^3/uL (0.0-0.2) Sodium Level 135 mmol/L (136-145) Potassium Level 3.8 mmol/L (3.5-5.1) Chloride Level 102 mmol/L (98-107) Carbon Dioxide Level 24 mmol/L (21-32) Anion Gap 9 (6-14) Blood Urea Nitrogen 20 mg/dL (7-20) Creatinine 0.9 mg/dL (0.6-1.0) Estimated GFR (Cockcroft-Gault) 59.2 Glucose Level 68 mg/dL (70-99) Calcium Level 8.4 mg/dL (8.5-10.1) Medications Current Medications Aspirin (Ecotrin) 325 mg DAILYWBKFT PO Last administered on 06/12/16 08:00; Start 06/11/16 at 12:30 Carvedilol (Coreg) 25 mg BIDWMEALS PO Last administered on 06/12/16 10:24; Start 06/11/16 at 12:30 Diazepam (Valium) 2 mg BID PO Last administered on 06/12/16 10:26; Start at 12:30 Enoxaparin Sodium (Lovenox 40mg Syringe) 40 mg Q24H SQ Last administered on 06/11 13:47; Start 06/11/16 at 13:00 Furosemide (Lasix) 20 mg DAILY PO Last administered on 06/12/16 10:26; Start at 12:30 Hydralazine HCl (Apresoline) 50 mg TID PO Last administered on 06/12/16 10:25; Start 06/11/16 at 14:00 Levothyroxine Sodium (Synthroid) 125 mcg DAILY07 PO Last administered on 10:25; Start 06/11/16 at 12:30 Lisinopril (Prinivil) 20 mg DAILY PO Last administered on 06/12/16 10:25; Start 06/11/16 at 12:30 Potassium Chloride (Klor-Con) 10 meq DAILYWBKFT PO Last administered on 10:26; Start 06/11/16 at 12:30 Simvastatin (Zocor) 20 mg QHS PO Last administered on 06/11/16 22:16; Start 06/11/16 at 21:00 Vitals/I & O Vital Sign - Last 24 Hours 06/11/16 06/11/16 06/11/16 06/11/16 10:55 12:08 12:09 13:47 Temp 98.1 98.1 98.1 98.1 Pulse 75 80 80 80 Resp 18 16 16 B/P (MAP) 154/71 (98) 146/75 (98) 146/75 (98) 146/75 Pulse Ox 98 97 97 O2 Delivery Room Air Room Air 06/11/16 06/11/16 06/11/16 06/11/16 13:48 13:48 15:00 15:02 Temp 98.1 98.1 Pulse 80 80 83 85 Resp 16 14 B/P (MAP) 146/75 146/75 111/57 (75) 121/70 (87) Pulse Ox 99 99 O2 Delivery Room Air Room Air 06/11/16 06/11/16 06/11/16 06/11/16 15:03 17:12 17:39 19:00 Temp 97.5 97.5 Pulse 83 76 67 Resp 14 18 B/P (MAP) 125/71 (89) 106/43 (64) Pulse Ox 99 97 O2 Delivery Room Air Room Air Room Air 06/11/16 06/11/16 06/11/16 06/12/16 20:00 22:18 22:57 02:54 Temp 98.2 98.3 98.2 98.3 Pulse 67 68 65 Resp 18 18 B/P (MAP) 106/46 99/43 (61) 109/42 (64) Pulse Ox 95 93 O2 Delivery Room Air Room Air Room Air 06/12/16 06/12/16 06/12/16 06/12/16 07:33 10:24 10:25 10:25 Temp 97.9 97.9 Pulse 71 71 71 71 Resp 18 B/P (MAP) 126/53 (77) 126/53 126/53 126/53 Pulse Ox 98 O2 Delivery Room Air Intake and Output 06/11/16 06/11/16 06/12/16 15:00 23:00 07:00 Intake Total 400 ml Balance 400 ml KIERSTEN BALL MD June 12, 2016 10:55
[2016-06-12 11:48] VITALS: BP 115/45
[2016-06-12] MEDS: ENOXAPARIN 40 MG/0.4 ML SYRINGE. SQ SCH (13:00)
[2016-06-12 15:05] VITALS: BP 115/45
--- NOTE | 2016-06-12 16:05 | PDOC ---
PROGRESS NOTES Assessment Problems Medical Problems: (1) Chest pain Status: Acute (2) Stroke Status: Acute Abnormal head CT Lightheadedness is nonspecific, implies relative hypoperfusion. I do not find any vestibular abnormality either. Not orthostatic Plan Agree with discharge Repeat head CT on 06/13 as outpatient. Discussed with patient's daughters. Subjective Feels fine, wants to go home Objective Vital Signs Date Time Temp Pulse Resp B/P (MAP) Pulse Ox O2 Delivery O2 Flow Rate FiO2 06/12/16 15:05 71 115/45 06/12/16 11:48 98.1 18 99 Room Air 98.1 Intake and Output 06/12/16 07:00 Intake Total 400 ml Balance 400 ml Intake Oral 400 ml # Voids 5 PHYSICAL EXAM Alert. Oriented to time, place and person. PERRL. EOMI. CN: no focal findings. Muscle tone: normal. Muscle strength: 5/5 DTR: 1+ Plantar reflex: flexor Gait: normal. Sensory exam: no abnormal findings. No cerebellar signs elicited. Review of Relevant I have reviewed the following items bonny (where applicable) has been applied. Labs Laboratory Tests Test 06/11/16 08:55 06/11/16 09:30 06/11/16 16:05 06/11/16 22:10 White Blood Count 6.2 x10^3/uL (4.0-11.0) Red Blood Count 3.16 x10^6/uL (3.50-5.40) Hemoglobin 10.2 g/dL (12.0-15.5) Hematocrit 29.4 % (36.0-47.0) Mean Corpuscular Volume 93 fL (79-100) Mean Corpuscular Hemoglobin 32 pg (25-35) Mean Corpuscular Hemoglobin Concent 35 g/dL (31-37) Red Cell Distribution Width 14.8 % (11.5-14.5) Platelet Count 235 x10^3/uL (140-400) Neutrophils (%) (Auto) 78 % (31-73) Lymphocytes (%) (Auto) 12 % (24-48) Monocytes (%) (Auto) 8 % (0-9) Eosinophils (%) (Auto) 2 % (0-3) Basophils (%) (Auto) 1 % (0-3) Neutrophils # (Auto) 4.8 x10^3uL (1.8-7.7) Lymphocytes # (Auto) 0.7 x10^3/uL (1.0-4.8) Monocytes # (Auto) 0.5 x10^3/uL (0.0-1.1) Eosinophils # (Auto) 0.1 x10^3/uL (0.0-0.7) Basophils # (Auto) 0.0 x10^3/uL (0.0-0.2) Prothrombin Time 14.7 SEC (11.7-14.0) Prothromb Time International Ratio 1.2 (0.8-1.1) Sodium Level 133 mmol/L (136-145) Potassium Level 3.8 mmol/L (3.5-5.1) Chloride Level 101 mmol/L (98-107) Carbon Dioxide Level 23 mmol/L (21-32) Anion Gap 9 (6-14) Blood Urea Nitrogen 16 mg/dL (7-20) Creatinine 0.9 mg/dL (0.6-1.0) Estimated GFR (Cockcroft-Gault) 59.2 Glucose Level 109 mg/dL (70-99) Calcium Level 8.7 mg/dL (8.5-10.1) Magnesium Level 1.9 mg/dL (1.8-2.4) Total Bilirubin 1.5 mg/dL (0.2-1.0) Direct Bilirubin 0.4 mg/dL (0.0-0.2) Aspartate Amino Transf (AST/SGOT) 21 U/L (15-37) Alanine Aminotransferase (ALT/SGPT) 20 U/L (14-59) Alkaline Phosphatase 54 U/L (46-116) Creatine Kinase 29 U/L (26-192) Creatine Kinase MB (Mass) < 0.5 ng/mL (0.0-3.6) Creatine Kinase MB Relative Index % (0-4) Troponin I Quantitative < 0.017 ng/mL (0.000-0.055) < 0.017 ng/mL (0.000-0.055) 0.018 ng/mL (0.000-0.055) QX-Dhb-U-Type Natriuretic Peptide 9243 pg/mL (0-449) Total Protein 6.6 g/dL (6.4-8.2) Albumin 3.3 g/dL (3.4-5.0) Lipase 303 U/L (73-393) Thyroid Stimulating Hormone (TSH) 1.077 uIU/mL (0.358-3.74) Urine Collection Type Unknown Urine Color Yellow Urine Clarity Clear Urine pH 6.0 Urine Specific [place] 1.010 Urine Protein Negative mg/dL (NEG-TRACE) Urine Glucose (UA) Negative mg/dL (NEG) Urine Ketones (Stick) Negative mg/dL (NEG) Urine Blood Negative (NEG) Urine Nitrite Negative (NEG) Urine Bilirubin Negative (NEG) Urine Urobilinogen Dipstick 1.0 mg/dL (0.2 mg/dL) Urine Leukocyte Esterase Trace (NEG) Urine RBC 0 /HPF (0-2) Urine WBC 0 /HPF (0-4) Urine Squamous Epithelial Cells Few /LPF Urine Bacteria 0 /HPF (0-FEW) Test 06/12/16 05:00 White Blood Count 5.5 x10^3/uL (4.0-11.0) Red Blood Count 2.94 x10^6/uL (3.50-5.40) Hemoglobin 9.4 g/dL (12.0-15.5) Hematocrit 28.2 % (36.0-47.0) Mean Corpuscular Volume 96 fL (79-100) Mean Corpuscular Hemoglobin 32 pg (25-35) Mean Corpuscular Hemoglobin Concent 34 g/dL (31-37) Red Cell Distribution Width 15.1 % (11.5-14.5) Platelet Count 206 x10^3/uL (140-400) Neutrophils (%) (Auto) 67 % (31-73) Lymphocytes (%) (Auto) 21 % (24-48) Monocytes (%) (Auto) 9 % (0-9) Eosinophils (%) (Auto) 2 % (0-3) Basophils (%) (Auto) 1 % (0-3) Neutrophils # (Auto) 3.7 x10^3uL (1.8-7.7) Lymphocytes # (Auto) 1.2 x10^3/uL (1.0-4.8) Monocytes # (Auto) 0.5 x10^3/uL (0.0-1.1) Eosinophils # (Auto) 0.1 x10^3/uL (0.0-0.7) Basophils # (Auto) 0.1 x10^3/uL (0.0-0.2) Sodium Level 135 mmol/L (136-145) Potassium Level 3.8 mmol/L (3.5-5.1) Chloride Level 102 mmol/L (98-107) Carbon Dioxide Level 24 mmol/L (21-32) Anion Gap 9 (6-14) Blood Urea Nitrogen 20 mg/dL (7-20) Creatinine 0.9 mg/dL (0.6-1.0) Estimated GFR (Cockcroft-Gault) 59.2 Glucose Level 68 mg/dL (70-99) Calcium Level 8.4 mg/dL (8.5-10.1) Laboratory Tests Test 06/11/16 16:05 06/11/16 22:10 06/12/16 05:00 Troponin I Quantitative < 0.017 ng/mL (0.000-0.055) 0.018 ng/mL (0.000-0.055) White Blood Count 5.5 x10^3/uL (4.0-11.0) Red Blood Count 2.94 x10^6/uL (3.50-5.40) Hemoglobin 9.4 g/dL (12.0-15.5) Hematocrit 28.2 % (36.0-47.0) Mean Corpuscular Volume 96 fL (79-100) Mean Corpuscular Hemoglobin 32 pg (25-35) Mean Corpuscular Hemoglobin Concent 34 g/dL (31-37) Red Cell Distribution Width 15.1 % (11.5-14.5) Platelet Count 206 x10^3/uL (140-400) Neutrophils (%) (Auto) 67 % (31-73) Lymphocytes (%) (Auto) 21 % (24-48) Monocytes (%) (Auto) 9 % (0-9) Eosinophils (%) (Auto) 2 % (0-3) Basophils (%) (Auto) 1 % (0-3) Neutrophils # (Auto) 3.7 x10^3uL (1.8-7.7) Lymphocytes # (Auto) 1.2 x10^3/uL (1.0-4.8) Monocytes # (Auto) 0.5 x10^3/uL (0.0-1.1) Eosinophils # (Auto) 0.1 x10^3/uL (0.0-0.7) Basophils # (Auto) 0.1 x10^3/uL (0.0-0.2) Sodium Level 135 mmol/L (136-145) Potassium Level 3.8 mmol/L (3.5-5.1) Chloride Level 102 mmol/L (98-107) Carbon Dioxide Level 24 mmol/L (21-32) Anion Gap 9 (6-14) Blood Urea Nitrogen 20 mg/dL (7-20) Creatinine 0.9 mg/dL (0.6-1.0) Estimated GFR (Cockcroft-Gault) 59.2 Glucose Level 68 mg/dL (70-99) Calcium Level 8.4 mg/dL (8.5-10.1) Medications Current Medications Ondansetron HCl (Zofran) 4 mg PRN Q8HRS PRN IV NAUSEA/VOMITING; Start 06/11/16 at 10:15; Stop 06/12/16 at 10:14; Status DC Aspirin (Ecotrin) 325 mg DAILYWBKFT PO Last administered on 06/12/16 08:00; Start 06/11/16 at 12:30 Diazepam (Valium) 2 mg BID PO Last administered on 06/12/16 10:26; Start at 12:30 Furosemide (Lasix) 20 mg DAILY PO Last administered on 06/12/16 10:26; Start at 12:30 Hydralazine HCl (Apresoline) 50 mg TID PO Last administered on 06/12/16 15:05; Start 06/11/16 at 14:00 Levothyroxine Sodium (Synthroid) 125 mcg DAILY07 PO Last administered on 10:25; Start 06/11/16 at 12:30 Lisinopril (Prinivil) 20 mg DAILY PO Last administered on 06/12/16 10:25; Start 06/11/16 at 12:30 Simvastatin (Zocor) 20 mg QHS PO Last administered on 06/11/16 22:16; Start 06/11/16 at 21:00 Carvedilol (Coreg) 25 mg BIDWMEALS PO Last administered on 06/12/16 10:24; Start 06/11/16 at 12:30 Potassium Chloride (Klor-Con) 10 meq DAILYWBKFT PO Last administered on 10:26; Start 06/11/16 at 12:30 Enoxaparin Sodium (Lovenox 40mg Syringe) 40 mg Q24H SQ Last administered on 06/11 13:47; Start 06/11/16 at 13:00 Active Scripts Active Valium (Diazepam) 2 Mg Tablet 2 Mg PO BID Aspirin Ec (Aspirin) 325 Mg Tablet.dr 325 Mg PO DAILYWBKFT 30 Days Coreg (Carvedilol) 25 Mg Tablet 25 Mg PO BIDWMEALS Reported Potassium Chloride 10 Meq Tablet.er 20 Meq PO BID Lasix (Furosemide) 20 Mg Tablet 1 Tab PO DAILY Levothyroxine Sodium 125 Mcg Tablet 1 Tab PO DAILY Simvastatin 20 Mg Tablet 1 Tab PO QHS Lisinopril 20 Mg Tablet 1 Tab PO DAILY Hydralazine Hcl 50 Mg Tablet 1 Tab PO TID Vitals/I & O Vital Sign - Last 24 Hours 06/11/16 06/11/16 06/11/16 06/11/16 17:12 17:39 19:00 20:00 Temp 97.5 97.5 Pulse 76 67 Resp 18 B/P (MAP) 106/43 (64) Pulse Ox 97 O2 Delivery Room Air Room Air Room Air 06/11/16 06/11/16 06/12/16 06/12/16 22:18 22:57 02:54 07:33 Temp 98.2 98.3 97.9 98.2 98.3 97.9 Pulse 67 68 65 71 Resp 18 18 18 B/P (MAP) 106/46 99/43 (61) 109/42 (64) 126/53 (77) Pulse Ox 95 93 98 O2 Delivery Room Air Room Air Room Air 06/12/16 06/12/16 06/12/16 06/12/16 08:00 10:24 10:25 10:25 Pulse 71 71 71 B/P (MAP) 126/53 126/53 126/53 O2 Delivery Room Air 06/12/16 06/12/16 11:48 15:05 Temp 98.1 98.1 Pulse 71 71 Resp 18 B/P (MAP) 115/45 (68) 115/45 Pulse Ox 99 O2 Delivery Room Air Intake and Output 06/11/16 06/11/16 06/12/16 15:00 23:00 07:00 Intake Total 400 ml Balance 400 ml TAYLOR DOLAN MD June 12, 2016 16:05
--- NOTE | 2016-06-14 14:43 | PDOC ---
Provider Note Provider Note Discharge summary dictated. #[id number] KIERSTEN BALL MD June 14, 2016 14:42
--- NOTE | 2016-06-14 22:28 | DS ---
DATE OF DISCHARGE: 06/12/2016 REASON FOR ADMISSION TO THE HOSPITAL: Dizziness, possible cerebrovascular accident. CONSULTATIONS: Dr. Moon. PROCEDURES DONE: CT head. COMPLICATIONS NOTED: None. HOSPITAL COURSE: The patient is an 85-year-old female with history of chronic systolic heart failure, ejection fraction 20%, has a pacemaker with chronic dizziness, came with lightheaded and dizziness, was seen by Neurology. CT scan initially thought could be lacunar infarct in the right deep white matter, but does not think it was a stroke. The patient had no symptoms except dizziness and it was thought could be vasovagal. On the whole, the patient's condition improved. She was feeling better, does not want to stay in the hospital, she was discharged. FINAL IMPRESSION: 1. Dizziness, probably related to vasovagal. 2. 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 3. Chronic systolic heart failure, ejection fraction 20%. 4. Pacemaker for sick sinus syndrome. 5. Hypothyroidism. DISPOSITION: The patient was given a small dose of Valium 2 mg along with Antivert and see how she does and aspirin 325 mg daily and the patient was supposed to have a repeat CT head in a couple of days as outpatient. KIERSTEN BALL MD DR: KARY/chel JOB#: [id number] / [id number] pooja Gabriel, BHARGAVID
== END 2016-06-12 15:30 | disposition home or self-care (01) | DRG 149 ==
LOC: ER 08:05 → 6 SOUTH 10:49
PROVIDERS: ADMIT Internal Medicine; ATTEND Internal Medicine
DX: R42 Dizziness and giddiness (principal); I50.22 Chronic systolic (congestive) heart failure; I11.0 Hypertensive heart disease with heart failure; H83.09 Labyrinthitis, unspecified ear; E78.5 Hyperlipidemia, unspecified; E78.00 Pure hypercholesterolemia, unspecified; E03.9 Hypothyroidism, unspecified; I49.5 Sick sinus syndrome; Z79.82 Long term (current) use of aspirin; Z82.49 Family history of ischemic heart disease and other diseases of the circulatory system; Z86.73 Personal history of transient ischemic attack (TIA), and cerebral infarction without residual deficits; Z95.0 Presence of cardiac pacemaker
CPT/HCPCS: 36415; 70450; 71010; 80048; 80076; 81001; 82553; 83690; 83735; 83880; 84443; 84484; 85027; 85610; 87086; 93005; J1650; 92610; 99285-25

== ENCOUNTER 2016-06-17 09:12 | Observation (INO) | payer MEDICARE ==
[~2016-06-17] VITALS: Ht 154.9 cm; Wt 60.3 kg
[2016-06-17 09:40] LABS: BILIRUBIN,URINE SMALL (NEG); GLUCOSE,URINE NEGATIVE (NEG); NITRITE,URINE NEGATIVE (NEG); PH,URINE 5.5; PROTEIN,URINE NEGATIVE (NEG-TRACE)
--- NOTE | 2016-06-17 09:50 | EKG ---
[facility] [address] [place] [address] Test Date: 2016-06-17 Test Time: 09:35:02 Pat Name: MAE QUINONES Department: Room: Gender: F Legislative Analyst: : [id number] Requested By: MILTON OJEDA Order Number: [id number] Reading MD: Yandel Armando Measurements Intervals [place] Rate: 80 P: 90 TN: 164 QRS: -44 QRSD: 206 T: 135 QT: 452 QTc: 526 Interpretive Statements SINUS RHYTHM ABNORMAL LEFT AXIS DEVIATION SUSPECT BIV PACING Electronically Signed On 06-20-2016 9:36:21 CDT by Yandel Armando
[2016-06-17 09:51] LABS: BACTERIA,URINE FEW /HPF (0-FEW); RBC,URINE RARE /HPF (0-2); SQUAMOUS EPITHELIAL CELL,UR FEW /LPF
[2016-06-17 09:57] LABS: BASO % 1 % (0-3); EOS % 2 % (0-3); HEMATOCRIT 31.3 % (36.0-47.0); HEMOGLOBIN 10.7 g/dL (12.0-15.5); LYMPH # 0.8 x10^3/uL (1.0-4.8); LYMPH % 12 % (24-48); MEAN CORPUSCULAR HEMOGLOBIN 32 pg (25-35); MEAN CORPUSCULAR HGB CONC 34 g/dL (31-37); MEAN CORPUSCULAR VOLUME 93 fL (79-100); MONO % 6 % (0-9); NEUT % 79 % (31-73); PLATELET COUNT 255 x10^3/uL (140-400); RED BLOOD COUNT 3.35 x10^6/uL (3.50-5.40); RED CELL DISTRIBUTION WIDTH 14.8 % (11.5-14.5); WHITE BLOOD COUNT 6.3 x10^3/uL (4.0-11.0)
--- NOTE | 2016-06-17 10:10 | RAD ---
Exam performed: One view chest History: Headache and chest and feet pain since 5:00 AM this morning. Date of service: 06/17/16. Comparison: 06/11/16. Single AP upright portable view chest findings: Moderate cardiomegaly. Pulmonary vascularity is mildly congested. Coarse interstitial markings are redemonstrated. Streaky linear opacities in the left lung base. Bipolar pacemaker. Impression: Cardiomegaly with central vascular congestion. Coarse interstitial markings may be chronic, however a component of low-grade CHF cannot be excluded. Correlate clinically
--- NOTE | 2016-06-17 10:27 | PHYS DOC ---
Past Medical History Past Medical History: CHF, High Cholesterol, Hypertension, Hypothyroid, Stroke Additional Past Medical Histor: hiatal hernia Past Surgical History: Pacemaker Alcohol Use: Occasionally Drug Use: None Adult General Chief Complaint Chief Complaint: DIZZY/LIGHT HEADED HPI HPI 85-year-old female presenting to the emergency department today feeling lightheaded with intermittent chest pain. It started around 5:00 this morning. She denies nausea vomiting or diaphoresis. She denies shortness of breath. Her pain is mild intermittent nonradiating and without alleviating factors. She does feel like both of her extremities have swollen over the past 24 hours. Review of systems is negative for fevers chills cough nausea vomiting abdominal pain. All other review of systems is negative unless otherwise noted in history of present illness. Review of Systems Review of Systems SEE ABOVE. Current Medications Current Medications Current Medications Medications (Trade) Dose Ordered Sig/Kenneth Start Time Stop Time Status Last Admin Dose Admin Furosemide (Lasix) 20 mg 1X ONCE 06/17/16 10:45 06/17/16 10:46 UNV Morphine Sulfate 2 mg PRN Q2HR PRN 06/17/16 10:45 06/18/16 10:44 UNV Nitroglycerin (Nitrostat) 0.4 mg PRN Q5MIN PRN 06/17/16 10:45 06/18/16 10:44 UNV Ondansetron HCl (Zofran) 4 mg PRN Q8HRS PRN 06/17/16 10:45 06/18/16 10:44 UNV Allergies Allergies Allergies Coded Allergies Type Severity Reaction Last Updated Verified No Known Drug Allergies 11/24/13 No Physical Exam Physical Exam Constitutional: Well developed, well nourished, no acute distress, non-toxic appearance. [] HENT: Normocephalic, atraumatic, bilateral external ears normal, oropharynx moist, no oral exudates, nose normal. [] Eyes: PERRLA, EOMI, conjunctiva normal, no discharge. [] Neck: Normal range of motion, no tenderness, supple, no stridor. [] Cardiovascular:Heart rate regular rhythm, no murmur [] Lungs & Thorax: Bilateral breath sounds clear to auscultation [] Abdomen: Bowel sounds normal, soft, no tenderness, no masses, no pulsatile masses. [] Skin: Warm, dry, no erythema, no rash. [] Back: No tenderness, no CVA tenderness. [] Extremities: No tenderness, no cyanosis, no clubbing, ROM intact, no edema. [] Neurologic: Alert and oriented X 3, normal motor function, normal sensory function, no focal deficits noted. [] Psychologic: Affect normal, judgement normal, mood normal. [] Current Patient Data Vital Signs Vital Signs Date Time Temp Pulse Resp B/P (MAP) Pulse Ox O2 Delivery O2 Flow Rate FiO2 06/17/16 09:33 97.8 80 18 165/79 (107) 97 Room Air 97.8 Lab Values Laboratory Tests Test 06/17/16 09:25 06/17/16 09:45 Urine Collection Type Void Urine Color Yellow Urine Clarity Clear Urine pH 5.5 Urine Specific [place] 1.020 Urine Protein Negative mg/dL (NEG-TRACE) Urine Glucose (UA) Negative mg/dL (NEG) Urine Ketones (Stick) Negative mg/dL (NEG) Urine Blood Negative (NEG) Urine Nitrite Negative (NEG) Urine Bilirubin Small (NEG) Urine Urobilinogen Dipstick 1.0 mg/dL (0.2 mg/dL) Urine Leukocyte Esterase Trace (NEG) Urine RBC Rare /HPF (0-2) Urine WBC 1-4 /HPF (0-4) Urine Squamous Epithelial Cells Few /LPF Urine Bacteria Few /HPF (0-FEW) Urine Mucus Mod /LPF White Blood Count 6.3 x10^3/uL (4.0-11.0) Red Blood Count 3.35 x10^6/uL (3.50-5.40) L Hemoglobin 10.7 g/dL (12.0-15.5) L Hematocrit 31.3 % (36.0-47.0) L Mean Corpuscular Volume 93 fL (79-100) Mean Corpuscular Hemoglobin 32 pg (25-35) Mean Corpuscular Hemoglobin Concent 34 g/dL (31-37) Red Cell Distribution Width 14.8 % (11.5-14.5) H Platelet Count 255 x10^3/uL (140-400) Neutrophils (%) (Auto) 79 % (31-73) H Lymphocytes (%) (Auto) 12 % (24-48) L Monocytes (%) (Auto) 6 % (0-9) Eosinophils (%) (Auto) 2 % (0-3) Basophils (%) (Auto) 1 % (0-3) Neutrophils # (Auto) 5.0 x10^3uL (1.8-7.7) Lymphocytes # (Auto) 0.8 x10^3/uL (1.0-4.8) L Monocytes # (Auto) 0.4 x10^3/uL (0.0-1.1) Eosinophils # (Auto) 0.1 x10^3/uL (0.0-0.7) Basophils # (Auto) 0.0 x10^3/uL (0.0-0.2) Sodium Level 135 mmol/L (136-145) L Potassium Level 4.0 mmol/L (3.5-5.1) Chloride Level 100 mmol/L (98-107) Carbon Dioxide Level 23 mmol/L (21-32) Anion Gap 12 (6-14) Blood Urea Nitrogen 21 mg/dL (7-20) H Creatinine 0.8 mg/dL (0.6-1.0) Estimated GFR (Cockcroft-Gault) 67.8 Glucose Level 116 mg/dL (70-99) H Lactic Acid Level 1.3 mmol/L (0.4-2.0) Calcium Level 8.8 mg/dL (8.5-10.1) Total Bilirubin Pending Direct Bilirubin Pending Aspartate Amino Transferase (AST) Pending Alanine Aminotransferase (ALT) Pending Alkaline Phosphatase Pending Troponin I Quantitative < 0.017 ng/mL (0.000-0.055) [id number]-Type Natriuretic Peptide 43857 pg/mL (0-449) H Total Protein Pending Albumin 3.5 g/dL (3.4-5.0) Lipase Pending Laboratory Tests 06/17/16 09:45 Laboratory Tests 06/17/16 09:45 EKG EKG [] EKG shows a paced rhythm. Radiology/Procedures Radiology/Procedures [] Course & Med Decision Making Course & Med Decision Making Pertinent Labs and Imaging studies reviewed. (See chart for details) [] 85-year-old female presenting to the emergency department with shortness of breath lightheadedness chest pain. EKG shows paced rhythm electronic medical record review shows that she has a significant CHF history with a poor EF. ProBNP came back elevated CBC shows mild chronic anemia urinalysis not suggestive of infection chemistry panel shows negative troponin. BUN mildly elevated. I discussed the case with Dr. Oleary who accepted admission for the patient. The patient was then admitted to our hospital for further evaluation workup and care. Cardiology consult was placed. Dragon Disclaimer Dragon Disclaimer This electronic medical record was generated, in whole or in part, using a voice recognition dictation system. Departure Departure Impression: Primary Impression: CHF (congestive heart failure) Additional Impressions: SOBOE (shortness of breath on exertion) Chest pain Disposition: ADMITTED INPATIENT Admitting Physician: Charlene Oleary Condition: IMPROVED Referrals: ANJEL SHARP (PCP) Problem Qualifiers Primary Impression: CHF (congestive heart failure) Congestive heart failure type: systolic Congestive heart failure chronicity: acute on chronic Qualified Codes: I50.23 - Acute on chronic systolic ( congestive) heart failure MILTON OJEDA MD June 17, 2016 10:27
[2016-06-17 10:35] LABS: ALBUMIN 3.5 g/dL (3.4-5.0); CALCIUM 8.8 mg/dL (8.5-10.1); CREATININE 0.8 mg/dL (0.6-1.0); GFR 67.8
[2016-06-17 10:44] LABS: TOTAL BILIRUBIN 1.6 mg/dL (0.2-1.0); TOTAL PROTEIN 6.5 g/dL (6.4-8.2)
[2016-06-17 10:45] LABS: DIRECT BILIRUBIN 0.4 mg/dL (0.0-0.2)
[2016-06-17] MEDS ORDERED: FUROSEMIDE 20 MG/2 ML VIAL. IVP ONE (10:45)
[2016-06-17] MEDS ORDERED: ONDANSETRON PF 4 MG/2 ML VIAL. IV PRN (10:45)
[2016-06-17] MEDS ORDERED: MORPHINE SULFATE 2 MG/ML DISP.SYRIN. IV PRN (10:45)
[2016-06-17] MEDS ORDERED: NITROGLYCERIN SUBLINGUAL 0.4 MG BOTTLE OF 25. SL PRN (10:45)
[2016-06-17 12:16] VITALS: BP 148/77
[2016-06-17] MEDS ORDERED: FUROSEMIDE 40 MG/4 ML VIAL. IVP ONE (14:00)
--- NOTE | 2016-06-17 14:24 | PDOC2 ---
CONSULT Date of Consult Date of Consult DATE: 06/17/16 TIME: 14:17 Reason for Consult Reason for Consult: Edema Referring Physician Referring Physician: Dr. Oleary Identification/Chief Complaint Chief Complaint Dizziness and edema History of Present Illness Reason for Visit: His patient is a very pleasant 85-year-old lady that has a known history of chronic CHF and multiple admissions to this institution. She has hypertension and a recent CVA. The patient was at home when she started complaining of being dizzy with things spinning around feeling very weak and that for the past 2 days her legs have been swollen. She's had mild dyspnea and some chest tightness. No falls, no loss of consciousness. At the time that I examined her she denies having any chest pains, she denies having any significant shortness of breath. The patient is very weak and has a poor balance. Past Medical History Cardiovascular: CHF, HTN, Hyperlipidemia GI: Other Endocrine: Hypothyroidism, Other Past Surgical History Past Surgical History: Pacemaker, Cataract Removal, Hernia Repair Family History Family History: Hypertension Current Problem List Problem List Problems Medical Problems: (1) Chest pain Status: Acute (2) CHF (congestive heart failure) Status: Acute (3) SOBOE (shortness of breath on exertion) Status: Acute Current Medications Current Medications Current Medications Furosemide (Lasix) 20 mg 1X ONCE IVP Last administered on 06/17/16t 10:52; Start 06/17/16 at 10:45; Stop 06/17/16 at 10:46; Status DC Ondansetron HCl (Zofran) 4 mg PRN Q8HRS PRN IV NAUSEA/VOMITING; Start 06/17/16 at 10:45; Stop 06/18/16 at 10:44 Morphine Sulfate 2 mg PRN Q2HR PRN IV PAIN; Start 06/17/16 at 10:45; Stop 06/18 at 10:44 Nitroglycerin (Nitrostat) 0.4 mg PRN Q5MIN PRN SL CHEST PAIN; Start 06/17/16 at 10:45; Stop 06/18/16 at 10:44 Furosemide (Lasix) 40 mg 1X ONCE IVP ; Start 06/17/16 at 14:00; Stop 06/17/16 at 14:03; Status DC Aspirin (Ecotrin) 325 mg DAILYWBKFT PO ; Start 06/18/16 at 08:00 Diazepam (Valium) 2 mg BID PO ; Start 06/17/16 at 21:00 Furosemide (Lasix) 20 mg DAILY PO ; Start 06/18/16 at 09:00 Hydralazine HCl (Apresoline) 50 mg TID PO ; Start 06/17/16 at 21:00 Levothyroxine Sodium (Synthroid) 125 mcg DAILY07 PO ; Start 06/18/16 at 09:00 Lisinopril (Prinivil) 20 mg DAILY PO ; Start 06/18/16 at 09:00 Simvastatin (Zocor) 20 mg QHS PO ; Start 06/17/16 at 21:00 Carvedilol (Coreg) 25 mg BIDWMEALS PO ; Start 06/17/16 at 17:00 Potassium Chloride (Klor-Con) 20 meq BIDWMEALS PO ; Start 06/17/16 at 17:00 Active Scripts Active Valium (Diazepam) 2 Mg Tablet 2 Mg PO BID Aspirin Ec (Aspirin) 325 Mg Tablet.dr 325 Mg PO DAILYWBKFT 30 Days Coreg (Carvedilol) 25 Mg Tablet 25 Mg PO BIDWMEALS Reported Potassium Chloride 10 Meq Tablet.er 20 Meq PO BID Lasix (Furosemide) 20 Mg Tablet 1 Tab PO DAILY Levothyroxine Sodium 125 Mcg Tablet 1 Tab PO DAILY Simvastatin 20 Mg Tablet 1 Tab PO QHS Lisinopril 20 Mg Tablet 1 Tab PO DAILY Hydralazine Hcl 50 Mg Tablet 1 Tab PO TID Allergies Allergies: Coded Allergies: No Known Drug Allergies (Unverified , 11/24/13) Physical Exam Physical Exam H EENT pupils are reactive, full extraocular protuberant. No nystagmus. Oral mucosa well-hydrated. Neck is supple 1 cm JVD. Lungs few crackles no wheezing. Heart regular rate and rhythm S1-S2 1 to 2/6 systolic murmur. Abdomen is soft bowel sounds are present. Extremities 2+ pitting edema. Vitals VITALS Vital Signs Date Time Temp Pulse Resp B/P (MAP) Pulse Ox O2 Delivery O2 Flow Rate FiO2 06/17/16 12:16 97.8 72 18 148/77 (100) 98 Room Air 97.8 Labs Labs Laboratory Tests Test 06/17/16 09:25 06/17/16 09:45 Urine Collection Type Void Urine Color Yellow Urine Clarity Clear Urine pH 5.5 Urine Specific [place] 1.020 Urine Protein Negative mg/dL (NEG-TRACE) Urine Glucose (UA) Negative mg/dL (NEG) Urine Ketones (Stick) Negative mg/dL (NEG) Urine Blood Negative (NEG) Urine Nitrite Negative (NEG) Urine Bilirubin Small (NEG) Urine Urobilinogen Dipstick 1.0 mg/dL (0.2 mg/dL) Urine Leukocyte Esterase Trace (NEG) Urine RBC Rare /HPF (0-2) Urine WBC 1-4 /HPF (0-4) Urine Squamous Epithelial Cells Few /LPF Urine Bacteria Few /HPF (0-FEW) Urine Mucus Mod /LPF White Blood Count 6.3 x10^3/uL (4.0-11.0) Red Blood Count 3.35 x10^6/uL (3.50-5.40) Hemoglobin 10.7 g/dL (12.0-15.5) Hematocrit 31.3 % (36.0-47.0) Mean Corpuscular Volume 93 fL (79-100) Mean Corpuscular Hemoglobin 32 pg (25-35) Mean Corpuscular Hemoglobin Concent 34 g/dL (31-37) Red Cell Distribution Width 14.8 % (11.5-14.5) Platelet Count 255 x10^3/uL (140-400) Neutrophils (%) (Auto) 79 % (31-73) Lymphocytes (%) (Auto) 12 % (24-48) Monocytes (%) (Auto) 6 % (0-9) Eosinophils (%) (Auto) 2 % (0-3) Basophils (%) (Auto) 1 % (0-3) Neutrophils # (Auto) 5.0 x10^3uL (1.8-7.7) Lymphocytes # (Auto) 0.8 x10^3/uL (1.0-4.8) Monocytes # (Auto) 0.4 x10^3/uL (0.0-1.1) Eosinophils # (Auto) 0.1 x10^3/uL (0.0-0.7) Basophils # (Auto) 0.0 x10^3/uL (0.0-0.2) Sodium Level 135 mmol/L (136-145) Potassium Level 4.0 mmol/L (3.5-5.1) Chloride Level 100 mmol/L (98-107) Carbon Dioxide Level 23 mmol/L (21-32) Anion Gap 12 (6-14) Blood Urea Nitrogen 21 mg/dL (7-20) Creatinine 0.8 mg/dL (0.6-1.0) Estimated GFR (Cockcroft-Gault) 67.8 Glucose Level 116 mg/dL (70-99) Lactic Acid Level 1.3 mmol/L (0.4-2.0) Calcium Level 8.8 mg/dL (8.5-10.1) Total Bilirubin 1.6 mg/dL (0.2-1.0) Direct Bilirubin 0.4 mg/dL (0.0-0.2) Aspartate Amino Transf (AST/SGOT) 18 U/L (15-37) Alanine Aminotransferase (ALT/SGPT) 17 U/L (14-59) Alkaline Phosphatase 57 U/L (46-116) Troponin I Quantitative < 0.017 ng/mL (0.000-0.055) GV-Sst-A-Type Natriuretic Peptide 30697 pg/mL (0-449) Total Protein 6.5 g/dL (6.4-8.2) Albumin 3.5 g/dL (3.4-5.0) Lipase 273 U/L (73-393) Laboratory Tests Test 06/17/16 09:25 06/17/16 09:45 Urine Collection Type Void Urine Color Yellow Urine Clarity Clear Urine pH 5.5 Urine Specific [place] 1.020 Urine Protein Negative mg/dL (NEG-TRACE) Urine Glucose (UA) Negative mg/dL (NEG) Urine Ketones (Stick) Negative mg/dL (NEG) Urine Blood Negative (NEG) Urine Nitrite Negative (NEG) Urine Bilirubin Small (NEG) Urine Urobilinogen Dipstick 1.0 mg/dL (0.2 mg/dL) Urine Leukocyte Esterase Trace (NEG) Urine RBC Rare /HPF (0-2) Urine WBC 1-4 /HPF (0-4) Urine Squamous Epithelial Cells Few /LPF Urine Bacteria Few /HPF (0-FEW) Urine Mucus Mod /LPF White Blood Count 6.3 x10^3/uL (4.0-11.0) Red Blood Count 3.35 x10^6/uL (3.50-5.40) Hemoglobin 10.7 g/dL (12.0-15.5) Hematocrit 31.3 % (36.0-47.0) Mean Corpuscular Volume 93 fL (79-100) Mean Corpuscular Hemoglobin 32 pg (25-35) Mean Corpuscular Hemoglobin Concent 34 g/dL (31-37) Red Cell Distribution Width 14.8 % (11.5-14.5) Platelet Count 255 x10^3/uL (140-400) Neutrophils (%) (Auto) 79 % (31-73) Lymphocytes (%) (Auto) 12 % (24-48) Monocytes (%) (Auto) 6 % (0-9) Eosinophils (%) (Auto) 2 % (0-3) Basophils (%) (Auto) 1 % (0-3) Neutrophils # (Auto) 5.0 x10^3uL (1.8-7.7) Lymphocytes # (Auto) 0.8 x10^3/uL (1.0-4.8) Monocytes # (Auto) 0.4 x10^3/uL (0.0-1.1) Eosinophils # (Auto) 0.1 x10^3/uL (0.0-0.7) Basophils # (Auto) 0.0 x10^3/uL (0.0-0.2) Sodium Level 135 mmol/L (136-145) Potassium Level 4.0 mmol/L (3.5-5.1) Chloride Level 100 mmol/L (98-107) Carbon Dioxide Level 23 mmol/L (21-32) Anion Gap 12 (6-14) Blood Urea Nitrogen 21 mg/dL (7-20) Creatinine 0.8 mg/dL (0.6-1.0) Estimated GFR (Cockcroft-Gault) 67.8 Glucose Level 116 mg/dL (70-99) Lactic Acid Level 1.3 mmol/L (0.4-2.0) Calcium Level 8.8 mg/dL (8.5-10.1) Total Bilirubin 1.6 mg/dL (0.2-1.0) Direct Bilirubin 0.4 mg/dL (0.0-0.2) Aspartate Amino Transf (AST/SGOT) 18 U/L (15-37) Alanine Aminotransferase (ALT/SGPT) 17 U/L (14-59) Alkaline Phosphatase 57 U/L (46-116) Troponin I Quantitative < 0.017 ng/mL (0.000-0.055) YQ-Zyv-W-Type Natriuretic Peptide 29285 pg/mL (0-449) Total Protein 6.5 g/dL (6.4-8.2) Albumin 3.5 g/dL (3.4-5.0) Lipase 273 U/L (73-393) Assessment/Plan Assessment/Plan Patient comes in with dizziness that may be secondary to positional vertigo. She has chronic CHF and is having some leg edema that is chronic. I would like to give her some IV Lasix and see how she responds. Thank you very much for asking me to participate in the care of this patient. MARYELLEN DUONG MD June 17, 2016 14:24
[2016-06-17 15:00] VITALS: BP 142/74
--- NOTE | 2016-06-17 15:18 | RAD ---
Exam performed: Bilateral lower extremity venous Doppler. Clinical Indication: CHF, pleural effusion, chronic ankle edema Date of Service:06/17/16 Comparison : None available Discussion: Multiple longitudinal and transverse high resolution real-time images of the venous system of bilateral lower extremity were obtained with color and Doppler sampling and spectral analysis. The common femoral, superficial femoral, popliteal and proximal calf veins are all patent and demonstrate normal flow and compressibility. Normal respiratory phasicity and augmentation is present. Impression: Normal color duplex ultrasound of the venous system of bilateral lower extremity.
[2016-06-17] MEDS ORDERED: ACETAMINOPHEN 325 MG TABLET. PO PRN (17:45)
[2016-06-17] MEDS: POTASSIUM CHLORIDE 20 MEQ TABLET.ER. PO SCH (17:53)
[2016-06-17] MEDS: CARVEDILOL 12.5 MG TABLET. PO SCH (17:54)
[2016-06-17 19:05] VITALS: BP 128/65
[2016-06-17] MEDS: SIMVASTATIN 20 MG TABLET PO SCH (21:06)
[2016-06-17] MEDS: diazePAM 2 MG TABLET PO SCH (21:06)
[2016-06-17 23:28] VITALS: BP 127/53
[2016-06-18 03:50] VITALS: BP 124/55
[2016-06-18 05:25] LABS: BASO # 0.1 x10^3/uL (0.0-0.2); BASO % 1 % (0-3); EOS % 1 % (0-3); HEMATOCRIT 30.8 % (36.0-47.0); HEMOGLOBIN 10.2 g/dL (12.0-15.5); LYMPH # 1.2 x10^3/uL (1.0-4.8); LYMPH % 17 % (24-48); MEAN CORPUSCULAR HEMOGLOBIN 32 pg (25-35); MEAN CORPUSCULAR HGB CONC 33 g/dL (31-37); MEAN CORPUSCULAR VOLUME 95 fL (79-100); MONO % 7 % (0-9); NEUT % 74 % (31-73); PLATELET COUNT 239 x10^3/uL (140-400); RED BLOOD COUNT 3.23 x10^6/uL (3.50-5.40); RED CELL DISTRIBUTION WIDTH 14.9 % (11.5-14.5)
[2016-06-18 05:31] LABS: CALCIUM 8.5 mg/dL (8.5-10.1); CREATININE 0.9 mg/dL (0.6-1.0); GFR 59.2; POTASSIUM 3.2 mmol/L (3.5-5.1)
[2016-06-18 07:45] VITALS: BP 133/70
[2016-06-18] MEDS ORDERED: MORPHINE SULFATE 2 MG/ML DISP.SYRIN. IV PRN (08:15)
[2016-06-18] MEDS ORDERED: NITROGLYCERIN SUBLINGUAL 0.4 MG BOTTLE OF 25. SL PRN (08:15)
[2016-06-18] MEDS ORDERED: ONDANSETRON PF 4 MG/2 ML VIAL. IV PRN (08:15)
[2016-06-18] MEDS: ASPIRIN ENTERIC COATED 325 MG TABLET.DR. PO SCH (08:32)
[2016-06-18] MEDS: CARVEDILOL 12.5 MG TABLET. PO SCH ×2 (08:32→16:46)
[2016-06-18] MEDS: POTASSIUM CHLORIDE 20 MEQ TABLET.ER. PO SCH ×2 (08:32→16:46)
[2016-06-18] MEDS: FUROSEMIDE 20 MG TABLET PO SCH (08:33)
[2016-06-18] MEDS: diazePAM 2 MG TABLET PO SCH ×2 (08:33→20:45)
[2016-06-18] MEDS: LISINOPRIL 20 MG TABLET PO SCH (08:33)
[2016-06-18] MEDS: LEVOTHYROXINE 125 MCG TABLET PO SCH (08:33)
--- NOTE | 2016-06-18 08:35 | PDOC1 ---
JIA BENOIT NUCLEAR WORKER TECHNICIAN 06/18/16 0835: HISTORY AND PHYSICAL Chief Complaint Chief Complaint This 85 year old [place] female has been admitted with a chief complaint of chest pain and dizziness. Daughter presented and was electrical prospecting operator. She has had several admissions recently regarding questionable CVA that was ruled out x 2 separate occasions. Yesterday at 5am she developed dizziness and chest pain that was intermittent, ant chest and non radiating. There were no accompanying symptoms. She noted acute onset lower leg edema over 24 hours and presented to the ED. An CXR was + vascular congestion, BNP 12396, and there was bilateral edema lower legs. Venous doppler was negative DVT bilaterally. EKG was paced and troponin negative. She has a history of severe heart failure with EF 21% and valvular insufficiency AV and TR. She received a total of 60mg IV Lasix yesterday. He K went from 4.0 to 3.2. Potassium will be replaced. Regarding the dizziness: orthostatics the last admission were negative. She is admitted to the [facility] and Dr. Sandoval has been consulted. Problem List Problems Medical Problems: (1) Chest pain Status: Acute (2) CHF (congestive heart failure) Status: Acute (3) SOBOE (shortness of breath on exertion) Status: Acute Past Medical History Cardiovascular: CHF (EF 21% 05/23/16 severe hypokiness LV), HTN, Hyperlipidemia , Valve insufficiency (mild to mod AR, mod Tr ), Pulmonary hypertension (severe ) CENTRAL NERVOUS SYSTEM: Other (recurrent dizziness ) GI: Other (HH) Heme/Onc: Anemia NOS (chronic ) Psych: Anxiety Renal/: Chronic renal insuff (CKD II ) Endocrine: Hypothyroidism Past Surgical History Past Surgical History: Pacemaker, Cataract Removal, Hernia Repair Past Family History Family History: Hypertension Review of Symptoms Review of Symptoms A 14 point ROS was completed with the following noted as positive: per HPI Other systems reviewed and negative. Medications Medications reviewed and reconciled Allergy Allergies Coded Allergies Type Severity Reaction Last Updated Verified No Known Drug Allergies 11/24/13 No Physical Exam Physical Exam General appearance - alert,well appearing, and in no distress Mental Status - alert, oriented to person, place, and time, affect appropriate to mood Head - normal Chest - clear to auscultation, no wheezes, rales or rhonchi Heart - S1 and S2 normal, + murmur Abdomen - soft, nontender, nondistended, obese, BS + Neurological - no acute focal neurological deficits Musculoskeletal - no muscular tenderness noted Extremities - 2+ edema Skin - warm and dry VTE Prophylaxis Ordered VTE Prophylaxis Devices: Yes VTE Pharmacological Prophylaxi: No Assessment Labs Laboratory Tests Test 06/17/16 09:25 06/17/16 09:45 06/17/16 16:40 06/17/16 22:45 Urine Collection Type Void Urine Color Yellow Urine Clarity Clear Urine pH 5.5 Urine Specific [place] 1.020 Urine Protein Negative mg/dL (NEG-TRACE) Urine Glucose (UA) Negative mg/dL (NEG) Urine Ketones (Stick) Negative mg/dL (NEG) Urine Blood Negative (NEG) Urine Nitrite Negative (NEG) Urine Bilirubin Small (NEG) Urine Urobilinogen Dipstick 1.0 mg/dL (0.2 mg/dL) Urine Leukocyte Esterase Trace (NEG) Urine RBC Rare /HPF (0-2) Urine WBC 1-4 /HPF (0-4) Urine Squamous Epithelial Cells Few /LPF Urine Bacteria Few /HPF (0-FEW) Urine Mucus Mod /LPF White Blood Count 6.3 x10^3/uL (4.0-11.0) Red Blood Count 3.35 x10^6/uL (3.50-5.40) Hemoglobin 10.7 g/dL (12.0-15.5) Hematocrit 31.3 % (36.0-47.0) Mean Corpuscular Volume 93 fL (79-100) Mean Corpuscular Hemoglobin 32 pg (25-35) Mean Corpuscular Hemoglobin Concent 34 g/dL (31-37) Red Cell Distribution Width 14.8 % (11.5-14.5) Platelet Count 255 x10^3/uL (140-400) Neutrophils (%) (Auto) 79 % (31-73) Lymphocytes (%) (Auto) 12 % (24-48) Monocytes (%) (Auto) 6 % (0-9) Eosinophils (%) (Auto) 2 % (0-3) Basophils (%) (Auto) 1 % (0-3) Neutrophils # (Auto) 5.0 x10^3uL (1.8-7.7) Lymphocytes # (Auto) 0.8 x10^3/uL (1.0-4.8) Monocytes # (Auto) 0.4 x10^3/uL (0.0-1.1) Eosinophils # (Auto) 0.1 x10^3/uL (0.0-0.7) Basophils # (Auto) 0.0 x10^3/uL (0.0-0.2) Sodium Level 135 mmol/L (136-145) Potassium Level 4.0 mmol/L (3.5-5.1) Chloride Level 100 mmol/L (98-107) Carbon Dioxide Level 23 mmol/L (21-32) Anion Gap 12 (6-14) Blood Urea Nitrogen 21 mg/dL (7-20) Creatinine 0.8 mg/dL (0.6-1.0) Estimated GFR (Cockcroft-Gault) 67.8 Glucose Level 116 mg/dL (70-99) Lactic Acid Level 1.3 mmol/L (0.4-2.0) Calcium Level 8.8 mg/dL (8.5-10.1) Total Bilirubin 1.6 mg/dL (0.2-1.0) Direct Bilirubin 0.4 mg/dL (0.0-0.2) Aspartate Amino Transf (AST/SGOT) 18 U/L (15-37) Alanine Aminotransferase (ALT/SGPT) 17 U/L (14-59) Alkaline Phosphatase 57 U/L (46-116) Troponin I Quantitative < 0.017 ng/mL (0.000-0.055) < 0.017 ng/mL (0.000-0.055) < 0.017 ng/mL (0.000-0.055) UJ-Svm-D-Type Natriuretic Peptide 81348 pg/mL (0-449) Total Protein 6.5 g/dL (6.4-8.2) Albumin 3.5 g/dL (3.4-5.0) Lipase 273 U/L (73-393) Test 06/18/16 04:25 White Blood Count 7.0 x10^3/uL (4.0-11.0) Red Blood Count 3.23 x10^6/uL (3.50-5.40) Hemoglobin 10.2 g/dL (12.0-15.5) Hematocrit 30.8 % (36.0-47.0) Mean Corpuscular Volume 95 fL (79-100) Mean Corpuscular Hemoglobin 32 pg (25-35) Mean Corpuscular Hemoglobin Concent 33 g/dL (31-37) Red Cell Distribution Width 14.9 % (11.5-14.5) Platelet Count 239 x10^3/uL (140-400) Neutrophils (%) (Auto) 74 % (31-73) Lymphocytes (%) (Auto) 17 % (24-48) Monocytes (%) (Auto) 7 % (0-9) Eosinophils (%) (Auto) 1 % (0-3) Basophils (%) (Auto) 1 % (0-3) Neutrophils # (Auto) 5.2 x10^3uL (1.8-7.7) Lymphocytes # (Auto) 1.2 x10^3/uL (1.0-4.8) Monocytes # (Auto) 0.5 x10^3/uL (0.0-1.1) Eosinophils # (Auto) 0.1 x10^3/uL (0.0-0.7) Basophils # (Auto) 0.1 x10^3/uL (0.0-0.2) Sodium Level 134 mmol/L (136-145) Potassium Level 3.2 mmol/L (3.5-5.1) Chloride Level 98 mmol/L (98-107) Carbon Dioxide Level 24 mmol/L (21-32) Anion Gap 12 (6-14) Blood Urea Nitrogen 24 mg/dL (7-20) Creatinine 0.9 mg/dL (0.6-1.0) Estimated GFR (Cockcroft-Gault) 59.2 Glucose Level 138 mg/dL (70-99) Calcium Level 8.5 mg/dL (8.5-10.1) Laboratory Tests Test 06/17/16 09:25 06/17/16 09:45 06/17/16 16:40 06/17/16 22:45 Urine Collection Type Void Urine Color Yellow Urine Clarity Clear Urine pH 5.5 Urine Specific [place] 1.020 Urine Protein Negative mg/dL (NEG-TRACE) Urine Glucose (UA) Negative mg/dL (NEG) Urine Ketones (Stick) Negative mg/dL (NEG) Urine Blood Negative (NEG) Urine Nitrite Negative (NEG) Urine Bilirubin Small (NEG) Urine Urobilinogen Dipstick 1.0 mg/dL (0.2 mg/dL) Urine Leukocyte Esterase Trace (NEG) Urine RBC Rare /HPF (0-2) Urine WBC 1-4 /HPF (0-4) Urine Squamous Epithelial Cells Few /LPF Urine Bacteria Few /HPF (0-FEW) Urine Mucus Mod /LPF White Blood Count 6.3 x10^3/uL (4.0-11.0) Red Blood Count 3.35 x10^6/uL (3.50-5.40) Hemoglobin 10.7 g/dL (12.0-15.5) Hematocrit 31.3 % (36.0-47.0) Mean Corpuscular Volume 93 fL (79-100) Mean Corpuscular Hemoglobin 32 pg (25-35) Mean Corpuscular Hemoglobin Concent 34 g/dL (31-37) Red Cell Distribution Width 14.8 % (11.5-14.5) Platelet Count 255 x10^3/uL (140-400) Neutrophils (%) (Auto) 79 % (31-73) Lymphocytes (%) (Auto) 12 % (24-48) Monocytes (%) (Auto) 6 % (0-9) Eosinophils (%) (Auto) 2 % (0-3) Basophils (%) (Auto) 1 % (0-3) Neutrophils # (Auto) 5.0 x10^3uL (1.8-7.7) Lymphocytes # (Auto) 0.8 x10^3/uL (1.0-4.8) Monocytes # (Auto) 0.4 x10^3/uL (0.0-1.1) Eosinophils # (Auto) 0.1 x10^3/uL (0.0-0.7) Basophils # (Auto) 0.0 x10^3/uL (0.0-0.2) Sodium Level 135 mmol/L (136-145) Potassium Level 4.0 mmol/L (3.5-5.1) Chloride Level 100 mmol/L (98-107) Carbon Dioxide Level 23 mmol/L (21-32) Anion Gap 12 (6-14) Blood Urea Nitrogen 21 mg/dL (7-20) Creatinine 0.8 mg/dL (0.6-1.0) Estimated GFR (Cockcroft-Gault) 67.8 Glucose Level 116 mg/dL (70-99) Lactic Acid Level 1.3 mmol/L (0.4-2.0) Calcium Level 8.8 mg/dL (8.5-10.1) Total Bilirubin 1.6 mg/dL (0.2-1.0) Direct Bilirubin 0.4 mg/dL (0.0-0.2) Aspartate Amino Transf (AST/SGOT) 18 U/L (15-37) Alanine Aminotransferase (ALT/SGPT) 17 U/L (14-59) Alkaline Phosphatase 57 U/L (46-116) Troponin I Quantitative < 0.017 ng/mL (0.000-0.055) < 0.017 ng/mL (0.000-0.055) < 0.017 ng/mL (0.000-0.055) IS-Lel-M-Type Natriuretic Peptide 72387 pg/mL (0-449) Total Protein 6.5 g/dL (6.4-8.2) Albumin 3.5 g/dL (3.4-5.0) Lipase 273 U/L (73-393) Test 06/18/16 04:25 White Blood Count 7.0 x10^3/uL (4.0-11.0) Red Blood Count 3.23 x10^6/uL (3.50-5.40) Hemoglobin 10.2 g/dL (12.0-15.5) Hematocrit 30.8 % (36.0-47.0) Mean Corpuscular Volume 95 fL (79-100) Mean Corpuscular Hemoglobin 32 pg (25-35) Mean Corpuscular Hemoglobin Concent 33 g/dL (31-37) Red Cell Distribution Width 14.9 % (11.5-14.5) Platelet Count 239 x10^3/uL (140-400) Neutrophils (%) (Auto) 74 % (31-73) Lymphocytes (%) (Auto) 17 % (24-48) Monocytes (%) (Auto) 7 % (0-9) Eosinophils (%) (Auto) 1 % (0-3) Basophils (%) (Auto) 1 % (0-3) Neutrophils # (Auto) 5.2 x10^3uL (1.8-7.7) Lymphocytes # (Auto) 1.2 x10^3/uL (1.0-4.8) Monocytes # (Auto) 0.5 x10^3/uL (0.0-1.1) Eosinophils # (Auto) 0.1 x10^3/uL (0.0-0.7) Basophils # (Auto) 0.1 x10^3/uL (0.0-0.2) Sodium Level 134 mmol/L (136-145) Potassium Level 3.2 mmol/L (3.5-5.1) Chloride Level 98 mmol/L (98-107) Carbon Dioxide Level 24 mmol/L (21-32) Anion Gap 12 (6-14) Blood Urea Nitrogen 24 mg/dL (7-20) Creatinine 0.9 mg/dL (0.6-1.0) Estimated GFR (Cockcroft-Gault) 59.2 Glucose Level 138 mg/dL (70-99) Calcium Level 8.5 mg/dL (8.5-10.1) Plan Plan IMPRESSION: 1`. chest pain 2. A/C CHF systolic EF 21% diastolic dysfunction 3. HTN 4. hyperlipidemia 5. PPM 6. hypokalemia 7. CKD II 8. dizziness 9. anxiety 10. HH 11. anemia CD 12. severe pulmonary HTN 13. hypothyroid PLAN: Chest pain EKG paced troponin negative ?acute on chronic CHF vs anxiety cardiology consulted ascites noted CXR at admission CHF Total Lasix 60mg IV 06/17 CXR pending 06/18 IO Daily weight Lasix 20mg po home dose currently. CKD II Admit BUN 21 06/18 24 Cr 0.8 0.9 K 4.0 3.2 Replace K 20 meq x 1 today-recheck 14am (currently home 20 bid) Dizziness ?TIA-ASA 325 mg daily recent orthostatic negative CVA-[address] change, negative CT head 2 days later no MRI due to PPM anemia CD Admit 10.7 06/18 10.2 monitor DVT/GI prophylaxis SCD/CAROL PPI For more details regarding further plans, please refer to the orders. MESHA CASTILLO MD 06/18/16 1131: HISTORY AND PHYSICAL Plan Plan D/w patient,family- Na,fluid restriction d/w them. Hypokalemia- replace. The patient was seen and examined by me. Chart reviewed and plan of care formulated. Discussed with, reviewed and agree with COLLECTION ADMINISTRATOR's notes, plan of care and orders with modifications as necessary. For more details regarding further plans, please refer to the orders. JIA BENOIT APRN June 18, 2016 08:35 MESHA CASTILLO MD June 18, 2016 11:31
[2016-06-18] MEDS: PANTOPRAZOLE 40 MG TABLET.DR. PO SCH (08:40)
[2016-06-18] MEDS ORDERED: POTASSIUM CHLORIDE 20 MEQ TABLET.ER. PO ONE ×2 (09:00→13:00)
--- NOTE | 2016-06-18 10:20 | RAD ---
Examination: 2 views of the chest History: History of congestive heart failure. Comparison: 06/25/2016 Findings: Left-sided cardiac pacer is unchanged. Mild cardiomegaly. Mild prominent appearing bilateral interstitial lung markings are unchanged compared to prior exam. Impression: Unchanged mild congestive changes.
[2016-06-18 11:00] VITALS: BP 100/49
--- NOTE | 2016-06-18 14:08 | ACF ---
Admission Forms Criteria Admission Criteria Met?: Pending PORFIRIO GUAJARDO June 18, 2016 14:08 MILTON OJEDA MD Jul 09, 2016 06:44
[2016-06-18 15:00] VITALS: BP 113/63
--- NOTE | 2016-06-18 15:37 | PDOC ---
PROGRESS NOTES Subjective Subjective Patient feels better today. Objective Objective Vital Signs Date Time Temp Pulse Resp B/P (MAP) Pulse Ox O2 Delivery O2 Flow Rate FiO2 06/18/16 14:07 67 103/53 06/18/16 11:00 97.9 18 96 Room Air 97.9 Intake and Output 06/18/16 07:00 Intake Total 580 ml Balance 580 ml Intake Oral 580 ml # Voids 6 Physical Exam Physical Exam No significant changes in cardiac exam Assessment Assessment Patient seems to be doing better but her potassium is still too low. Agree with potassium replacement. Home soon Comment Review of Relevant I have reviewed the following items bonny (where applicable) has been applied. Labs Laboratory Tests Test 06/17/16 09:25 06/17/16 09:45 06/17/16 16:40 06/17/16 22:45 Urine Collection Type Void Urine Color Yellow Urine Clarity Clear Urine pH 5.5 Urine Specific [place] 1.020 Urine Protein Negative mg/dL (NEG-TRACE) Urine Glucose (UA) Negative mg/dL (NEG) Urine Ketones (Stick) Negative mg/dL (NEG) Urine Blood Negative (NEG) Urine Nitrite Negative (NEG) Urine Bilirubin Small (NEG) Urine Urobilinogen Dipstick 1.0 mg/dL (0.2 mg/dL) Urine Leukocyte Esterase Trace (NEG) Urine RBC Rare /HPF (0-2) Urine WBC 1-4 /HPF (0-4) Urine Squamous Epithelial Cells Few /LPF Urine Bacteria Few /HPF (0-FEW) Urine Mucus Mod /LPF White Blood Count 6.3 x10^3/uL (4.0-11.0) Red Blood Count 3.35 x10^6/uL (3.50-5.40) Hemoglobin 10.7 g/dL (12.0-15.5) Hematocrit 31.3 % (36.0-47.0) Mean Corpuscular Volume 93 fL (79-100) Mean Corpuscular Hemoglobin 32 pg (25-35) Mean Corpuscular Hemoglobin Concent 34 g/dL (31-37) Red Cell Distribution Width 14.8 % (11.5-14.5) Platelet Count 255 x10^3/uL (140-400) Neutrophils (%) (Auto) 79 % (31-73) Lymphocytes (%) (Auto) 12 % (24-48) Monocytes (%) (Auto) 6 % (0-9) Eosinophils (%) (Auto) 2 % (0-3) Basophils (%) (Auto) 1 % (0-3) Neutrophils # (Auto) 5.0 x10^3uL (1.8-7.7) Lymphocytes # (Auto) 0.8 x10^3/uL (1.0-4.8) Monocytes # (Auto) 0.4 x10^3/uL (0.0-1.1) Eosinophils # (Auto) 0.1 x10^3/uL (0.0-0.7) Basophils # (Auto) 0.0 x10^3/uL (0.0-0.2) Sodium Level 135 mmol/L (136-145) Potassium Level 4.0 mmol/L (3.5-5.1) Chloride Level 100 mmol/L (98-107) Carbon Dioxide Level 23 mmol/L (21-32) Anion Gap 12 (6-14) Blood Urea Nitrogen 21 mg/dL (7-20) Creatinine 0.8 mg/dL (0.6-1.0) Estimated GFR (Cockcroft-Gault) 67.8 Glucose Level 116 mg/dL (70-99) Lactic Acid Level 1.3 mmol/L (0.4-2.0) Calcium Level 8.8 mg/dL (8.5-10.1) Total Bilirubin 1.6 mg/dL (0.2-1.0) Direct Bilirubin 0.4 mg/dL (0.0-0.2) Aspartate Amino Transf (AST/SGOT) 18 U/L (15-37) Alanine Aminotransferase (ALT/SGPT) 17 U/L (14-59) Alkaline Phosphatase 57 U/L (46-116) Troponin I Quantitative < 0.017 ng/mL (0.000-0.055) < 0.017 ng/mL (0.000-0.055) < 0.017 ng/mL (0.000-0.055) UY-Zww-C-Type Natriuretic Peptide 71033 pg/mL (0-449) Total Protein 6.5 g/dL (6.4-8.2) Albumin 3.5 g/dL (3.4-5.0) Lipase 273 U/L (73-393) Test 06/18/16 04:25 White Blood Count 7.0 x10^3/uL (4.0-11.0) Red Blood Count 3.23 x10^6/uL (3.50-5.40) Hemoglobin 10.2 g/dL (12.0-15.5) Hematocrit 30.8 % (36.0-47.0) Mean Corpuscular Volume 95 fL (79-100) Mean Corpuscular Hemoglobin 32 pg (25-35) Mean Corpuscular Hemoglobin Concent 33 g/dL (31-37) Red Cell Distribution Width 14.9 % (11.5-14.5) Platelet Count 239 x10^3/uL (140-400) Neutrophils (%) (Auto) 74 % (31-73) Lymphocytes (%) (Auto) 17 % (24-48) Monocytes (%) (Auto) 7 % (0-9) Eosinophils (%) (Auto) 1 % (0-3) Basophils (%) (Auto) 1 % (0-3) Neutrophils # (Auto) 5.2 x10^3uL (1.8-7.7) Lymphocytes # (Auto) 1.2 x10^3/uL (1.0-4.8) Monocytes # (Auto) 0.5 x10^3/uL (0.0-1.1) Eosinophils # (Auto) 0.1 x10^3/uL (0.0-0.7) Basophils # (Auto) 0.1 x10^3/uL (0.0-0.2) Sodium Level 134 mmol/L (136-145) Potassium Level 3.2 mmol/L (3.5-5.1) Chloride Level 98 mmol/L (98-107) Carbon Dioxide Level 24 mmol/L (21-32) Anion Gap 12 (6-14) Blood Urea Nitrogen 24 mg/dL (7-20) Creatinine 0.9 mg/dL (0.6-1.0) Estimated GFR (Cockcroft-Gault) 59.2 Glucose Level 138 mg/dL (70-99) Calcium Level 8.5 mg/dL (8.5-10.1) Laboratory Tests Test 06/17/16 16:40 06/17/16 22:45 06/18/16 04:25 Troponin I Quantitative < 0.017 ng/mL (0.000-0.055) < 0.017 ng/mL (0.000-0.055) White Blood Count 7.0 x10^3/uL (4.0-11.0) Red Blood Count 3.23 x10^6/uL (3.50-5.40) Hemoglobin 10.2 g/dL (12.0-15.5) Hematocrit 30.8 % (36.0-47.0) Mean Corpuscular Volume 95 fL (79-100) Mean Corpuscular Hemoglobin 32 pg (25-35) Mean Corpuscular Hemoglobin Concent 33 g/dL (31-37) Red Cell Distribution Width 14.9 % (11.5-14.5) Platelet Count 239 x10^3/uL (140-400) Neutrophils (%) (Auto) 74 % (31-73) Lymphocytes (%) (Auto) 17 % (24-48) Monocytes (%) (Auto) 7 % (0-9) Eosinophils (%) (Auto) 1 % (0-3) Basophils (%) (Auto) 1 % (0-3) Neutrophils # (Auto) 5.2 x10^3uL (1.8-7.7) Lymphocytes # (Auto) 1.2 x10^3/uL (1.0-4.8) Monocytes # (Auto) 0.5 x10^3/uL (0.0-1.1) Eosinophils # (Auto) 0.1 x10^3/uL (0.0-0.7) Basophils # (Auto) 0.1 x10^3/uL (0.0-0.2) Sodium Level 134 mmol/L (136-145) Potassium Level 3.2 mmol/L (3.5-5.1) Chloride Level 98 mmol/L (98-107) Carbon Dioxide Level 24 mmol/L (21-32) Anion Gap 12 (6-14) Blood Urea Nitrogen 24 mg/dL (7-20) Creatinine 0.9 mg/dL (0.6-1.0) Estimated GFR (Cockcroft-Gault) 59.2 Glucose Level 138 mg/dL (70-99) Calcium Level 8.5 mg/dL (8.5-10.1) Medications Current Medications Furosemide (Lasix) 20 mg 1X ONCE IVP Last administered on 5/12/17at 10:52; Start 06/17/16 at 10:45; Stop 06/17/16 at 10:46; Status DC Ondansetron HCl (Zofran) 4 mg PRN Q8HRS PRN IV NAUSEA/VOMITING; Start 06/17/16 at 10:45; Stop 06/18/16 at 08:09; Status DC Morphine Sulfate 2 mg PRN Q2HR PRN IV PAIN; Start 06/17/16 at 10:45; Stop 06/18 at 08:09; Status DC Nitroglycerin (Nitrostat) 0.4 mg PRN Q5MIN PRN SL CHEST PAIN; Start 06/17/16 at 10:45; Stop 06/18/16 at 08:09; Status DC Furosemide (Lasix) 40 mg 1X ONCE IVP Last administered on 06/17/16 15:22; Start 06/17/16 at 14:00; Stop 06/17/16 at 14:03; Status DC Aspirin (Ecotrin) 325 mg DAILYWBKFT PO Last administered on 06/18/16 08:32; Start 06/18/16 at 08:00 Diazepam (Valium) 2 mg BID PO Last administered on 06/18/16 08:33; Start 06/17 at 21:00 Furosemide (Lasix) 20 mg DAILY PO Last administered on 06/18/16 08:33; Start 06/18/16 at 09:00 Hydralazine HCl (Apresoline) 50 mg TID PO Last administered on 06/18/16 14:07 ; Start 06/17/16 at 21:00 Levothyroxine Sodium (Synthroid) 125 mcg DAILY07 PO Last administered on 08:33; Start 06/18/16 at 09:00 Lisinopril (Prinivil) 20 mg DAILY PO Last administered on 06/18/16 08:33; Start 06/18/16 at 09:00 Simvastatin (Zocor) 20 mg QHS PO Last administered on 06/17/16 21:06; Start at 21:00 Carvedilol (Coreg) 25 mg BIDWMEALS PO Last administered on 06/18/16 08:32; Start 06/17/16 at 17:00 Potassium Chloride (Klor-Con) 20 meq BIDWMEALS PO Last administered on 08:32; Start 06/17/16 at 17:00 Acetaminophen (Tylenol) 650 mg PRN Q6HRS PRN PO PAIN Last administered on 17:53; Start 06/17/16 at 17:45 Morphine Sulfate 2 mg PRN Q4HRS PRN IV PAIN; Start 06/18/16 at 08:15 Nitroglycerin (Nitrostat) 0.4 mg PRN Q5MIN PRN SL CHEST PAIN; Start 06/18/16 at 08:15 Ondansetron HCl (Zofran) 4 mg PRN Q8HRS PRN IV NAUSEA/VOMITING; Start 06/18/16 at 08:15 Potassium Chloride (Klor-Con) 20 meq 1X ONCE PO Last administered on 08:40; Start 06/18/16 at 09:00; Stop 06/18/16 at 09:01; Status DC Pantoprazole Sodium (Protonix) 40 mg DAILYAC PO Last administered on 06/18/16 08:40; Start 06/18/16 at 09:00 Potassium Chloride (Klor-Con) 20 meq 1X ONCE PO Last administered on 14:07; Start 06/18/16 at 13:00; Stop 06/18/16 at 13:01; Status DC Active Scripts Active Valium (Diazepam) 2 Mg Tablet 2 Mg PO BID Aspirin Ec (Aspirin) 325 Mg Tablet.dr 325 Mg PO DAILYWBKFT 30 Days Coreg (Carvedilol) 25 Mg Tablet 25 Mg PO BIDWMEALS Reported Potassium Chloride 10 Meq Tablet.er 20 Meq PO BID Lasix (Furosemide) 20 Mg Tablet 1 Tab PO DAILY Levothyroxine Sodium 125 Mcg Tablet 1 Tab PO DAILY Simvastatin 20 Mg Tablet 1 Tab PO QHS Lisinopril 20 Mg Tablet 1 Tab PO DAILY Hydralazine Hcl 50 Mg Tablet 1 Tab PO TID Vitals/I & O Vital Sign - Last 24 Hours 06/17/16 06/17/16 06/17/16 06/17/16 17:54 19:05 20:17 21:06 Temp 97.9 97.9 Pulse 74 73 73 Resp 22 B/P (MAP) 148/77 128/65 (86) 128/65 Pulse Ox 93 O2 Delivery Room Air Room Air 06/17/16 06/18/16 06/18/16 06/18/16 23:28 03:50 07:45 07:53 Temp 97.8 97.7 97.8 97.8 97.7 97.8 Pulse 67 70 68 Resp 23 20 18 B/P (MAP) 127/53 (77) 124/55 (78) 133/70 (91) Pulse Ox 94 97 96 O2 Delivery Room Air Room Air Room Air Room Air 06/18/16 06/18/16 06/18/16 06/18/16 08:32 08:33 08:33 11:00 Temp 97.9 97.9 Pulse 78 78 78 67 Resp 18 B/P (MAP) 133/70 133/70 133/70 100/49 (66) Pulse Ox 96 O2 Delivery Room Air 06/18/16 14:07 Pulse 67 B/P (MAP) 103/53 Intake and Output 06/17/16 06/17/16 06/18/16 15:00 23:00 07:00 Intake Total 480 ml 100 ml Balance 480 ml 100 ml MARYELLEN DUONG MD June 18, 2016 15:37
[2016-06-18 19:55] VITALS: BP 101/49
[2016-06-18] MEDS: SIMVASTATIN 20 MG TABLET PO SCH (20:44)
[2016-06-18 23:30] VITALS: BP 117/52
[2016-06-19 04:00] VITALS: BP 118/52
[2016-06-19 05:36] LABS: BASO % 1 % (0-3); EOS % 3 % (0-3); HEMOGLOBIN 9.4 g/dL (12.0-15.5); LYMPH # 0.9 x10^3/uL (1.0-4.8); LYMPH % 16 % (24-48); MEAN CORPUSCULAR HEMOGLOBIN 32 pg (25-35); MEAN CORPUSCULAR HGB CONC 34 g/dL (31-37); MEAN CORPUSCULAR VOLUME 95 fL (79-100); MONO % 8 % (0-9); NEUT % 73 % (31-73); PLATELET COUNT 211 x10^3/uL (140-400); RED BLOOD COUNT 2.95 x10^6/uL (3.50-5.40); RED CELL DISTRIBUTION WIDTH 14.9 % (11.5-14.5); WHITE BLOOD COUNT 5.8 x10^3/uL (4.0-11.0)
[2016-06-19 05:58] LABS: CALCIUM 8.7 mg/dL (8.5-10.1); CREATININE 0.9 mg/dL (0.6-1.0); GFR 59.2; MAGNESIUM 1.9 mg/dL (1.8-2.4); POTASSIUM 4.1 mmol/L (3.5-5.1)
[2016-06-19] MEDS: LEVOTHYROXINE 125 MCG TABLET PO SCH (07:11)
[2016-06-19 07:45] VITALS: BP 114/75
[2016-06-19] MEDS: diazePAM 2 MG TABLET PO SCH (08:58)
[2016-06-19] MEDS: FUROSEMIDE 20 MG TABLET PO SCH (08:58)
[2016-06-19] MEDS: LISINOPRIL 20 MG TABLET PO SCH (08:58)
[2016-06-19] MEDS: ASPIRIN ENTERIC COATED 325 MG TABLET.DR. PO SCH (08:58)
[2016-06-19] MEDS: POTASSIUM CHLORIDE 20 MEQ TABLET.ER. PO SCH (08:58)
[2016-06-19] MEDS: CARVEDILOL 12.5 MG TABLET. PO SCH (08:59)
[2016-06-19] MEDS: PANTOPRAZOLE 40 MG TABLET.DR. PO SCH (08:59)
--- NOTE | 2016-06-19 10:15 | PDOC ---
IM PROGRESS NOTES- Subjective Subjective No dizziness,dyspnea. Objective Vitals Vital Signs Date Time Temp Pulse Resp B/P (MAP) Pulse Ox O2 Delivery O2 Flow Rate FiO2 06/19/16 09:00 114/75 06/19/16 08:59 74 06/19/16 08:00 Room Air 06/19/16 07:45 97.5 20 98 97.5 Input & Output Intake and Output 06/19/16 07:00 Intake Total 750 ml Balance 750 ml Intake Oral 750 ml # Voids 5 Physical Exam Physical Exam General appearance - alert,well appearing, and in no distress and oriented to person, place, and time Mental Status - alert, oriented to person, place, and time, affect appropriate to mood Head - normal Chest - clear to auscultation, no wheezes, rales or rhonchi, symmetric air entry Heart - S1 and S2 normal Abdomen - soft, nontender, nondistended, no masses or organomegaly Neurological - alert and oriented Musculoskeletal - no muscular tenderness noted Extremities - no pedal edema Skin - warm and dry Labs Laboratory Tests Test 06/17/16 16:40 06/17/16 22:45 06/18/16 04:25 06/19/16 05:05 Troponin I Quantitative < 0.017 ng/mL (0.000-0.055) < 0.017 ng/mL (0.000-0.055) White Blood Count 7.0 x10^3/uL (4.0-11.0) 5.8 x10^3/uL (4.0-11.0) Red Blood Count 3.23 x10^6/uL (3.50-5.40) 2.95 x10^6/uL (3.50-5.40) Hemoglobin 10.2 g/dL (12.0-15.5) 9.4 g/dL (12.0-15.5) Hematocrit 30.8 % (36.0-47.0) 28.0 % (36.0-47.0) Mean Corpuscular Volume 95 fL (79-100) 95 fL (79-100) Mean Corpuscular Hemoglobin 32 pg (25-35) 32 pg (25-35) Mean Corpuscular Hemoglobin Concent 33 g/dL (31-37) 34 g/dL (31-37) Red Cell Distribution Width 14.9 % (11.5-14.5) 14.9 % (11.5-14.5) Platelet Count 239 x10^3/uL (140-400) 211 x10^3/uL (140-400) Neutrophils (%) (Auto) 74 % (31-73) 73 % (31-73) Lymphocytes (%) (Auto) 17 % (24-48) 16 % (24-48) Monocytes (%) (Auto) 7 % (0-9) 8 % (0-9) Eosinophils (%) (Auto) 1 % (0-3) 3 % (0-3) Basophils (%) (Auto) 1 % (0-3) 1 % (0-3) Neutrophils # (Auto) 5.2 x10^3uL (1.8-7.7) 4.2 x10^3uL (1.8-7.7) Lymphocytes # (Auto) 1.2 x10^3/uL (1.0-4.8) 0.9 x10^3/uL (1.0-4.8) Monocytes # (Auto) 0.5 x10^3/uL (0.0-1.1) 0.5 x10^3/uL (0.0-1.1) Eosinophils # (Auto) 0.1 x10^3/uL (0.0-0.7) 0.2 x10^3/uL (0.0-0.7) Basophils # (Auto) 0.1 x10^3/uL (0.0-0.2) 0.0 x10^3/uL (0.0-0.2) Sodium Level 134 mmol/L (136-145) 137 mmol/L (136-145) Potassium Level 3.2 mmol/L (3.5-5.1) 4.1 mmol/L (3.5-5.1) Chloride Level 98 mmol/L (98-107) 103 mmol/L (98-107) Carbon Dioxide Level 24 mmol/L (21-32) 25 mmol/L (21-32) Anion Gap 12 (6-14) 9 (6-14) Blood Urea Nitrogen 24 mg/dL (7-20) 21 mg/dL (7-20) Creatinine 0.9 mg/dL (0.6-1.0) 0.9 mg/dL (0.6-1.0) Estimated GFR (Cockcroft-Gault) 59.2 59.2 Glucose Level 138 mg/dL (70-99) 91 mg/dL (70-99) Calcium Level 8.5 mg/dL (8.5-10.1) 8.7 mg/dL (8.5-10.1) Magnesium Level 1.9 mg/dL (1.8-2.4) Laboratory Tests Test 06/19/16 05:05 White Blood Count 5.8 x10^3/uL (4.0-11.0) Red Blood Count 2.95 x10^6/uL (3.50-5.40) Hemoglobin 9.4 g/dL (12.0-15.5) Hematocrit 28.0 % (36.0-47.0) Mean Corpuscular Volume 95 fL (79-100) Mean Corpuscular Hemoglobin 32 pg (25-35) Mean Corpuscular Hemoglobin Concent 34 g/dL (31-37) Red Cell Distribution Width 14.9 % (11.5-14.5) Platelet Count 211 x10^3/uL (140-400) Neutrophils (%) (Auto) 73 % (31-73) Lymphocytes (%) (Auto) 16 % (24-48) Monocytes (%) (Auto) 8 % (0-9) Eosinophils (%) (Auto) 3 % (0-3) Basophils (%) (Auto) 1 % (0-3) Neutrophils # (Auto) 4.2 x10^3uL (1.8-7.7) Lymphocytes # (Auto) 0.9 x10^3/uL (1.0-4.8) Monocytes # (Auto) 0.5 x10^3/uL (0.0-1.1) Eosinophils # (Auto) 0.2 x10^3/uL (0.0-0.7) Basophils # (Auto) 0.0 x10^3/uL (0.0-0.2) Sodium Level 137 mmol/L (136-145) Potassium Level 4.1 mmol/L (3.5-5.1) Chloride Level 103 mmol/L (98-107) Carbon Dioxide Level 25 mmol/L (21-32) Anion Gap 9 (6-14) Blood Urea Nitrogen 21 mg/dL (7-20) Creatinine 0.9 mg/dL (0.6-1.0) Estimated GFR (Cockcroft-Gault) 59.2 Glucose Level 91 mg/dL (70-99) Calcium Level 8.7 mg/dL (8.5-10.1) Magnesium Level 1.9 mg/dL (1.8-2.4) Meds Current Medications Potassium Chloride (Klor-Con) 20 meq 1X ONCE PO Last administered on t 14:07; Start 06/18/16 at 13:00; Stop 06/18/16 at 13:01; Status DC Assessment Assessment 1`. chest pain 2. A/C CHF systolic EF 21% diastolic dysfunction 3. HTN 4. hyperlipidemia 5. PPM 6. hypokalemia 7. CKD II 8. dizziness 9. anxiety 10. HH 11. anemia CD 12. severe pulmonary HTN 13. hypothyroid PLAN: Chest pain EKG paced troponin negative ?acute on chronic CHF vs anxiety cardiology consulted ascites noted CXR at admission CHF Total Lasix 60mg IV 06/17 CXR pending 06/18 IO Daily weight Lasix 20mg po home dose currently. CKD II Admit BUN 21 06/18 24 Cr 0.8 0.9 K 4.0 3.2 Replace K 20 meq x 1 today-recheck 06/19am (currently home 20 bid) Dizziness ?TIA-ASA 325 mg daily recent orthostatic negative CVA-[address] change, negative CT head 2 days later no MRI due to PPM anemia CD Admit 10.7 06/18 10.2 monitor DVT/GI prophylaxis SCD/CAROL PPI Doing well. D/w daughter.Pt takes Valium only occasionally,but takes Meclizine for dizziness. Ok to discharge home with [facility]..see in 5 days. D/c Valium Discharge Management - 35 minutes. Plan Plan D/w patient,family- Na,fluid restriction d/w them. Hypokalemia- replace. The patient was seen and examined by me. Chart reviewed and plan of care formulated. Discussed with, reviewed and agree with TRAFFIC ANALYSIS TECHNICIAN's notes, plan of care and orders with modifications as necessary. For more details regarding further plans, please refer to the orders. MESHA CASTILLO MD June 19, 2016 10:15
[2016-06-19 11:00] VITALS: BP 114/55
[2016-06-19] MEDS ORDERED: MECL25TA3 PO (11:45)
--- NOTE | 2016-06-23 12:30 | PDOC3 ---
IM DISCHARGE SUMMARY Date of Admission Date of Admission Date of Admission: June 17, 2016 at 10:59 Date of Discharge Date of Discharge 06/19/16 Primary Diagnosis Primary Diagnosis Assessment 1`. chest pain due to a/c CHF 2. A/C CHF systolic EF 21% diastolic dysfunction 3. HTN 4. hyperlipidemia 5. PPM 6. hypokalemia 7. CKD II 8. dizziness 9. anxiety 10. HH 11. anemia CD 12. severe pulmonary HTN 13. hypothyroid Problems: Consults Consults Gerald Conklin MD Procedures Procedures None Labs Labs See EMR Brief hospital course Brief hospital course This 85 year old female who presented with chest pain was admitted. The following is a summary of her treatment: Chest pain due to acute on chronic CHF EKG paced troponin negative ?acute on chronic CHF vs anxiety cardiology consulted ascites noted CXR at admission CHF Total Lasix 60mg IV 06/17 CXR pending 06/18 IO Daily weight Lasix 20mg po home dose currently. CKD II Admit BUN 21 06/18 24 Cr 0.8 0.9 K 4.0 3.2 Replace K 20 meq x 1 today-recheck 06/19am (currently home 20 bid) Dizziness ?TIA-ASA 325 mg daily recent orthostatic negative CVA-[address] change, negative CT head 2 days later no MRI due to PPM anemia CD Admit 10.7 06/18 10.2 monitor DVT/GI prophylaxis SCD/CAROL PPI Ok to discharge home with [facility]..see in 5 days. D/c Valium Discharge Management - 35 minutes. For more details regarding the past history, family history, social history, surgical history and other details, please refer to History and Physical. Medications Medications reviewed and reconciled for discharge. Allergy Allergies Coded Allergies Type Severity Reaction Last Updated Verified No Known Drug Allergies 11/24/[address] Gabriel in 5 days. DISPOSITION: Home health services Comments Discharge Management - 35 minutes. For other details please refer to discharge instructions JIA BENOIT [employer] June 23, 2016 12:30
== END 2016-06-19 13:30 | disposition home health service (06) ==
LOC: ER 10:52 → 2 SOUTH 10:59
PROVIDERS: ADMIT Internal Medicine; ATTEND Internal Medicine
DX: R07.9 Chest pain, unspecified (principal); I50.43 Acute on chronic combined systolic (congestive) and diastolic (congestive) heart failure; I13.0 Hypertensive heart and chronic kidney disease with heart failure and stage 1 through stage 4 chronic kidney disease, or unspecified chronic kidney disease; N18.2 Chronic kidney disease, stage 2 (mild); E78.5 Hyperlipidemia, unspecified; E87.6 Hypokalemia; R42 Dizziness and giddiness; F41.9 Anxiety disorder, unspecified; D64.9 Anemia, unspecified; I27.2 Other secondary pulmonary hypertension; E03.9 Hypothyroidism, unspecified; E78.00 Pure hypercholesterolemia, unspecified; E83.110 Hereditary hemochromatosis; Z95.0 Presence of cardiac pacemaker; Z82.49 Family history of ischemic heart disease and other diseases of the circulatory system; Z86.73 Personal history of transient ischemic attack (TIA), and cerebral infarction without residual deficits
CPT/HCPCS: 36415; 71010; 71020; 80048; 80076; 81001; 83605; 83690; 83735; 83880; 84484; 85027; 87086; 93005; 93970; 96374; 96376; 97161; 97165; 99285; G0378; G8978; G8979; G8980; G8987; G8988; G8989; J1940; G0379

== ENCOUNTER 2017-09-05 14:36 | Inpatient (IN) | payer BC ==
[2017-09-05 16:58] LABS: ADD MAN DIFF? NO
[2017-09-05 17:00] LABS: BASO % 1 % (0-3); EOS % 0 % (0-3); HEMATOCRIT 32.8 % (36.0-47.0); HEMOGLOBIN 10.7 g/dL (12.0-15.5); LYMPH # 0.6 x10^3/uL (1.0-4.8); LYMPH % 13 % (24-48); MEAN CORPUSCULAR HEMOGLOBIN 31 pg (25-35); MEAN CORPUSCULAR HGB CONC 33 g/dL (31-37); MEAN CORPUSCULAR VOLUME 94 fL (79-100); MONO # 0.4 x10^3/uL (0.0-1.1); MONO % 8 % (0-9); NEUT # 3.8 x10^3uL (1.8-7.7); NEUT % 78 % (31-73); PLATELET COUNT 146 x10^3/uL (140-400); RED BLOOD COUNT 3.48 x10^6/uL (3.50-5.40); RED CELL DISTRIBUTION WIDTH 18.2 % (11.5-14.5); WHITE BLOOD COUNT 4.8 x10^3/uL (4.0-11.0)
[2017-09-05 17:18] LABS: ALBUMIN 3.1 g/dL (3.4-5.0); ALBUMIN/GLOBULIN RATIO 0.9 (1.0-1.7); ALK PHOS 75 U/L (46-116); ALT (SGPT) 13 U/L (14-59); ANION GAP 12 (6-14); AST (SGOT) 21 U/L (15-37); BLOOD UREA NITROGEN 41 mg/dL (7-20); BUN/CREATININE RATIO 27 (6-20); CALCIUM 8.6 mg/dL (8.5-10.1); CARBON DIOXIDE 23 mmol/L (21-32); CHLORIDE 102 mmol/L (98-107); CREATININE 1.5 mg/dL (0.6-1.0); GFR 32.7; GLUCOSE 106 mg/dL (70-99); POTASSIUM 4.2 mmol/L (3.5-5.1); SODIUM 137 mmol/L (136-145); TOTAL BILIRUBIN 1.8 mg/dL (0.2-1.0); TOTAL PROTEIN 6.5 g/dL (6.4-8.2)
[2017-09-05 17:26] LABS: NT-PRO BNP 15942 pg/mL (0-449)
[2017-09-05 17:30] LABS: THYROID STIM HORMONE (TSH) 3.002 uIU/mL (0.358-3.74)
[2017-09-05] MEDS: FUROSEMIDE 100 MG/10 ML VIAL. IVP (17:58)
[2017-09-05] MEDS: CARVEDILOL 12.5 MG TABLET. PO (18:41)
[2017-09-05] MEDS: POTASSIUM CHLORIDE 20 MEQ TABLET.ER. PO (18:42)
[2017-09-05] MEDS: HEPARIN PF for SUB-Q USE 5,000 UNIT/0.5 ML VIAL. SQ (18:51)
[2017-09-05] MEDS: SIMVASTATIN 20 MG TABLET PO (20:52)
[2017-09-05] MEDS: ACETAMINOPHEN 325 MG TABLET. PO (21:17)
[2017-09-06] MEDS: LEVOTHYROXINE 125 MCG TABLET PO (06:30)
[2017-09-06 06:57] LABS: ADD MAN DIFF? NO
[2017-09-06 07:06] LABS: BASO % 1 % (0-3); EOS % 1 % (0-3); HEMATOCRIT 29.9 % (36.0-47.0); LYMPH # 0.5 x10^3/uL (1.0-4.8); LYMPH % 11 % (24-48); MEAN CORPUSCULAR HEMOGLOBIN 31 pg (25-35); MEAN CORPUSCULAR HGB CONC 34 g/dL (31-37); MEAN CORPUSCULAR VOLUME 93 fL (79-100); MONO # 0.4 x10^3/uL (0.0-1.1); MONO % 8 % (0-9); NEUT # 3.6 x10^3uL (1.8-7.7); NEUT % 80 % (31-73); PLATELET COUNT 134 x10^3/uL (140-400); RED CELL DISTRIBUTION WIDTH 18.4 % (11.5-14.5); WHITE BLOOD COUNT 4.5 x10^3/uL (4.0-11.0)
[2017-09-06] MEDS: CARVEDILOL 12.5 MG TABLET. PO ×2 (08:20→16:42)
[2017-09-06] MEDS: POTASSIUM CHLORIDE 20 MEQ TABLET.ER. PO ×2 (08:20→16:45)
[2017-09-06] MEDS: FUROSEMIDE 100 MG/10 ML VIAL. IVP ×3 (08:21→22:50)
[2017-09-06] MEDS: ASPIRIN CHEWABLE 81 MG TABLET. PO (08:23)
[2017-09-06] MEDS: LACTOBACILLUS RHAMNOSUS GG 1 CAPSULE. PO ×2 (08:24→21:23)
[2017-09-06] MEDS: LISINOPRIL 5 MG TABLET. PO (08:24)
[2017-09-06] MEDS: DOXYCYCLINE HYCLATE 100 MG TABLET PO (08:24)
[2017-09-06] MEDS: HEPARIN PF for SUB-Q USE 5,000 UNIT/0.5 ML VIAL. SQ ×2 (08:43→21:24)
[2017-09-06 08:47] LABS: ALBUMIN 2.9 g/dL (3.4-5.0); ALBUMIN/GLOBULIN RATIO 0.9 (1.0-1.7); ALK PHOS 68 U/L (46-116); ALT (SGPT) 17 U/L (14-59); ANION GAP 10 (6-14); AST (SGOT) 19 U/L (15-37); BLOOD UREA NITROGEN 41 mg/dL (7-20); BUN/CREATININE RATIO 32 (6-20); CALCIUM 8.5 mg/dL (8.5-10.1); CARBON DIOXIDE 25 mmol/L (21-32); CHLORIDE 102 mmol/L (98-107); CHOLESTEROL 94 mg/dL (0-200); CREATININE 1.3 mg/dL (0.6-1.0); GFR 38.6; GLUCOSE 77 mg/dL (70-99); HDLC 31 mg/dL (40-60); LDLC 53 mg/dL (0-100); NON-HDL CHOLESTEROL 63 mg/dL (0-129); POTASSIUM 3.8 mmol/L (3.5-5.1); SODIUM 137 mmol/L (136-145); TOTAL BILIRUBIN 1.7 mg/dL (0.2-1.0); TRIGLYCERIDES 49 mg/dL (0-150); VLDLC 10 mg/dL (0-40)
[2017-09-06] MEDS ORDERED: FUROSEMIDE 40 MG TABLET. PO (09:00)
[2017-09-06] MEDS: IPRATRPIUM/ALBUTEROL 0.5/2.5MG 3 ML NEBU. NEB ×4 (12:15→20:11)
[2017-09-06] MEDS: ALBUMIN HUMAN 25% 100 ML IV (21:22)
[2017-09-06] MEDS: SIMVASTATIN 20 MG TABLET PO (21:22)
[2017-09-07 05:50] LABS: ANION GAP 10 (6-14); BLOOD UREA NITROGEN 39 mg/dL (7-20); CALCIUM 8.3 mg/dL (8.5-10.1); CARBON DIOXIDE 26 mmol/L (21-32); CHLORIDE 102 mmol/L (98-107); CREATININE 1.3 mg/dL (0.6-1.0); GFR 38.6; GLUCOSE 87 mg/dL (70-99); MAGNESIUM 1.8 mg/dL (1.8-2.4); POTASSIUM 3.4 mmol/L (3.5-5.1); SODIUM 138 mmol/L (136-145)
[2017-09-07] MEDS: LEVOTHYROXINE 125 MCG TABLET PO (06:27)
[2017-09-07] MEDS: CARVEDILOL 12.5 MG TABLET. PO ×2 (08:00→17:00)
[2017-09-07] MEDS: IPRATRPIUM/ALBUTEROL 0.5/2.5MG 3 ML NEBU. NEB ×4 (08:07→19:55)
[2017-09-07] MEDS: LISINOPRIL 5 MG TABLET. PO (09:00)
[2017-09-07] MEDS: LACTOBACILLUS RHAMNOSUS GG 1 CAPSULE. PO ×2 (09:09→21:04)
[2017-09-07] MEDS: POTASSIUM CHLORIDE 20 MEQ TABLET.ER. PO ×3 (09:10→17:00)
[2017-09-07] MEDS: FUROSEMIDE 100 MG/10 ML VIAL. IVP ×2 (09:10→16:00)
[2017-09-07] MEDS: ASPIRIN CHEWABLE 81 MG TABLET. PO (09:11)
[2017-09-07] MEDS: DOXYCYCLINE HYCLATE 100 MG TABLET PO (09:11)
[2017-09-07] MEDS: HEPARIN PF for SUB-Q USE 5,000 UNIT/0.5 ML VIAL. SQ ×2 (09:22→21:06)
[2017-09-07] MEDS: DOCUSATE SODIUM 100 MG CAPSULE. PO (13:29)
[2017-09-07] MEDS: SIMVASTATIN 20 MG TABLET PO (21:04)
[2017-09-08] MEDS: LEVOTHYROXINE 125 MCG TABLET PO (05:25)
[2017-09-08 05:49] LABS: ANION GAP 11 (6-14); BLOOD UREA NITROGEN 37 mg/dL (7-20); CALCIUM 8.6 mg/dL (8.5-10.1); CARBON DIOXIDE 25 mmol/L (21-32); CHLORIDE 102 mmol/L (98-107); CREATININE 1.3 mg/dL (0.6-1.0); GFR 38.6; GLUCOSE 87 mg/dL (70-99); POTASSIUM 3.4 mmol/L (3.5-5.1); SODIUM 138 mmol/L (136-145)
[2017-09-08] MEDS: CARVEDILOL 12.5 MG TABLET. PO ×2 (08:00→18:09)
[2017-09-08] MEDS: IPRATRPIUM/ALBUTEROL 0.5/2.5MG 3 ML NEBU. NEB ×4 (08:19→19:27)
[2017-09-08] MEDS: LACTOBACILLUS RHAMNOSUS GG 1 CAPSULE. PO ×2 (08:58→20:52)
[2017-09-08] MEDS: DOXYCYCLINE HYCLATE 100 MG TABLET PO (08:58)
[2017-09-08] MEDS: POTASSIUM CHLORIDE 20 MEQ TABLET.ER. PO ×4 (08:59→18:08)
[2017-09-08] MEDS: ASPIRIN CHEWABLE 81 MG TABLET. PO (08:59)
[2017-09-08] MEDS: FUROSEMIDE 100 MG/10 ML VIAL. IVP ×2 (08:59→20:51)
[2017-09-08] MEDS: LISINOPRIL 5 MG TABLET. PO (09:00)
[2017-09-08] MEDS: HEPARIN PF for SUB-Q USE 5,000 UNIT/0.5 ML VIAL. SQ ×2 (09:03→20:59)
[2017-09-08] MEDS: SIMVASTATIN 20 MG TABLET PO (20:52)
[2017-09-09 05:14] LABS: ANION GAP 10 (6-14); BLOOD UREA NITROGEN 37 mg/dL (7-20); CALCIUM 8.9 mg/dL (8.5-10.1); CARBON DIOXIDE 26 mmol/L (21-32); CHLORIDE 104 mmol/L (98-107); CREATININE 1.3 mg/dL (0.6-1.0); GFR 38.6; GLUCOSE 90 mg/dL (70-99); POTASSIUM 3.7 mmol/L (3.5-5.1); SODIUM 140 mmol/L (136-145)
[2017-09-09] MEDS: LEVOTHYROXINE 125 MCG TABLET PO (07:17)
[2017-09-09] MEDS: IPRATRPIUM/ALBUTEROL 0.5/2.5MG 3 ML NEBU. NEB ×4 (08:14→20:10)
[2017-09-09] MEDS: ASPIRIN CHEWABLE 81 MG TABLET. PO (08:25)
[2017-09-09] MEDS: LISINOPRIL 5 MG TABLET. PO (08:25)
[2017-09-09] MEDS: POTASSIUM CHLORIDE 20 MEQ TABLET.ER. PO ×3 (08:26→17:57)
[2017-09-09] MEDS: DOXYCYCLINE HYCLATE 100 MG TABLET PO (08:26)
[2017-09-09] MEDS: CARVEDILOL 12.5 MG TABLET. PO ×2 (08:27→17:00)
[2017-09-09] MEDS: LACTOBACILLUS RHAMNOSUS GG 1 CAPSULE. PO ×2 (08:27→20:55)
[2017-09-09] MEDS: HEPARIN PF for SUB-Q USE 5,000 UNIT/0.5 ML VIAL. SQ ×2 (08:34→21:03)
[2017-09-09] MEDS: FUROSEMIDE 100 MG/10 ML VIAL. IVP (08:35)
[2017-09-09] MEDS: FUROSEMIDE 80 MG TABLET. PO ×2 (13:51→17:56)
[2017-09-09] MEDS: SIMVASTATIN 20 MG TABLET PO (20:55)
[2017-09-10 04:57] LABS: PLATELET COUNT 130 x10^3/uL (140-400)
[2017-09-10] MEDS: LEVOTHYROXINE 125 MCG TABLET PO (08:01)
[2017-09-10] MEDS: IPRATRPIUM/ALBUTEROL 0.5/2.5MG 3 ML NEBU. NEB ×2 (08:15→12:12)
[2017-09-10] MEDS: FUROSEMIDE 80 MG TABLET. PO ×2 (08:46→13:16)
[2017-09-10] MEDS: LACTOBACILLUS RHAMNOSUS GG 1 CAPSULE. PO (08:46)
[2017-09-10] MEDS: CARVEDILOL 12.5 MG TABLET. PO (08:47)
[2017-09-10] MEDS: DOXYCYCLINE HYCLATE 100 MG TABLET PO (08:48)
[2017-09-10] MEDS: ASPIRIN CHEWABLE 81 MG TABLET. PO (08:48)
[2017-09-10] MEDS: POTASSIUM CHLORIDE 20 MEQ TABLET.ER. PO ×2 (08:48→13:15)
[2017-09-10] MEDS: HEPARIN PF for SUB-Q USE 5,000 UNIT/0.5 ML VIAL. SQ (08:54)
[2017-09-10] MEDS: LISINOPRIL 5 MG TABLET. PO (09:00)
== END 2017-09-10 13:20 | disposition home health service (06) | DRG 291 ==
LOC: 2 SOUTH 14:36
DX: I13.0 Hypertensive heart and chronic kidney disease with heart failure and stage 1 through stage 4 chronic kidney disease, or unspecified chronic kidney disease (principal); I50.43 Acute on chronic combined systolic (congestive) and diastolic (congestive) heart failure; I42.0 Dilated cardiomyopathy; N61.0 Mastitis without abscess; E78.5 Hyperlipidemia, unspecified; E03.9 Hypothyroidism, unspecified; N18.9 Chronic kidney disease, unspecified; F41.9 Anxiety disorder, unspecified; Z82.49 Family history of ischemic heart disease and other diseases of the circulatory system; Z95.0 Presence of cardiac pacemaker; Z98.49 Cataract extraction status, unspecified eye
CPT/HCPCS: 36415; 71046; 76641; 80048; 80053; 80061; 83735; 83880; 84443; 85025; 85049; 93005; 93306; 93970; 94640; 94760; 97161-GP; 97165-GO; 97535-GO; J7620; P9046